=== PATIENT | male | born 1955 | race Two or more races ===

== ENCOUNTER → 2022-06-13 10:05 | Outpatient (BNVA) | payer OTHER, SELFPAY | PROVIDERS: PCP Hospitalist; Visit Provider Urology | DX: N52.9 Male erectile dysfunction, unspecified (principal); T83.9XXA Unspecified complication of genitourinary prosthetic device, implant and graft, initial encounter | CPT/HCPCS: 51798; 99202 ==

== ENCOUNTER → 2022-08-03 13:23 | Outpatient (BNVA) | payer OTHER, SELFPAY | PROVIDERS: PCP Hospitalist; Visit Provider Urology | DX: T83.9XXA Unspecified complication of genitourinary prosthetic device, implant and graft, initial encounter (principal) | CPT/HCPCS: 99212 ==

== ENCOUNTER → 2022-08-30 11:35 | Outpatient (BNVA) | payer OTHER, SELFPAY | PROVIDERS: PCP Hospitalist; Visit Provider Urology | DX: T83.9XXA Unspecified complication of genitourinary prosthetic device, implant and graft, initial encounter (principal); N52.9 Male erectile dysfunction, unspecified | CPT/HCPCS: 99212 ==

== ENCOUNTER 2022-09-25 07:47 | Day surgery (SDC) | payer OTHER, SELFPAY ==
[2022-09-14 11:30] VITALS: BMI 28.6
--- NOTE | 2022-09-19 14:03 | HO.ANESPROP2 ---
Documented by User: Yue Benedict NP 09/19/22 14:06 HPI - Anesthesia Eval Consult details Narrative: 66yo M for Penile Prosthesis revision Cardiology cleared [facility] Active Problems Active Problems: All Active Problems (Updated 08/23/22 @ 13:33 by Magnolia Ladd RN) Disorder of implanted penile prosthesis (Acute) Erectile dysfunction (Acute) Past Medical History Medical History Anxiety and depression BPH (benign prostatic hyperplasia) CAD (coronary artery disease) Diabetes mellitus Elevated cholesterol Erectile dysfunction HTN (hypertension) Low back pain Osteoporosis Surgical History Surgical History H/O colonoscopy History of ankle surgery History of back surgery History of penile implant Hx of appendectomy Hx of arthroscopic knee surgery Hx of CABG Social History Social History (Updated 09/14/22 @ 11:29 by Magnolia Ladd RN) Patient Tobacco Use Status: Former Tobacco user Quit Date: 2019 Tobacco use type: Cigarette Are you DNR?: No Advance Directives: No Advance Directives Information Provided: Yes Nutrition Risks: No Nutritional Risk Meds Allergies Allergy/AdvReac Type Severity Reaction Status Date / Time No Known Allergies Allergy Verified 09/25/22 08:10 [No Known Allergies*] Home Medications Medication Instructions Recorded Confirmed Last Taken Type blood sugar diagnostic (FreeStyle #10 ea 06/13/22 Unknown History Lite Strips) blood-glucose meter (FreeStyle #1 ea 06/13/22 Unknown History Lite Meter kit) cholecalciferol (vitamin D3) 25 25 mcg PO DAILY 06/13/22 09/14/22 Unknown History mcg (1,000 unit) tablet cyanocobalamin (vitamin B-12) 1,000 mcg PO DAILY 06/13/22 09/14/22 Unknown History 1,000 mcg tablet,extended release cyclobenzaprine 10 mg tablet 10 mg PO BEDTIME 06/13/22 Unknown History dulaglutide 3 mg/0.5 mL 3 mg subcut QWEEK 06/13/22 09/14/22 Unknown History subcutaneous pen injector (Trulicity) empagliflozin 25 mg tablet 25 mg PO DAILY 06/13/22 09/14/22 Unknown History (Jardiance) ferrous sulfate 325 mg (65 mg 325 mg PO DAILY 06/13/22 09/18/22 History iron) tablet (FeroSul) glipizide 10 mg tablet, extended 10 mg PO BID 06/13/22 09/14/22 Unknown History release 24 hr lancets 28 gauge (FreeStyle #100 ea 06/13/22 Unknown History Lancets) meloxicam 15 mg tablet 15 mg PO DAILY 06/13/22 Unknown History metformin 1,000 mg tablet 1,000 mg PO BID 06/13/22 09/14/22 Unknown History pantoprazole 20 mg tablet,delayed 20 mg PO DAILY 06/13/22 09/14/22 09/25/22 History release topiramate 25 mg tablet 25 mg PO BID 06/13/22 09/14/22 Unknown History aspirin 81 mg tablet,delayed 1 tab PO DAILY 08/23/22 09/14/22 09/18/22 History release atorvastatin 40 mg tablet 2 tab PO DAILY 08/23/22 09/14/22 Unknown History duloxetine 60 mg capsule,delayed 1 cap PO QAM 08/23/22 09/14/22 09/25/22 History release sulfasalazine 500 mg tablet 2 tab PO BID 08/23/22 09/14/22 Unknown History trazodone 100 mg tablet 1 tab PO BEDTIME 08/23/22 09/14/22 Unknown History Exam Exam Date and Time: September 19, 2022 1403 Height,Weight and Vital Signs: Height 5 ft 6 in Weight 80.5 kg Pertinent Lab Results Pertinent Lab Results: 03/2022 CBC, wnl BMP with elevated K @5.9 Narrative Narrative: ECHO 2019 LV nml in size, wall thickness, and systolic function EF 55-65% No RWMA Grade 1, mild DD with impaired LV relax No signif valve disease Assessment and Plan Assessment Anesthesia Assessment: Chart Reviewed Documented by User: Bang Stark MD 09/25/22 09:27 [facility] Past Medical History Medical History Anxiety and depression BPH (benign prostatic hyperplasia) CAD (coronary artery disease) Diabetes mellitus Elevated cholesterol Erectile dysfunction HTN (hypertension) Low back pain Osteoporosis Family History Family history of problems with anesthesia: No Surgical History Surgical History H/O colonoscopy History of ankle surgery History of back surgery History of penile implant Hx of appendectomy Hx of arthroscopic knee surgery Hx of CABG History of Problems with Anesthesia: No Social History Social History (Updated 09/14/22 @ 11:29 by Magnolia Ladd RN) Patient Tobacco Use Status: Former Tobacco user Quit Date: 2019 Tobacco use type: Cigarette Are you DNR?: No Advance Directives: No Advance Directives Information Provided: Yes Nutrition Risks: No Nutritional Risk Meds Allergies Allergy/AdvReac Type Severity Reaction Status Date / Time No Known Allergies Allergy Verified 09/25/22 08:10 [No Known Allergies*] Home Medications Medication Instructions Recorded Confirmed Last Taken Type blood sugar diagnostic ([employer]ston PharmaceuticalsStyle #10 ea 06/13/22 Unknown History Lite Strips) blood-glucose meter ([employer]Style #1 ea 06/13/22 Unknown History Lite Meter kit) cholecalciferol (vitamin D3) 25 25 mcg PO DAILY 06/13/22 09/14/22 Unknown History mcg (1,000 unit) tablet cyanocobalamin (vitamin B-12) 1,000 mcg PO DAILY 06/13/22 09/14/22 Unknown History 1,000 mcg tablet,extended release cyclobenzaprine 10 mg tablet 10 mg PO BEDTIME 06/13/22 Unknown History dulaglutide 3 mg/0.5 mL 3 mg subcut QWEEK 06/13/22 09/14/22 Unknown History subcutaneous pen injector (Trulicity) empagliflozin 25 mg tablet 25 mg PO DAILY 06/13/22 09/14/22 Unknown History (Jardiance) ferrous sulfate 325 mg (65 mg 325 mg PO DAILY 06/13/22 09/18/22 History iron) tablet (FeroSul) glipizide 10 mg tablet, extended 10 mg PO BID 06/13/22 09/14/22 Unknown History release 24 hr lancets 28 gauge (FreeStyle #100 ea 06/13/22 Unknown History Lancets) meloxicam 15 mg tablet 15 mg PO DAILY 06/13/22 Unknown History metformin 1,000 mg tablet 1,000 mg PO BID 06/13/22 09/14/22 Unknown History pantoprazole 20 mg tablet,delayed 20 mg PO DAILY 06/13/22 09/14/22 09/25/22 History release topiramate 25 mg tablet 25 mg PO BID 06/13/22 09/14/22 Unknown History aspirin 81 mg tablet,delayed 1 tab PO DAILY 08/23/22 09/14/22 09/18/22 History release atorvastatin 40 mg tablet 2 tab PO DAILY 08/23/22 09/14/22 Unknown History duloxetine 60 mg capsule,delayed 1 cap PO QAM 08/23/22 09/14/22 09/25/22 History release sulfasalazine 500 mg tablet 2 tab PO BID 08/23/22 09/14/22 Unknown History trazodone 100 mg tablet 1 tab PO BEDTIME 08/23/22 09/14/22 Unknown History Exam Airway Mallampati Class: II TM Dist: >3cm Neck ROM: Full Loose/Missing/Broken Teeth: No Heart: rrr Lungs: clear Assessment and Plan Final Anesthetic Review Family History of Problems with Anesthesia: No History of Problems with Anesthesia: No NPO: Yes ASA Class: III Final Preanesthetic Review: No Changes in Pt Med Stat, Meds/Allgs Chart Reviewed, Consent Obtained/Reviewed and Anes Risks/Benef Reviewed Patient Risk: Intermediate Procedure Risk: Low Anesthetic Plan Anesthetic Plan: GA Disposition: Standard PACU
[2022-09-25] VITALS (11 sets, daily range): BP systolic 135–174; BP diastolic 66–89; PULSE 59–72; RESP 12–18; TEMP 36.1–36.7; O2SAT 97–100
--- NOTE | 2022-09-25 | ECG_ITS ---
Test Reason : preop Blood Pressure : / mmHG Vent. Rate : 066 BPM Atrial Rate : 066 BPM P-R Int : 188 ms QRS Dur : 098 ms QT Int : 394 ms P-R-T Axes : 081 052 087 degrees QTc Int : 413 ms Normal sinus rhythm with sinus arrhythmia Inferior infarct , age undetermined Nonspecific T wave abnormality Abnormal ECG No previous ECGs available Referred By: Yue Benedict Electronically Signed By:SAJI PEDRAZA MD
[2022-09-25 08:22] LABS: Glucose, Whole Blood 146 mg/dL (60-115)
[2022-09-25] MEDS: Lactated Ringers 1,000 ML 100 ML IVCONT (08:24)
[2022-09-25] MEDS: Acetaminophen 325 MG TABLET 650 MG PO (08:40)
[2022-09-25 09:13] LABS: Blood Urea Nitrogen 24 mg/dL (9-16); Calcium 9.4 mg/dL (8.4-10.2); Creatinine Clr Calc Pharmacy 91.8; Estimated Glomerular Filt Rate > 60; Glucose Fasting 129 mg/dL (60-99)
[2022-09-25 09:32] LABS: Anion Gap 14 (12-20); Carbon Dioxide 23 mmol/L (22-29); Chloride 108 mmol/L (96-108); Potassium 4.4 mmol/L (3.3-5.1); Sodium 141 mmol/L (135-145)
--- NOTE | 2022-09-25 11:47 | MHC.SHP ---
Pre-Procedural Eval Section A Date of Service: 09/25/22 The patient is an INPATIENT: No Changes since office visit: No Cold of Flu in the past 2 weeks, No New Medical Problems, No Changes in Medication and No Patient answered all questions The History & Physical has been completed within 30 days and I have reviewed it.: Yes Section B Chief Complaint: Male erectile dysfunction, unspecified Allergies: Allergies Allergy/AdvReac Type Severity Reaction Status Date / Time No Known Allergies Allergy Verified 09/25/22 08:10 [No Known Allergies*] Plan Diagnosis/Plan: Unchanged (Revision and/or replacement of penile prosthetic) I have reviewed the history and physical and performed a pertinent physical examination on my patient. No changes have occurred unless specified.
--- NOTE | 2022-09-25 11:48 | W.PM.OPN ---
Operative Note Operative Note Date of Service: 09/25/22 Narrative: PreOperative Diagnosis: Erectile dysfunction with malfunctioning penile prosthetic Post Operative Diagnosis: erectile dysfunction with malfunctioning three-piece penile prosthetic Procedure: penile prosthetic removal and replacement with 2 piece ambicor prosthetic Surgeon: Dr Thony Lord Anesthesia: general Indications for procedure: prior placement of three-piece prosthetic using infrapubic approach. Has malfunction of penile pump in penile pump is riding high in scrotum in unable to be accessed. Patient would like to have removal with replacement of semi inflatable prosthetic. He is diabetic Procedure: After informed consent was verified the patient was brought to the operating room and placed in a supine position. Anesthesia was administered per protocol. The patient was prepped and draped in a sterile fashion. Safety pause time-out performed. Antibiotics have been given. Since he is a diabetic he was given triple coverage with IV cefazolin, Pip-Tazo and fluconazole. Per 2019 guideline. Wilcox catheter was placed on the field. Bladder was drained. Hixson retractor placed. Local antibiotics infiltrated along median raphe A Penile scrotal incision was made and taken down to the tunica. Dissection was performed 1st on the left side and then on the right side to fully expose tunica of the corpora. At this point stay hooks were placed. The penile pump was dissected free from reactive tissue and released. The reserve wire tubing was followed up into the groin and since the bulb of the reservoir was unable to be felt the reservoir was divided. This is performed after the indwelling prosthetic had been partially inflated. incision was made through the left corporal wall onto the indwelling penile prosthetic. The appropriate tubing was identified and divided. The prosthetic was then removed from the corporal body and handed off the field. It measured 15 cm with no rear tip extenders. A similar procedure was repeated for the right side. Using Hegar dilators the corporal body was dilated until it could accept a 13 Hegar dilator. Similar procedure was repeated on the right-hand side. The corporal bodies were washed with antibiotic normal saline. 3-0 Vicryl stay sutures were placed through the tunica and labeled and marked bilaterally. At this point the measuring device was introduced. Posterior measured at Nine cm and the front measured approximately 10 cm on the left. on the right 10cm/9cm. A penile prosthetic ambicor 18 cm with 1 cm rear tip extenders was used. The introducer needle was used to thread the distal tip threaded from the prostatic on the right side. This was then introduced through corporal defect and the needle removed out through the glans of the penis. The prosthetic was then placed into the corporal body with the posterior aspect 1st using the enclosed pusher device. Once the posterior aspect had been introduced the anterior aspect was then introduced and brought out to the distal portion of the corpora. This was done 1st on the right side and then repeated on the left side. The penile prosthetic was inflated. Good positioning was seen. Minimal buckling was seen at the corporal incision site. The penile prosthetic was deflated. The stay sutures through the tunica was then secured. The scrotum was irrigated. Blunt dissection was performed to create a scrotal pocket. 3-0 Vicryl was then used to secure tissue so the pump was kept in the dependent position. Tissue was reapproximated with 3-0 Vicryl in both the horizontal and then vertical fashion. At least 2 layers were placed over all tubing. Skin was closed using Running Monocryl suture followed by glue. Wilcox catheter was removed. He tolerated the procedure well was extubated in operating room transferred in stable condition to the recovery area.
[2022-09-25] MEDS: fentaNYL citrate/PF 100 MCG/2 ML VIAL 25 MCG IVPUSH ×4 (11:56→12:36)
[2022-09-25] MEDS: oxyCODONE HCl Immed Release 5 MG TABLET 10 MG PO (12:05)
== END 2022-09-25 13:57 | disposition home or self-care (01) ==
PROVIDERS: Nurse Practitioner; PCP Hospitalist; Visit Provider Urology
PROC: (CPT 54410; principal; 2022-09-25 09:40)
DX: T83.490A Other mechanical complication of implanted penile prosthesis, initial encounter (principal); Y83.8 Other surgical procedures as the cause of abnormal reaction of the patient, or of later complication, without mention of misadventure at the time of the procedure; Y92.9 Unspecified place or not applicable; N52.9 Male erectile dysfunction, unspecified; E11.9 Type 2 diabetes mellitus without complications; I10 Essential (primary) hypertension; I25.10 Atherosclerotic heart disease of native coronary artery without angina pectoris; Z79.82 Long term (current) use of aspirin; Z79.84 Long term (current) use of oral hypoglycemic drugs; Z79.899 Other long term (current) drug therapy
CPT/HCPCS: 54410; 36415; 80048; 82947; 93005; C1813; J0690; J1100; J1450; J1580; J2250; J2405; J2543; J2795; J3010

== ENCOUNTER 2022-10-11 13:26 | Outpatient (AMB) | payer MEDICARE, MEDICAID, SELFPAY ==
--- OUTSIDE RECORDS SUMMARY | 2022-10-11 13:28 | XMS_ITS | Continuity of Care Document ---
:1955 Author Organization [facility] Address [address] [place] [address]- Care Team Providers Name Role Phone Ko Kenyon MD Primary Care Physician [place] [facility] [place] 07/04/22 - 09/01/22 [facility] [address] [place] [id number] Attending Physician: Bj Jerez DO Admitting Physician: Bj Jerez DO Allergies, Adverse Reactions, Alerts No Known Allergies Immunizations Not Given Vaccine Date Status Refusal Reason pneumococcal 23-valent vaccine1 05/24/20 Not Given Patient Refuses 1Result Comment: Already received from PCP Medications Artificial Tears 1.4% Eyes, Both, Every 4 hours, PRN Other, Dryness., 0 Refills, Maintenance, 05/28/20 12:34:00 EDT, OphthSolution Start Date: 05/28/20 Status: OrderedAspirin = 81 mg, By Mouth, Daily, 0 Refills, Maintenance Start Date: 04/06/11 Status: Orderedatorvastatin 80 mg oral tablet 1 tablet = 80 mg, By Mouth, Daily, # 30 tablet, 11 Refills, Maintenance, 08/23/22 13:43:00 EDT, Tablet, [facility], 168, cm, 08/23/22 13:18:00 EDT, Height Start Date: 08/23/22 Status: Orderedclopidogrel 75 mg oral tablet 75 mg, 1, tablet, By Mouth, Daily, # 30 tablet, Refills 0, Tot. Refills 0, Maintenance, 05/28/20 12:51:00 EDT, Route to Pharmacy Electronically, [facility] #[id number], 168, cm, 05/28/20 11:19:00 EDT, Height, 91.1, kg, 05/21/20 8:37:00 EDT, Dry W... Start Date: 05/28/20 Stop Date: 06/27/20 Status: Ordereddocusate sodium 100 mg oral capsule 100 mg, 1, capsule, By Mouth, 2 times a day, over the counter hold if +Diarrhea, # 60 capsule, Refills 0, Tot. Refills 0, Maintenance, 05/28/20 12:50:00 EDT, Route to Pharmacy Electronically, [facility] #[id number], 168, cm, 05/28/20 11:19:00 ED... Start Date: 05/28/20 Stop Date: 06/27/20 Status: OrderedGlipiZIDE XL 10 mg oral tablet, extended release 1 tablet = 10 mg, By Mouth, Daily, # 30 tablet, 0 Refills, Maintenance, 10/07/15 12:50:05, ER Tablet Start Date: 10/07/15 Status: Orderedisosorbide mononitrate 30 mg oral tablet, extended release 30 mg, 1, tablet, By Mouth, Daily in AM, # 30 tablet, Refills 5, Tot. Refills 5, Maintenance, 05/28/20 14:07:00 EDT, Route to Pharmacy Electronically, [facility] #[id number], 168, cm, 05/28/20 11:19:00 EDT, Height, 91.1, kg, 05/21/20 8:37:00 EDT,... Start Date: 05/28/20 Stop Date: 11/24/20 Status: Orderedlisinopril 5 mg oral tablet 5 mg, 1, tablet, By Mouth, Daily, # 30 tablet, Refills 11, Tot. Refills 11, Maintenance, 08/23/22 13:47:00 EDT, Route to Pharmacy Electronically, [facility] #[id number], Partial fill upon patientrequest if the prescription is for a schedule II opio... Start Date: 08/23/22 Status: Orderedmetformin 1000 mg oral tablet 1 tablet, By Mouth, 2 times a day, # 180 tablet, 0 Refills, Maintenance, Tablet Start Date: 04/06/11 Status: Orderedpantoprazole 40 mg oral delayed release tablet 1 tablet = 40 mg, By Mouth, Daily, # 30 tablet, 0 Refills, Maintenance, 05/28/20 12:50:00 EDT, EC Tablet, 168, cm, 05/28/20 11:19:00 EDT, Height, 91.1, kg, 05/21/20 8:37:00 EDT, Dry Weight Start Date: 05/28/20 Stop Date: 06/27/20 Status: OrderedSilvadene 50 Gm Topical 1 applicator = 50 Gm, Topically, 2 times a day, 0 Refills, Maintenance, Cream Start Date: 05/28/20 Status: OrderedToprol XL 25 mg oral tablet, extended release 25 mg, 1, tablet, By Mouth, Daily in AM, # 30 tablet, Refills 0, Tot. Refills 0, Maintenance, 05/28/20 12:50:00 EDT, Route to Pharmacy Electronically, [facility] #[id number], 168, cm, 05/28/20 11:19:00 EDT, Height, 91.1, kg, 05/21/20 8:37:00 EDT,... Start Date: 05/28/20 Stop Date: 06/27/20 Status: OrderedTrulicity Pen 0.75 mg/0.5 mL subcutaneous solution 0.5 mL = 0.75 mg, Subcutaneous Injection, Every week, rotate injection sites, # 2 mL, 0 Refills, Maintenance, 05/17/20 14:03:00 EDT, Solution Start Date: 05/17/20 Status: OrderedVitamin C 500 mg oral tablet 1 tablet = 500 mg, By Mouth, Daily, # 30 tablet, 0 Refills, Maintenance, 05/05/20 10:19:00 EDT, Tablet Start Date: 05/05/20 Status: OrderedVitamin D3 = 1,000 International_Units, By Mouth, Daily, 0 Refills, Maintenance Start Date: 04/06/11 Status: Orderedzinc sulfate 220 mg oral capsule 220 mg, 1, capsule, By Mouth, Daily, # 100 capsule, Refills 0, Maintenance, 05/05/20 10:19:00 EDT Start Date: 05/05/20 Status: Ordered Problem List Condition Confirmation Course Effective Dates Status Health I nformant Status Ankle pain Confirmed Active Anxiety Confirmed Active Depressive Disorder, Confirmed Active Not Elsewhere Classified Diabetes mellitus - Confirmed Active adult onset Ex-cigarette smoker, Confirmed Active 5-6 cigarettes qd X20+years, quit 01/2020 GERD Confirmed Active (gastroesophageal reflux disease) History of surgery1 Confirmed Active Lumbar disc disease Confirmed Active with radiculopathy Other Pain Disorders Confirmed Active Related to Psychological Factors Personality disorder Confirmed Active NOS Posttraumatic Stress Confirmed Active Disorder Swelling of ankle Confirmed Active Well male adult Confirmed Active 1PROCEDURE DATE: 08/26/2012 SURGEON: Faisal Chaudhry M.D. CO-SURGEON: Anterior exposure, Ventura Torres M.D. PREOPERATIVE DIAGNOSIS: Painful disk resorption L5-S1. POSTOPERATIVE DIAGNOSIS: Painful disk resorption L5-S1. PROCEDURES: 1. Anterior disk excision. 2. Partial corpectomy. 3. Interbody fusion with Danek LT titanium cages. 4. InFUSE BMP. Social History Social History Type Response Smoking Status Former smoker; Other: quit 2 months ago; entered on: 08/26/18 Sex Patient Care team information PersonnelName: Ko Kenyon MD Address: Address: [address] [place] [address]
--- OUTSIDE RECORDS SUMMARY | 2022-10-11 13:29 | XMS_ITS | Continuity of Care Document ---
:1955 Author Organization [facility] Address [address] [place] [id number]- Care Team Providers Name Role Phone Ko Kenyon MD Primary Care Physician [place] [facility] [place] [facility] [address] [place] [id number] Allergies, Adverse Reactions, Alerts No Known Allergies [...] 05/28/20 12:51:00 EDT, Route to Pharmacy Electronically, [facility] #[id number], 168, cm, 05/28/20 11:19:00 EDT, Height, 91.1, kg, 05/21/20 8:37:00 EDT, Dry W... Start Date: 05/28/20 Stop Date: 06/27/20 Status: Ordereddocusate sodium 100 mg oral capsule 100 mg, 1, capsule, By Mouth, 2 times a day, over the counter hold if +Diarrhea, # 60 capsule, Refills 0, Tot. Refills 0, Maintenance, 05/28/20 12:50:00 EDT, Route to Pharmacy Electronically, [facility] #[id number], 168, cm, 05/28/20 11:19:00 ED... Start Date: [...] 05/28/20 14:07:00 EDT, Route to Pharmacy Electronically, [facility] #[id number], 168, cm, 05/28/20 11:19:00 EDT, Height, 91.1, [...] 05/28/20 12:50:00 EDT, Route to Pharmacy Electronically, [facility] #[id number], 168, cm, 05/28/20 11:19:00 EDT, Height, 91.1, [...] DATE: 08/26/2012 SURGEON: Faisal Chaudhry M.D. CO-SURGEON: Leyda casey, Ventura Torres M.D. PREOPERATIVE DIAGNOSIS: Painful disk resorption L5-S1. POSTOPERATIVE DIAGNOSIS: Painful disk resorption L5-S1. PROCEDURES: 1. Anterior disk excision. 2. Partial corpectomy. 3. Interbody fusion with Danek LT titanium cages. 4. InFUSE BMP. Social History Social History Type Response Smoking Status Former smoker; Other: quit 2 months ago; entered on: 08/26/18 Sex Patient Care team information Care Team PersonnelName: Lety Banda RN Position: S RN Supv Member Role: Primary Care Nurse Name: Sabrina Carmona RN Position: S RN Member Role: Primary Care Nurse Name: Tram Mott RN Position: S RN Member Role: Primary Care Nurse Name: Ko Kenyon MD Position: [facility] Physician (General Medicine) Member Role: PCP Address: Address: [address] [place] [address] Name: Puja Montalvo RN Position: S RN Member Role: Primary Care Nurse Name: Yue Schwartz RN Position: S RN Member Role: Primary Care Nurse Name: Lula Griffin RN Position: [facility] PCO RN Member Role: Primary Care Nurse Care Team Related PersonsName: EMILY HUMMEL Address: home [address] [place] [id number] Name: KATIE HUMMEL Address: home [address] [place] [address]
--- NOTE | 2022-10-11 13:44 | MHC.OFFVIS ---
Intake Intake Visit Reasons: 2 week (prosthetic revision) Intake Note: Patient is Present Post Op Follow Up Procedure: Prosthetic Revision 09/25/2022 Urology Medication: None Blood Thinner: Aspirin Assistant Construction Superintendent Required: No Allergies No Known Allergies [No Known Allergies*] Allergy (Verified 06/13/23 14:43) HPI HPI Comments History of Present Illness Details Neville is a pleasant French male. He is a patient of Dr. Kenyon. He is seen for the following urologic conditions - erectile dysfunction Erectile dysfunction - malfunctioning penile pump Penile prosthetic placed 2015. Unable to use pump. Pump examined in office today Difficult to initiate compression of both pump bulb and lockout mechanism Pump was reset and inflation cycle completed Despite reset with cycle completion patient would like to pursue conversion to semi rigid prosthetic Would like to convert to semi rigid PFSH Medical History (Updated 12/14/23 @ 04:31 by Thony Lord MD) Elevated cholesterol BPH (benign prostatic hyperplasia) Osteoporosis Anxiety and depression CAD (coronary artery disease) HTN (hypertension) Erectile dysfunction Low back pain Diabetes mellitus Surgical History Hx of appendectomy History of ankle surgery H/O colonoscopy Hx of arthroscopic knee surgery Hx of CABG History of back surgery History of penile implant Social History Patient Tobacco Use Status: Former Tobacco user Quit Date: 2019 Tobacco use type: Cigarette Review of Systems Const Denies chills and Denies fever(s) Card Reports no additional complaints and Denies syncope Resp Denies cough GI Denies abdominal pain and Denies heartburn Reports as per HPI and Denies change in libido Neuro Denies syncope Psych Denies change in libido Endo Denies change in libido Physical Exam Const General: cooperative, healthy appearing, comfortable and no acute distress Orientation/consciousness: patient oriented x3 HEENT Face and sinus: Yes normal facial exam Mouth: moist mucous membranes Neck Neck: Yes normal visual inspection, Yes full ROM and Yes trachea midline Chest Chest palpation & inspection: normal inspection of the chest Resp Effort & Inspection: normal respiratory effort, able to speak in complete sentences and no respiratory distress GI Inspection: Yes normal to inspection Back/Spine/Pelvis Cervical Spine: normal cervical lordosis Thoracic/Lumbar Spine: thoracic and lumbar spine normal to inspection Skin General skin exam: no rashes or lesions noted Neuro General: patient oriented x3, gait normal, tone normal and moves all extremities Extrem General: Yes normal to inspection and Yes capillary refill normal Assessment & Plan Assessment & Plan (1) Disorder of implanted penile prosthesis: Code(s): T83.9XXA - Unspecified complication of genitourinary prosthetic device, implant and graft, initial encounter (2) Erectile dysfunction: Code(s): N52.9 - Male erectile dysfunction, unspecified (3) BPH (benign prostatic hyperplasia): Code(s): N40.0 - Benign prostatic hyperplasia without lower urinary tract symptoms Plan Schedule cystoscopy Medications: New diazepam Take medication after arrival at office 2 mg PO BID PRN 2 tabs 0RF anxiety 1 day N52.9 - Male erectile dysfunction, unspecified, F41.8 - Other specified anxiety disorders Patient Instructions: Imaging studies, laboratory and physical exam results were discussed and reviewed in detail. No major barriers to patient understanding were identified. An opportunity to ask questions regarding the treatment plan was provided. All questions were answered. The patient expressed understanding and agreement with the above treatment plan. The patient is aware they should contact our office by phone for worsening of their current condition or the appearance of new urologic symptoms. Compliance is encouraged with any medications and followup testing that is ordered. It is a privilege to participate in the urologic care of your patient. If you have any questions or concerns regarding treatment for the above conditions, or other urologic issues, please do not hesitate to contact me. The office telephone contact is [phone]. This note is constructed using voice recognition software. While every effort has been made to ensure accuracy associate professor of theatre errors may have been included. Yours sincerely, Dr Thony Lord MD, TIFF[facility] - Urology Providers of Expert, Compassionate Care for the Genitourinary System Coding Level of Care Code Est Pt Level 3 (63436) Diagnoses Disorder of implanted penile prosthesis T83.9XXA Erectile dysfunction N52.9 BPH (benign prostatic hyperplasia) N40.0
== END 2022-10-11 14:08 | disposition home or self-care (01) ==
LOC: HO.HUSH 13:26
PROVIDERS: PCP Hospitalist; Visit Provider Urology
DX: T83.9XXA Unspecified complication of genitourinary prosthetic device, implant and graft, initial encounter (principal); N52.9 Male erectile dysfunction, unspecified; N40.0 Benign prostatic hyperplasia without lower urinary tract symptoms
CPT/HCPCS: 99024

== ENCOUNTER → 2022-10-11 13:26 | Outpatient (BNVA) | payer MEDICARE, MEDICAID, SELFPAY | PROVIDERS: PCP Hospitalist; Visit Provider Urology | DX: T83.9XXD Unspecified complication of genitourinary prosthetic device, implant and graft, subsequent encounter (principal); N52.9 Male erectile dysfunction, unspecified; N40.0 Benign prostatic hyperplasia without lower urinary tract symptoms | CPT/HCPCS: 99212 ==

== ENCOUNTER → 2022-10-20 14:56 | Outpatient (BNVA) | payer MEDICARE, MEDICAID, SELFPAY | PROVIDERS: PCP Hospitalist; Visit Provider Urology | DX: N52.9 Male erectile dysfunction, unspecified (principal); T83.9XXD Unspecified complication of genitourinary prosthetic device, implant and graft, subsequent encounter | CPT/HCPCS: 99212 ==

== ENCOUNTER → 2022-12-13 14:51 | Outpatient (BNVA) | payer MEDICARE, MEDICAID, SELFPAY | PROVIDERS: PCP Hospitalist; Visit Provider Urology | DX: T83.9XXA Unspecified complication of genitourinary prosthetic device, implant and graft, initial encounter (principal); N52.9 Male erectile dysfunction, unspecified | CPT/HCPCS: 99212 ==

== ENCOUNTER 2023-06-13 14:34 | Outpatient (AMB) | payer MEDICARE, MEDICAID, SELFPAY ==
--- NOTE | 2023-06-13 14:43 | MHC.OFFVIS ---
Intake Intake Visit Reasons: 6m follow up Intake Note: Patient is present for Follow Up Urology Med: None Antibiotic Allergy: None Blood Thinner: Aspirin [facility] [place] Allergies No Known Allergies [No Known Allergies*] Allergy (Verified 06/13/23 14:43) HPI HPI Comments History of Present Illness Details Neville is a pleasant Lao male. He is a patient of Dr. Kenyon. He is seen for the following urologic conditions - erectile dysfunction Six month follow-up for penile prosthetic Sufficient for usage Highlighted deflation process 12 month follow-up Erectile dysfunction - malfunctioning penile pump Penile prosthetic placed 2015. Unable to use pump. Pump examined in office today Difficult to initiate compression of both pump bulb and lockout mechanism Pump was reset and inflation cycle completed Despite reset with cycle completion patient would like to pursue conversion to semi rigid prosthetic Revision prosthetic 10/19 2 piece Ambic[facility] Medical History Anxiety and depression BPH (benign prostatic hyperplasia) CAD (coronary artery disease) Diabetes mellitus Elevated cholesterol Erectile dysfunction HTN (hypertension) Low back pain Osteoporosis Surgical History H/O colonoscopy History of ankle surgery History of back surgery History of penile implant Hx of appendectomy Hx of arthroscopic knee surgery Hx of CABG Social History Patient Tobacco Use Status: Former Tobacco user Quit Date: 2019 Tobacco use type: Cigarette Review of Systems Const Denies chills and Denies fever(s) Card Reports no additional complaints and Denies syncope Resp Denies cough GI Denies abdominal pain and Denies heartburn Reports as per HPI and Denies change in libido Neuro Denies syncope Psych Denies change in libido Endo Denies change in libido Physical Exam Const General: cooperative, healthy appearing, comfortable and no acute distress Orientation/consciousness: patient oriented x3 HEENT Face and sinus: Yes normal facial exam Mouth: moist mucous membranes Neck Neck: Yes normal visual inspection, Yes full ROM and Yes trachea midline Chest Chest palpation & inspection: normal inspection of the chest Resp Effort & Inspection: normal respiratory effort, able to speak in complete sentences and no respiratory distress GI Inspection: Yes normal to inspection Back/Spine/Pelvis Cervical Spine: normal cervical lordosis Thoracic/Lumbar Spine: thoracic and lumbar spine normal to inspection Skin General skin exam: no rashes or lesions noted Neuro General: patient oriented x3, gait normal, tone normal and moves all extremities Extrem General: Yes normal to inspection and Yes capillary refill normal Assessment & Plan Assessment & Plan (1) Disorder of implanted penile prosthesis: Code(s): T83.9XXA - Unspecified complication of genitourinary prosthetic device, implant and graft, initial encounter (2) Erectile dysfunction: Code(s): N52.9 - Male erectile dysfunction, unspecified Plan Twelve month follow-up Patient Instructions: Imaging studies, laboratory and physical exam results were discussed and reviewed in detail. No major barriers to patient understanding were identified. An opportunity to ask questions regarding the treatment plan was provided. All questions were answered. The patient expressed understanding and agreement with the above treatment plan. The patient is aware they should contact our office by phone for worsening of their current condition or the appearance of new urologic symptoms. Compliance is encouraged with any medications and followup testing that is ordered. It is a privilege to participate in the urologic care of your patient. If you have any questions or concerns regarding treatment for the above conditions, or other urologic issues, please do not hesitate to contact me. The office telephone contact is [phone]. This note is constructed using voice recognition software. While every effort has been made to ensure accuracy tape control skin or spar mill operator errors may have been included. Yours sincerely, Dr Thony Lord MD, [facility] - Urology Providers of Expert, Compassionate Care for the Genitourinary System Coding Level of Care Code Est Pt Level 3 (42424) Diagnoses Disorder of implanted penile prosthesis T83.9XXA Erectile dysfunction N52.9
== END 2023-06-13 15:01 | disposition home or self-care (01) ==
PROVIDERS: Visit Provider Urology
DX: T83.9XXA Unspecified complication of genitourinary prosthetic device, implant and graft, initial encounter (principal); N52.9 Male erectile dysfunction, unspecified
CPT/HCPCS: 99213

== ENCOUNTER → 2023-06-13 14:34 | Outpatient (BNVA) | payer MEDICARE, MEDICAID, SELFPAY | PROVIDERS: Visit Provider Urology | DX: T83.9XXA Unspecified complication of genitourinary prosthetic device, implant and graft, initial encounter (principal); N52.9 Male erectile dysfunction, unspecified | CPT/HCPCS: 99212 ==

== ENCOUNTER 2024-03-06 09:42 | Outpatient (AMB) | payer MEDICARE, MEDICAID, SELFPAY ==
--- NOTE | 2024-03-06 09:47 | A.OFFVIS_ITS ---
Vital Signs 03/06/24 09:48 Height 5 ft 6 in Weight 165 lb 5.547 oz BMI 26.7 BP 124/82 Blood Pressure Location Lt brachial Position Sitting Pulse 62 Intake Visit Reasons: ANIMAL CARE TAKER/Dr. Kenyon/Hypertension (rs) Intake Note: New patient dx CAD was seeing bonderizer operator at [facility] [place] but insurance has changed had CABG in the past Director Cloud Transformation Required: Yes Director Cloud Transformation Name: Marge richardson Allergies No Known Allergies [No Known Allergies*] Allergy (Verified 06/13/23 14:43) Medication List - Last Reconciled 03/06/24 by Som Jimenez MD aspirin 81 mg PO DAILY atorvastatin 80 mg PO DAILY blood sugar diagnostic (FreeStyle Lite Strips) As directed blood-glucose meter (FreeStyle Lite Meter kit) As directed cholecalciferol (vitamin D3) 25 mcg PO DAILY cyanocobalamin (vitamin B-12) ER 1,000 mcg PO DAILY cyclobenzaprine 10 mg PO BEDTIME diazepam 2 mg PO BID PRN 1 day docusate sodium 100 mg PO DAILY PRN dulaglutide (Trulicity) 3 mg subcut QWEEK duloxetine 60 mg PO QAM empagliflozin (Jardiance) 25 mg PO DAILY ferrous sulfate (FeroSul) 325 mg PO DAILY glipizide ER 10 mg PO BID lancets (FreeStyle Lancets) As directed meloxicam 15 mg PO DAILY metformin 1,000 mg PO BID pantoprazole 20 mg PO DAILY simethicone (Gas Relief Extra Strength) 125 mg PO DAILY PRN sulfasalazine 2 tabs PO BID topiramate 25 mg PO BID trazodone 1 tab PO BEDTIME zolpidem 10 mg PO BEDTIME PRN HPI Comments Details: Thank you for referring Neville in cardiology consultation today for management of coronary artery disease. He has a pleasant 68-year-old Kosovan male, history obtained with help of for translator interpreter over the phone. Patient in 2019 underwent 4 vessel coronary artery bypass grafting for what appears to be severe [place] three-vessel disease for symptoms of progressive angina. Patient underwent GUERRERO to LAD, SVG to diagonal and RCA as well as the free radial to OM. Patient has done well extremely since then. He said he has no restriction to his activity level now. He can walk for long period time and go up and down stairs without any issues. Denies any symptoms of angina. Denies any symptoms of heart failure. No worsening shortness of breath, orthopnea, PND, leg edema. No prolonged palpitations irregular heartbeat. He takes all his medications. Do not have a copy of his most recent lipid panel. He said he is scheduled to see vascular surgery in near future with plan for possible carotid surgery although he has not entirely clear. He takes all his medications. Since his surgery as start smoking. He says diabetes under good control. Blood pressure is generally well controlled. He is on high-intensity statin therapy. [facility] Medical History Elevated cholesterol BPH (benign prostatic hyperplasia) Osteoporosis Anxiety and depression CAD (coronary artery disease) HTN (hypertension) Erectile dysfunction Low back pain Diabetes mellitus Surgical History Hx of appendectomy History of ankle surgery H/O colonoscopy Hx of arthroscopic knee surgery Hx of CABG History of back surgery History of penile implant Social History Patient Tobacco Use Status: Former Tobacco user Quit Date: 2019 Tobacco use type: Cigarette Review of Systems Const Denies chills, Denies daytime sleepiness, Denies fatigue, Denies fever(s), Denies frequent falls, Denies poor appetite, Denies snoring, Denies stops breathing during sleep, Denies weakness, Denies weight gain and Denies weight loss Eyes Denies loss of vision ENT Denies dizziness and Denies hearing loss Card Denies chest pain, Denies claudication, Denies leg edema, Denies lightheadedness, Denies palpitations, Denies dyspnea, Denies dyspnea on exertion and Denies orthopnea Resp Denies cough, Denies excessive phlegm production, Denies dyspnea, Denies dyspnea on exertion, Denies snoring and Denies wheezing GI Denies abdominal pain, Denies hematochezia, Denies change in bowel habits, Denies nausea and Denies vomiting Denies dysuria and Denies urinary frequency Musc Denies arthralgias, Denies muscle weakness, Denies numbness and Denies other (frequent falls) Skin/Breast Denies nail changes and Denies rash Neuro Denies Abnormal speech present, Denies dizziness, Denies frequent falls, Denies loss of vision, Denies memory loss, Denies numbness and Denies weakness Psych Denies depression and Denies memory loss Endo Denies fatigue and Denies palpitations Jaret/Lymph Reports easy bruising and Reports other (anemia) Aller/Immun Denies wheezing Physical Exam Vital Signs: Last Vital Signs Pulse 62 03/06/24 09:48 BP 124/82 03/06/24 09:48 BMI result Body Mass Index 26.7 Const General: cooperative, comfortable, no acute distress, well developed, alert, awake, Physically active and well groomed Nutritional Appearance: average body habitus and well nourished Orientation/consciousness: patient oriented x3 Limitations: no limitations HEENT Head: Yes normocephalic and Yes atraumatic Neck Neck: Yes trachea midline, Yes supple and Yes no JVD Carotids: bruit bilateral Chest Chest palpation & inspection: other (Well-healed sternotomy scar) Resp Effort & Inspection: normal respiratory effort Auscultation: clear to auscultation bilaterally Cardio Jugular venous distension: no JVD Palpation: normal PMI Rate: regular rate Rhythm: regular rhythm Heart sounds: S1 normal heart sound present, S2 normal heart sound present, no click, no gallops, no murmurs and no rubs Bruits: carotid bruit bilaterally GI Auscultation: normal bowel sounds Skin General skin exam: no rashes or lesions noted Neuro General: patient oriented x3 and no focal motor deficits Speech: No Abnormal speech present Extrem General: Yes no clubbing, cyanosis or edema Psych Appearance: grossly normal Office Procedures EKG Details: EKG shows normal sinus rhythm with 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 Currently he is completely asymptomatic and has good functional status. No current workup is indicated however in 5 years which is next year he will require surveillance for venous graft patency as recommendations. Will schedule him for exercise myocardial perfusion imaging next year. Will also suggest an echocardiogram at that point time to evaluate LV systolic and diastolic function especially given his inferior Q-waves which suggest a prior infarcted segments. He has currently not on any therapy for blood pressure. See below. Diabetes requires aggressive control. Goal hemoglobin A1c less than 7%. Goal LDL should be closer to 60 mg/dL. Will obtain his last lipid panel if done within last 6 months otherwise request a repeat lipid panel. Continue high-intensity statin therapy. Continue aspirin for life. Advised to call me with any new symptoms. Management was discussed with help of translator interpreter. He seemed to show understanding. (2) HTN (hypertension): Code(s): I10 - Essential (primary) hypertension Category: Medical Plan: Hypertension, doing well and blood pressure today is well optimized. Currently not on any antihypertensive and is possible that since losing weight his blood pressure is better controlled. Probably does not require any medications. However advised to monitor blood pressure at home maintain a log. Goal blood pressure less than 130/84. Smoking cessation was applauded. Low-salt diet was discussed. He understands agrees. Encouraged to continue maintain activity level as tolerated. Will follow up in the clinic in 1 year's time, sooner p.r.n.. Thank you for allowing me to partake in his care Coding Level of Care Code New Pt Level 4 (96414) Diagnoses CAD (coronary artery disease) I25.10 HTN (hypertension) I10 CPT Codes EKG - CPT: [id number], Complete ([id number])
[2024-03-06 09:48] VITALS: BP 124/82; PULSE 62; BMI 26.7
== END 2024-03-06 10:34 | disposition home or self-care (01) ==
PROVIDERS: PCP Hospitalist; Visit Provider Internal Medicine Cardiovascular Disease
DX: I25.10 Atherosclerotic heart disease of native coronary artery without angina pectoris (principal); I10 Essential (primary) hypertension
CPT/HCPCS: 93010; 99204

== ENCOUNTER → 2024-03-06 09:42 | Outpatient (BNVA) | payer MEDICARE, MEDICAID, SELFPAY | PROVIDERS: PCP Hospitalist; Visit Provider Internal Medicine Cardiovascular Disease | DX: I25.10 Atherosclerotic heart disease of native coronary artery without angina pectoris (principal); I10 Essential (primary) hypertension | CPT/HCPCS: 93005; 99202 ==

== ENCOUNTER 2024-03-11 14:50 | Inpatient (IN) | payer MEDICARE, MEDICAID, SELFPAY ==
[2024-03-11] VITALS (8 sets, daily range): BP systolic 78–124; BP diastolic 37–65; PULSE 91–97; RESP 12–18; TEMP 37.1–39.4; O2SAT 92–98; BMI 23.2
--- NOTE | 2024-03-11 | ECG_ITS ---
Test Reason : PRE SYNCOPE Blood Pressure : / mmHG Vent. Rate : 087 BPM Atrial Rate : 087 BPM P-R Int : 162 ms QRS Dur : 094 ms QT Int : 320 ms P-R-T Axes : 067 -83 078 degrees QTc Int : 385 ms Normal sinus rhythm Left axis deviation Inferior infarct (cited on or before 25-SEP-2022) Abnormal ECG When compared with ECG of 25-SEP-2022 08:21, QRS axis Shifted left Referred By: Generic ED Physician Electronically Signed By:ERIS ALEGRIA MD
--- NOTE | ~2024-03-11 | CT_ITS ---
EXAMINATION: CT HEAD WITHOUT CONTRAST CLINICAL INFORMATION: Headache. COMPARISON: None available. TECHNIQUE: Contiguous axial imaging was performed from the skull base to vertex without intravenous administration of contrast. This CT examination was performed using dose optimization techniques as appropriate, variously including the following: *Automated exposure control *Adjustment of mA and/or kV according to patient size (this includes techniques or standardized protocols for targeted exams where dose is matched to indication/reason for exam; i.e. extremities or head) *Use of iterative reconstruction technique DLP: 759 mGy-cm FINDINGS: There is no acute intracranial hemorrhage. There is no evidence of acute/subacute cerebral or cerebellar infarction. There is no midline shift or mass effect. There is no extra-axial fluid collection. The ventricles are normal in size. The orbits are symmetric and within normal limits. The calvarium is intact. The mastoid air cells and visualized paranasal sinuses are clear. CT/CT head/brain wo IV con IMPRESSION: No acute intracranial pathology.
--- NOTE | ~2024-03-11 | CT_ITS ---
EXAMINATION: CT ABDOMEN AND PELVIS WITH CONTRAST CLINICAL INFORMATION: Fever, abdominal discomfort and diarrhea. COMPARISON: None available. TECHNIQUE: Multidetector volumetric images were obtained from the superior aspect of the liver through the pubic symphysis following administration 85 mL of Omnipaque 350 intravenous contrast. Sagittal and coronal reformatted images were obtained on the technologist's workstation. Oral contrast: No This CT examination was performed using dose optimization techniques as appropriate, variously including the following: *Automated exposure control *Adjustment of mA and/or kV according to patient size (this includes techniques or standardized protocols for targeted exams where dose is matched to indication/reason for exam; i.e. extremities or head) *Use of iterative reconstruction technique DLP: 503 mGy-cm FINDINGS: LUNG BASES: Status post median sternotomy. Heart size upper limits of normal. LIVER, GALLBLADDER, AND BILIARY TREE: The liver is normal in size, shape, and attenuation. No focal hepatic lesion. Minimal prominence of central bile ducts. The gallbladder is distended but unremarkable with no evidence of radiopaque gallstones, gallbladder wall thickening, or obvious pericholecystic inflammatory changes. PANCREAS: Unremarkable. SPLEEN: The spleen is mildly enlarged at 12.3 cm. ADRENAL GLANDS: Unremarkable. KIDNEYS AND URETERS: The kidneys are normal in size, shape, and attenuation. No hydronephrosis, hydroureter, or calculi are seen. No perinephric stranding. BLADDER: Unremarkable. GASTROINTESTINAL TRACT: Liquid stool is present throughout the colon. No pneumatosis or colonic wall thickening is seen. The small bowel is unremarkable and there is no evidence of bowel obstruction. A small collection of somewhat loculated fluid is seen in the right lower quadrant measuring 6.7 x 3.9 x 4.2 cm (3:69). A tiny amount of fluid is seen in the lateroconal fascia on the left (3:38). The appendix is not seen with certainty but there is no evidence of appendicitis. ABDOMINAL WALL: No significant hernia is appreciated. LYMPH NODES: Normal. VASCULAR: Calcific atherosclerotic changes are present in the aorta and iliofemoral vessels. There is no evidence of an abdominal aortic aneurysm. 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 There appears to be a 2.5 cm area of discontinuity in the tubing in the lower pelvic wall between the prosthesis and the reservoir (see reid image). Prostate and seminal vesicles are unremarkable. OSSEOUS STRUCTURES: A disc spacer is present at L5-S1. CT/CT abdomen pelvis w IV con IMPRESSION: 1. Liquid stool throughout the colon consistent with diarrhea. 2. A small amount of loculated fluid in the right lower quadrant and a tiny amount of fluid in the left lateral conal fascia. 3. Possible area of discontinuity in the patient's penile prosthesis. Correlate with function. 4. Other incidental findings as described above. Fleischner guidelines were followed.
--- NOTE | ~2024-03-11 | XR_ITS ---
EXAMINATION: XR CHEST CLINICAL INFORMATION: Fever. COMPARISON: None available. TECHNIQUE: Portable AP view of the chest was obtained. FINDINGS: Status post median sternotomy probably for CABG. No significant abnormality is otherwise noted involving the heart, lungs, mediastinum, bony thorax or soft tissues. XR/XR chest 1V IMPRESSION: No acute finding.
--- NOTE | 2024-03-11 15:26 | MHC.EDTECH ---
Pt was cleaned and changed, pt is dry and clean
--- NOTE | 2024-03-11 15:41 | MHC.EDTECH ---
first set of cultures drawn by kimberly salcedo
[2024-03-11 15:43] LABS: MANUAL DIFF FLAG NO
[2024-03-11 15:44] LABS: Basophils Absolute Auto 0.1 X10*3/uL (0.0-0.2); Basophils Percent Auto 0.5 % (0-2); Eosinophils Percent Auto 0.2 % (0-4); Hematocrit 41.8 % (42.0-52.0); Hemoglobin 13.6 g/dl (14.0-18.0); Imm Gran Abs Auto 0.08 X10*3/uL (0.00-0.03); Imm Gran Pct Auto 0.7 % (0.0-0.4); Lymphocytes Absolute Auto 0.5 X10*3/uL (1.2-4.9); Lymphocytes Percent Auto 4.2 % (20-40); Mean Corpuscular HGB Conc 32.5 g/dl (31.0-36.0); Mean Corpuscular Volume 95.2 fL (80.0-98.0); Mean Platelet Volume 10.9 fL (9.4-12.4); Monocytes Absolute Auto 0.5 X10*3/uL (0.1-1.2); Monocytes Percent Auto 4.8 % (2-11); Neutrophils Absolute Auto 9.9 x10*3/uL (2.0-8.3); Neutrophils Percent Auto 89.6 % (45-73); Platelet Count 193 X10*3/uL (160-400); Red Blood Count 4.39 X10*6/uL (4.60-5.80); Red Cell Distribution Width 13.6 % (11.0-16.0)
--- NOTE | 2024-03-11 15:48 | ED_ITS ---
HPI - General Adult General Chief complaint: Abdominal Pain Stated complaint: N/V,ABD CRAMPING,CP,WEAK W/SYNCOPE,NO FALL PER EMS Time Seen by Provider: 03/11/24 15:35 Source: patient and EMS Mode of arrival: EMS Limitations: no limitations History of Present Illness HPI narrative: 68-year-old male with past medical history significant for CAD, s/p quadruple bypass coronary artery graft, carotid artery blockage in process of seeing vascular surgery for carotid endarterectomy. Patient just finished his appointment with his vascular surgeon when he started to have sudden onset of shivering, abdominal upset followed by nonbloody watery diarrhea and nausea with 1 time vomiting, abdominal upset felt better after the diarrhea and vomiting, no sick contacts, no history of eating bad food, no recent travel, patient now is complaining of generalized joint pain with headache, found to have a fever in the emergency department. Related Data Home Medications ?Medication ?Instructions ?Recorded ?Confirmed blood sugar diagnostic (FreeStyle #10 ea 06/13/22 Lite Strips) blood-glucose meter (FreeStyle #1 ea 06/13/22 Lite Meter kit) cholecalciferol (vitamin D3) 25 25 mcg PO DAILY 06/13/22 03/11/24 mcg (1,000 unit) tablet cyanocobalamin (vitamin B-12) 1,000 mcg PO DAILY 06/13/22 03/11/24 1,000 mcg tablet,extended release empagliflozin 25 mg tablet 25 mg PO DAILY 06/13/22 03/11/24 (Jardiance) lancets 28 gauge (FreeStyle #100 ea 06/13/22 Lancets) metformin 1,000 mg tablet 1,000 mg PO BIDWM 06/13/22 03/11/24 sulfasalazine 500 mg tablet 1 tab PO BID 08/23/22 03/11/24 aspirin 81 mg tablet,delayed 81 mg PO DAILY 03/06/24 03/11/24 release atorvastatin 40 mg tablet 80 mg PO DAILY 03/06/24 03/11/24 duloxetine 60 mg capsule,delayed 60 mg PO DAILY 03/06/24 03/11/24 release zolpidem 10 mg tablet 10 mg PO BEDTIME PRN Sleep 03/06/24 03/11/24 adalimumab 40 mg/0.4 mL 40 mg subcut Q2W 03/11/24 03/11/24 subcutaneous pen kit (Humira(CF) Pen) betamethasone, augmented 0.05 % 1 appl topical BID PRN Rash 03/11/24 03/11/24 topical ointment dulaglutide 4.5 mg/0.5 mL 4.5 mg subcut TU@0900 03/11/24 03/11/24 subcutaneous pen injector (Trulicity) folic acid 1 mg tablet 1 mg PO DAILY 03/11/24 03/11/24 insulin glargine 100 unit/mL (3 10 unit subcut DAILY 03/11/24 03/11/24 mL) subcutaneous pen (Lantus Solostar U-100 Insulin) methotrexate sodium 2.5 mg tablet 10 mg PO TH@0900 03/11/24 03/11/24 Allergies Allergy/AdvReac Type Severity Reaction Status Date / Time No Known Allergies Allergy Verified 03/11/24 15:21 [No Known Allergies*] Review of Systems 2 Review of Systems: All other systems are reviewed and are negative Constitutional: Reports as per HPI and Reports no additional constitutional complaints Eyes: Reports as per HPI and Reports no additional eye complaints Reports system reviewed and no additional complaints, except as documented Cardiovascular: Reports as per HPI and Reports no additional cardiovascular complaints Respiratory: Reports as per HPI and Reports no additional respiratory complaints Gastrointestinal: Reports as per HPI and Reports no additional gastrointestinal complaints Genitourinary: Reports no additional female genitourinary complaints Musculoskeletal: Reports no additional musculoskeletal complaints Skin/Breast: Reports system reviewed and no additional complaints, except as docu Psychiatric: Reports no additional psychiatric complaints Endocrine: Reports no additional endocrine complaints Hematologic/Lymphatic: Reports no additional hematologic/lymphatic complaints Allergic/Immunologic: Reports no additional allergic/immunologic complaints Reports system reviewed and no additional complaints, except as documented and Reports Abnormal speech present [facility] Past Medical History Medical History Elevated cholesterol BPH (benign prostatic hyperplasia) Osteoporosis Anxiety and depression CAD (coronary artery disease) HTN (hypertension) Erectile dysfunction Low back pain Diabetes mellitus Surgical History Hx of appendectomy History of ankle surgery H/O colonoscopy Hx of arthroscopic knee surgery Hx of CABG History of back surgery History of penile implant Social History Social History Household Members: Family Patient Tobacco Use Status: Former Tobacco user Quit Date: 2019 Tobacco use type: Cigarette service: No Physical Exam ED Vital Signs: Vital Signs - 24 hr 03/11/24 15:18 03/11/24 16:29 03/11/24 18:52 Temperature 103 F H 102 F H 101.6 F H Pulse Rate 92 91 92 Respiratory Rate 18 12 16 Blood Pressure 117/59 L 121/53 L 96/42 L Pulse Oximetry 97 97 95 Oxygen Delivery Method Room Air Room Air Room Air 03/11/24 20:04 03/11/24 20:10 03/11/24 20:57 Temperature 99.3 F Pulse Rate 94 97 91 Respiratory Rate 16 16 13 Blood Pressure 78/37 L 91/45 L 91/47 L Pulse Oximetry 92 94 98 Oxygen Delivery Method Room Air Room Air Room Air BMI result Body Mass Index 23.2 Vital signs have been reviewed and appear to be correct. Blood pressure elevated. Heart rate normal. Respiratory rate normal. Temperature Febrile, Oxygen saturation normal. Appearance: Alert. Oriented X3. No acute distress. Head: Normal external exam. Normocephalic. Atraumatic. No [place] signs noted. No raccoon eyes noted Eyes: PERRLA. EOMI. Conjunctiva and sclera normal. Eyelids normal. ENT: TM's Normal. Pharynx normal. Uvula midline. Moist mucous membranes. No trismus noted. No drooling noted. No muffled voice noted. Neck: Normal inspection. Neck supple. FROM. No adenopathy. Thyroid Normal. No meningeal signs. No neck mass noted. CVS: Normal heart rate and rhythm. Heart sound normal. No murmurs noted. Pulses normal throughout. Respiratory: No respiratory distress. Painless inspiration. Breath sounds normal. No wheezes/rales/rhonchi noted. Chest nontender. No accessory muscle usage noted or decreased air movement noted. Abdomen: Soft and nontender. Bowel sounds normal in all 4 quadrants. No distention noted. No organomegaly noted. No visible injury noted. Back: No CVA tenderness. Full range of motion noted. Skin: Skin warm and dry. Normal skin color. Normal skin turgor. No rashes/lesions/lacerations noted. Extremities: No lower extremity edema. Extremities exhibit normal range of motion. Extremities nontender. Neuro: Oriented X 3. Cranial nerve exam: II-XII are grossly intact No motor deficit. No sensory deficit. Reflexes normal. Course Reevaluation(s) Reevaluation #1: patient with his family at the bedside reported that the patient did not eat or drink all day today, initially patient came in with fever 103 now the fever has improved, blood pressure is running at the low with improvement with IV fluids. sepsis workup and PE is nonrevealing for source of infection, patient will need overnight observation admission to monitor blood pressure and vital signs. Patient has no severe sepsis or septic shock. Lactic acidosis improved with IV fluids. Time: 21:07 Medications Administered Generic Name Dose Route Start Last Admin Trade Name Freq PRN Reason Stop Dose Admin Acetaminophen 650 mg 03/12/24 11:31 03/12/24 23:40 Acetaminophen 325 Mg Tablet PO 650 mg Q4H PRN Administration Fever, headache, mild pain Aspirin 81 mg 03/12/24 09:00 03/13/24 10:17 Aspirin Enteric Coated 81 Mg Tablet. PO 81 mg DAILY LG Administration Atorvastatin Calcium 80 mg 03/12/24 09:00 03/13/24 10:17 Atorvastatin Calcium 80 Mg Tablet PO 80 mg DAILY LG Administration Cyanocobalamin 1,000 mcg 03/12/24 09:00 03/13/24 10:18 Cyanocobalamin (Vitamin B-12) 1,000 Mcg Tablet PO 1,000 mcg DAILY LG Administration Duloxetine HCl 60 mg 03/12/24 09:00 03/13/24 10:17 Duloxetine Hcl 60 Mg Capsule. PO 60 mg DAILY LG Administration Empagliflozin 25 mg 03/12/24 09:00 03/13/24 10:17 Empagliflozin 25 Mg Tablet PO 25 mg DAILY LG Administration Enoxaparin Sodium 40 mg 03/12/24 14:00 03/12/24 16:57 Enoxaparin Sodium 40 Mg/0.4 Ml Syringe SUBCUT 40 mg Q24H LG Administration Folic Acid 1 mg 03/12/24 09:00 03/13/24 10:18 Folic Acid 1 Mg Tablet PO 1 mg DAILY LG Administration Lactated Ringer's 1,000 mls @ 125 mls/hr 03/11/24 22:30 03/13/24 06:49 Lr IVCONT 125 mls/hr .Q8H LG Administration Levofloxacin 500 mg in 100 mls @ 100 mls/hr 03/12/24 17:15 03/12/24 19:11 Levaquin IV Infused Q24H [facility] Infusion Insulin Glargine 10 unit 03/12/24 09:00 03/13/24 10:19 Insulin Glargine,Hum.Rec.Anlog 100 Unit/Ml 10 Ml Vial SUBCUT 10 unit DAILY LG Administration Insulin Human Lispro 0 unit 03/12/24 07:30 03/13/24 09:40 Insulin Lispro 100 Unit/Ml 3 Ml Vial SUBCUT Not Given QIDACHS [facility] Protocol Methotrexate 10 mg 03/13/24 09:00 03/13/24 11:32 Methotrexate Sodium 2.5 Mg Tablet PO Not Given TH@0900 [facility] Pantoprazole Sodium 40 mg 03/12/24 09:00 03/13/24 10:26 Pantoprazole Sodium 40 Mg/10 Ml Vial IVPUSH 40 mg DAILY LG Administration Sodium Chloride 3 ml 03/12/24 00:00 03/13/24 10:19 0.9 % Sodium Chloride Flush 3 Ml Syringe IVFLUSH 3 ml QSHIFT [facility] Administration Sulfasalazine 500 mg 03/12/24 09:00 03/13/24 10:18 Sulfasalazine 500 Mg Tablet PO 500 mg BID [facility] Administration Vitamin D 25 mcg 03/12/24 09:00 03/13/24 10:18 Cholecalciferol (Vitamin D3) 25 Mcg Tablet PO 25 mcg DAILY [facility] Administration Discontinued Medications Generic Name Dose Route Start Last Admin Trade Name Freq PRN Reason Stop Dose Admin Acetaminophen 975 mg 03/11/24 15:42 03/11/24 15:53 Acetaminophen 325 Mg Tablet PO 03/11/24 15:43 975 mg ONCE ONE Administration Acetaminophen 650 mg 03/11/24 22:30 03/12/24 09:25 Acetaminophen 325 Mg Tablet PO 650 mg Q6H PRN Administration Fever, headache, mild pain Barium Sulfate 900 ml 03/12/24 12:16 03/12/24 12:16 Barium Sulfate Oral (Lord) 450 Ml Oral.Susp PO 03/12/24 12:17 900 ml ONCE ONE Administration Sodium Chloride 1,000 mls @ 999 mls/hr 03/11/24 17:26 03/11/24 18:45 Ns IV 03/11/24 18:26 Infused .Q1H1M ONE Infusion Sodium Chloride 1,000 mls @ 999 mls/hr 03/11/24 21:30 03/11/24 22:34 Ns IV 03/11/24 22:30 Infused .Q1H1M LG Infusion Lactated Ringer's 1,000 mls @ 999 mls/hr 03/11/24 22:15 03/11/24 23:47 Lr IV 03/11/24 23:15 Infused .Q1H1M LG Infusion Iohexol 100 ml 03/12/24 12:38 03/12/24 12:38 Iohexol 350 Mg/Ml 100 Ml Infus..Btl IV 03/12/24 12:39 85 ml ONCE ONE Administration Loperamide HCl 4 mg 03/11/24 23:56 03/12/24 00:50 Loperamide Hcl 2 Mg Capsule PO 03/11/24 23:57 4 mg ONCE ONE Administration Potassium Chloride 40 meq 03/13/24 07:49 03/13/24 10:26 Potassium Chloride Packet 20 Meq Packet PO 03/13/24 07:50 40 meq ONCE ONE Administration Medical Decision Making Differential Diagnosis Differential Diagnoses: The differential diagnosis associated with the presentation includes ( Hypotension, dehydration, sepsis, UTI, pneumonia, pneumothorax, pleural effusion, sinusitis, intracranial bleed, viral infection, cellulitis, electrolyte derangement, severe anemia.) Admission/Observation Consideration of admission/observation: Escalation of care including admission/observation considered Consult Healthcare Provider Management of the patient was discussed with: Hospitalist ( Dr. Gregg) Lab Data MDM Lab Attestation statement: I reviewed the patient's lab results. 03/13/24 03:44 03/13/24 03:44 Labs: Lab Results 03/11/24 03/11/24 03/11/24 Range/Units 15:38 16:10 16:18 WBC 11.0 H (4.8-10.8) X10*3/uL RBC 4.39 L (4.60-5.80) X10*6/uL Hgb 13.6 L (14.0-18.0) g/dl Hct 41.8 L (42.0-52.0) % MCV 95.2 (80.0-98.0) fL MCH 31.0 (27.0-33.0) pg MCHC 32.5 (31.0-36.0) g/dl RDW 13.6 (11.0-16.0) % Plt Count 193 (160-400) X10*3/uL MPV 10.9 (9.4-12.4) fL Immature Gran % (Auto) 0.7 H (0.0-0.4) % Neut % (Auto) 89.6 H (45-73) % Lymph % (Auto) 4.2 L (20-40) % [place] % (Auto) 4.8 (2-11) % Eos % (Auto) 0.2 (0-4) % Baso % (Auto) 0.5 (0-2) % Lymph # (Auto) 0.5 L (1.2-4.9) X10*3/uL [place] # (Auto) 0.5 (0.1-1.2) X10*3/uL Eos # (Auto) 0.0 (0.0-0.4) X10*3/uL Baso # (Auto) 0.1 (0.0-0.2) X10*3/uL Abs Immat Gran (auto) 0.08 H (0.00-0.03) X10*3/uL Absolute Neuts (auto) 9.9 H (2.0-8.3) x10*3/uL Absolute Nucleated RBC 0.000 (0.0-0.012) X10*3/uL Nucleated RBC % (auto) 0.0 (0.0-0.2) /100WBC Sodium 135 (135-145) mmol/L Potassium 4.3 (3.3-5.1) mmol/L Chloride 106 (96-108) mmol/L Carbon Dioxide 19 L (22-29) mmol/L Anion Gap 14 (12-20) BUN 22 H (9-16) mg/dL Creatinine 0.96 (0.5-1.4) mg/dL Estim Creat Clear Calc 75.6 Estimated GFR > 60 Random Glucose 103 (60-115) mg/dL Lactic Acid 2.2 H* (0.5-2.0) mmol/L Lactic Acid F/U @ 2Hr (0.5-2.0) mmol/L Calcium 9.3 (8.4-10.2) mg/dL Total Bilirubin 0.5 (0.0-1.0) mg/dL AST 33 (5-37) U/L ALT 21 (0-40) U/L Alkaline Phosphatase 69 (39-117) U/L Total Protein 6.9 (6.5-8.0) g/dL Albumin 3.9 (3.5-5.0) g/dL Urine Color Urine Appearance Urine pH (5.0-9.0) Ur Specific [place] (1.005-1.025) Urine Protein (Neg-Trace) mg/dL Urine Glucose (UA) (Negative) mg/dL Urine Ketones (Negative) mg/dL Urine Blood (Negative) Urine Nitrite (Negative) Ur Leukocyte Esterase (Negative) Urine RBC (0-2) /HPF Urine WBC (0-5) /HPF Ur Squamous Epith Cells (0-2) /HPF Urine Bacteria (None Seen) Hyaline Casts (0-2) /LPF Influenza Type A (PCR) NEGATIVE (Negative) Influenza Type B (PCR) NEGATIVE (Negative) RSV RNA Qual (PCR) NEGATIVE (Negative) SARS-CoV-2 RNA (RT-PCR) NEGATIVE (Negative) 03/11/24 03/11/24 Range/Units 18:45 20:49 WBC (4.8-10.8) X10*3/uL RBC (4.60-5.80) X10*6/uL Hgb (14.0-18.0) g/dl Hct (42.0-52.0) % MCV (80.0-98.0) fL MCH (27.0-33.0) pg MCHC (31.0-36.0) g/dl RDW (11.0-16.0) % Plt Count (160-400) X10*3/uL MPV (9.4-12.4) fL Immature Gran % (Auto) (0.0-0.4) % Neut % (Auto) (45-73) % Lymph % (Auto) (20-40) % [place] % (Auto) (2-11) % Eos % (Auto) (0-4) % Baso % (Auto) (0-2) % Lymph # (Auto) (1.2-4.9) X10*3/uL [place] # (Auto) (0.1-1.2) X10*3/uL Eos # (Auto) (0.0-0.4) X10*3/uL Baso # (Auto) (0.0-0.2) X10*3/uL Abs Immat Gran (auto) (0.00-0.03) X10*3/uL Absolute Neuts (auto) (2.0-8.3) x10*3/uL Absolute Nucleated RBC (0.0-0.012) X10*3/uL Nucleated RBC % (auto) (0.0-0.2) /100WBC Sodium (135-145) mmol/L Potassium (3.3-5.1) mmol/L Chloride (96-108) mmol/L Carbon Dioxide (22-29) mmol/L Anion Gap (12-20) BUN (9-16) mg/dL Creatinine (0.5-1.4) mg/dL Estim Creat Clear Calc Estimated GFR Random Glucose (60-115) mg/dL Lactic Acid (0.5-2.0) mmol/L Lactic Acid F/U @ 2Hr 0.9 (0.5-2.0) mmol/L Calcium (8.4-10.2) mg/dL Total Bilirubin (0.0-1.0) mg/dL AST (5-37) U/L ALT (0-40) U/L Alkaline Phosphatase (39-117) U/L Total Protein (6.5-8.0) g/dL Albumin (3.5-5.0) g/dL Urine Color Dark Yellow Urine Appearance Clear Urine pH 5.5 (5.0-9.0) Ur Specific [place] >= 1.030 H (1.005-1.025) Urine Protein 30 (1+) H (Neg-Trace) mg/dL Urine Glucose (UA) >=1000 H (Negative) mg/dL Urine Ketones 15 (Negative) mg/dL Urine Blood Negative (Negative) Urine Nitrite Negative (Negative) Ur Leukocyte Esterase Negative (Negative) Urine RBC 0-2 (0-2) /HPF Urine WBC 0-5 (0-5) /HPF Ur Squamous Epith Cells 0-2 (0-2) /HPF Urine Bacteria None Seen (None Seen) Hyaline Casts 3-5 (0-2) /LPF Influenza Type A (PCR) (Negative) Influenza Type B (PCR) (Negative) RSV RNA Qual (PCR) (Negative) SARS-CoV-2 RNA (RT-PCR) (Negative) Independent Interpretation I performed an independent interpretation of an: Plain X-Ray ( chest: No acute intrathoracic pathology.) and CT Scan ( Head: No acute intracranial pathology.) Radiology Impression Discussion of test interpretation with radiology: I have reviewed the radiologist's reading. Discharge Plan Discharge Clinical Impression: Acute febrile illness Hypotension Qualifiers: Hypotension type: hypotension due to hypovolemia Qualified Code(s): E86.1 - Hypovolemia Patient Disposition: Admitted As Inpatient Interventions: Admission Worksheet (ED) Last Done: 03/13/24 08:33 Discharge Date/Time: 03/13/24 09:21
[2024-03-11] MEDS: Acetaminophen 325 MG TABLET 975 MG PO (15:53)
--- OUTSIDE RECORDS SUMMARY | 2024-03-11 15:56 | XMS_ITS | Continuity of Care Document ---
Author Organization [facility] Address [address] [place] [id number]- Care Team Providers Care Hand Cloth Examiner Name Role Phone Ko Kenyon MD [facility] Care Phys[id number] Date[facility] - 12/20/23 [facility] [address] [place] [id number]- Attending Physician: Bj Jerez DO Allergies, Adverse Reactions, Alerts No Known Allergies Medications Artificial Tears 1.4% Eyes, Both, Every 4 hours, PRN Other, Dryness., 0 Refills, Maintenance, 05/28/20 12:34:00 EDT, Ophth Solution Start Date: 05/28/20 Status: Ordered Aspirin = 81 mg, By Mouth, Daily, 0 Refills, Maintenance Start Date: 04/06/11 Status: Ordered atorvastatin 80 mg oral tablet 1 tablet = 80 mg, By Mouth, Daily, # 30 tablet, 11 Refills, Maintenance, 08/23/22 13:43:00 EDT, Tablet, [facility], 168, cm, 08/23/22 13:18:00 EDT, Height Start Date: 08/23/22 Status: Ordered clopidogrel 75 mg oral tablet 75 mg, 1, tablet, By Mouth, Daily, # 30 tablet, Refills 0, Tot. Refills 0, Maintenance, 05/28/20 12:51:00 EDT, Route to Pharmacy Electronically, [facility] #[id number], 168, cm, 05/28/20 11:19:00 EDT, Height, 91.1, kg, 05/21/20 8:37:00 EDT, Dry W... Start Date: 05/28/20 Stop Date: 06/27/20 Status: Ordered docusate sodium 100 mg oral capsule 100 mg, 1, capsule, By Mouth, 2 times a day, over the counter hold if +Diarrhea, # 60 capsule, Refills 0, Tot. Refills 0, Maintenance, 05/28/20 12:50:00 EDT, Route to Pharmacy Electronically, [facility] #[id number], 168, cm, 05/28/20 11:19:00 ED... Start Date: 05/28/20 Stop Date: 06/27/20 Status: Ordered GlipiZIDE XL 10 mg oral tablet, extended release 1 tablet = 10 mg, By Mouth, Daily, # 30 tablet, 0 Refills, Maintenance, 10/07/15 12:50:05, ER Tablet Start Date: 10/07/15 Status: Ordered isosorbide mononitrate 30 mg oral tablet, extended release 30 mg, 1, tablet, By Mouth, Daily in AM, # 30 tablet, Refills 5, Tot. Refills 5, Maintenance, 05/28/20 14:07:00 EDT, Route to Pharmacy Electronically, [facility] #[id number], 168, cm, 05/28/20 11:19:00 EDT, Height, 91.1, kg, 05/21/20 8:37:00 EDT,... Start Date: 05/28/20 Stop Date: 11/24/20 Status: Ordered lisinopril 5 mg oral tablet 5 mg, 1, tablet, By Mouth, Daily, # 30 tablet, Refills 11, Tot. Refills 11, Maintenance, 08/23/22 13:47:00 EDT, Route to Pharmacy Electronically, [id number], Partial fill upon patient request if the prescription is for a schedule II opio... Start Date: 08/23/22 Status: Ordered metformin 1000 mg oral tablet 1 tablet, By Mouth, 2 times a day, # 180 tablet, 0 Refills, Maintenance, Tablet Start Date: 04/06/11 Status: Ordered pantoprazole 40 mg oral delayed release tablet 1 tablet = 40 mg, By Mouth, Daily, # 30 tablet, 0 Refills, Maintenance, 05/28/20 12:50:00 EDT, EC Tablet, 168, cm, 05/28/20 11:19:00 EDT, Height, 91.1, kg, 05/21/20 8:37:00 EDT, Dry Weight Start Date: 05/28/20 Stop Date: 06/27/20 Status: Ordered Silvadene 50 Gm Topical 1 applicator = 50 Gm, Topically, 2 times a day, 0 Refills, Maintenance, Cream Start Date: 05/28/20 Status: Ordered Toprol XL 25 mg oral tablet, extended release 25 mg, 1, tablet, By Mouth, Daily in AM, # 30 tablet, Refills 0, Tot. Refills 0, Maintenance, 05/28/20 12:50:00 EDT, Route to Pharmacy Electronically, [facility] #[id number], 168, cm, 05/28/20 11:19:00 EDT, Height, 91.1, kg, 05/21/20 8:37:00 EDT,... Start Date: 05/28/20 Stop Date: 06/27/20 Status: Ordered Trulicity Pen 0.75 mg/0.5 mL subcutaneous solution 0.5 mL = 0.75 mg, Subcutaneous Injection, Every week, rotate injection sites, # 2 mL, 0 Refills, Maintenance, 05/17/20 14:03:00 EDT, Solution Start Date: 05/17/20 Status: Ordered Vitamin C 500 mg oral tablet 1 tablet = 500 mg, By Mouth, Daily, # 30 tablet, 0 Refills, Maintenance, 05/05/20 10:19:00 EDT, Tablet Start Date: 05/05/20 Status: Ordered Vitamin D3 = 1,000 International_Units, By Mouth, Daily, 0 Refills, Maintenance Start Date: 04/06/11 Status: Ordered zinc sulfate 220 mg oral capsule 220 mg, 1, capsule, By Mouth, Daily, # 100 capsule, Refills 0, Maintenance, 05/05/20 10:19:00 EDT Start Date: 05/05/20 Status: Ordered Problem List Condition Confirmation Course Effective Dates Status H ealth Status Informant Ankle pain Confirmed Active Anxiety Confirmed Active Depressive Disorder, Not Elsewhere Classified Confirmed Active Diabetes mellitus - adult onset Confirmed Active Ex-cigarette smoker, 5-6 cigarettes qd X20+years, quit 01/2020 Confirmed Active GERD (gastroesophageal reflux disease) Confirmed Active History of surgery 1 Confirmed Active Lumbar disc disease with radiculopathy Confirmed Active Other Pain Disorders Related to Psychological Factors Confirmed Active Personality disorder NOS Confirmed Active Posttraumatic Stress Disorder Confirmed Active Swelling of ankle Confirmed Active Well male [...] History Type Response Smoking Status Former smoker; Other : quit 2 months ago; entered on: 08/26/18 Sex Patient Care team information Care Team Personnel Name: Lety Banda RN Position: S RN Supv Member Role: Primary Care Nurse Name: Sabrina Carmona RN Position: S RN Member Role: Primary Care Nurse Name: Tram Mott RN Position: S RN Member Role: Primary Care Nurse Name: Ko Kenyon MD Position: S Physician - Primary Care Member Role: PCP Address: Address: [address] [place] [address] Name: Puja Montalvo RN Position: S RN Member Role: Primary Care Nurse Name: Yue Schwartz RN Position: S RN Member Role: Primary Care Nurse Name: Lula Griffin RN Position: S RN Member Role: Primary Care Nurse Care Team Related Persons Name: LEONARDEMERITACHAPISEMILY Address: home [address] [place] [address] Name: KATIE HUMMEL Address: home [address] [place] [id number]
--- OUTSIDE RECORDS SUMMARY | 2024-03-11 15:56 | XMS_ITS | Continuity of Care Document ---
Author Organization [facility] Address [address] [place] [address]- Care Team Providers Care Nuclear Weapons Specialist Name Role Phone Ko Kenyon MD Primary Care Physician [phone] Encounter [facility] Date(s): 10/10/23 - 12/22/23 [facility] [address] [place], [place] [address] Attending Physician: Bj Jerez DO Admitting Physician: [...] 05/28/20 12:51:00 EDT, Route to Pharmacy Electronically, [facility] #[id number], 168, cm, 05/28/20 11:19:00 EDT, Height, 91.1, kg, 05/21/20 8:37:00 EDT, Dry W... Start Date: 05/28/20 Stop Date: 06/27/20 Status: Ordered docusate sodium 100 mg oral capsule 100 mg, 1, capsule, By Mouth, 2 times a day, over the counter hold if +Diarrhea, # 60 capsule, Refills 0, Tot. Refills 0, Maintenance, 05/28/20 12:50:00 EDT, Route to Pharmacy Electronically, [facility] #[id number], 168, cm, 05/28/20 11:19:00 ED... Start Date: [...] 05/28/20 14:07:00 EDT, Route to Pharmacy Electronically, [facility] #[id number], 168, cm, 05/28/20 11:19:00 EDT, Height, 91.1, [...] 05/28/20 12:50:00 EDT, Route to Pharmacy Electronically, [facility] #[id number], 168, cm, 05/28/20 11:19:00 EDT, Height, 91.1, [...] Primary Care Member Role: PCP Address: Address: [address] [place] [address] Name: Puja Montalvo RN Position: S RN Member Role: Primary Care Nurse Name: Yue Schwartz RN Position: S RN Member Role: Primary Care Nurse Name: Lula Griffin RN Position: S RN Member Role: Primary Care Nurse Care Team Related Persons Name: EMILY HUMMEL Address: home [address] [place] [id number] Name: KATIE HUMMEL Address: home [address] [place] [id number]
--- OUTSIDE RECORDS SUMMARY | 2024-03-11 15:56 | XMS_ITS | Continuity of Care Document ---
Author Organization [facility] Address [address] [place] [address]- Care Team Providers Care Exercise Manager Name Role Phone Chantale BEAL, Ko Keyes Primary Care Physician [phone] [place] [facility] [place]03[place]23 - 11/02/23 [facility] [address] [place] [id number] Allergies, Adverse Reactions, Alerts No [...] 05/28/20 12:51:00 EDT, Route to Pharmacy Electronically, [facility] #[id number], 168, cm, 05/28/20 11:19:00 EDT, Height, 91.1, kg, 05/21/20 8:37:00 EDT, Dry W... Start Date: 05/28/20 Stop Date: 06/27/20 Status: Ordered docusate sodium 100 mg oral capsule 100 mg, 1, capsule, By Mouth, 2 times a day, over the counter hold if +Diarrhea, # 60 capsule, Refills 0, Tot. Refills 0, Maintenance, 05/28/20 12:50:00 EDT, Route to Pharmacy Electronically, [facility] #[id number], 168, cm, 05/28/20 11:19:00 ED... Start Date: [...] 05/28/20 14:07:00 EDT, Route to Pharmacy Electronically, [facility] #[id number], 168, cm, 05/28/20 11:19:00 EDT, Height, 91.1, [...] 05/28/20 12:50:00 EDT, Route to Pharmacy Electronically, [facility] #[id number], 168, cm, 05/28/20 11:19:00 EDT, Height, 91.1, [...] Team Personnel Name: Lety Banda RN Position: [facility] RN Supv Member Role: Primary Care Nurse Name: Sabrina Carmona RN Position: [facility] RN Member Role: Primary Care Nurse Name: Tram Mott RN Position: S RN Member Role: Primary Care Nurse Name: Ko Kenyon MD Position: [facility] Physician - Primary Care Member Role: PCP Address: Address: [address] [place] [address] Name: Puja Montalvo RN Position: S RN Member Role: Primary Care Nurse Name: Yue Schwartz RN Position: [facility] RN Member Role: Primary Care Nurse Name: Lula Griffin RN Position: [facility] SELINA Nurse Member Role: Primary Care Nurse Care Team Related Persons Name: EMILY HUMMEL Address: [address] [address] Name: KATIE HUMMEL Address: home [address] [place] [address]
--- OUTSIDE RECORDS SUMMARY | 2024-03-11 15:56 | XMS_ITS | Continuity of Care Document ---
Author Organization [facility] ter Address [address] [place] [address]- Care Team Providers Care Auto Former Machine Operator Name Role Phone Ko Kenyon MD Primary Care Physician [phone] [id number] Date(s[facility] 10/10/23 - 10/11/[address] [address]- Encounter Diagnosis Leg wound, left(Final) - 10/11/23 Type 2 diabetes mellitus(Final) - 10/11/23 Discharge Disposition: A-D/C Home Attending Physician: Bailee Reyna MD Admitting Physician: Bailee Reyna MD Referring Physician: Not on Staff, Referring MD Allergies, Adverse Reactions, Alerts No Known Allergies [...] EDT, Height Start Date: 08/23/22 Status: Ordered cephalexin monohydrate 500 mg oral capsule 1 capsule = 500 mg, By Mouth, 4 times a day, for 7 days, # 28 capsule, 0 Refills, Acute 10/18/23 12:10:00 EST, 10/11/23 12:10:00 EST, Capsule, [id number], Partial fill upon patient request ifthe prescription is for a schedule II opioid drug.,... Start Date: 10/11/23 Stop Date: 10/18/23 Status: Ordered clopidogrel 75 mg oral tablet 75 mg, 1, tablet, By Mouth, Daily, # 30 tablet, Refills 0, Tot. Refills 0, Maintenance, 05/28/20 12:51:00 EDT, Route to Pharmacy Electronically, [facility] #[id number], 168, cm, 05/28/20 11:19:00 EDT, Height, 91.1, kg, 05/21/20 8:37:00 EDT, Dry W... Start Date: 05/28/20 Stop Date: 06/27/20 Status: Ordered docusate sodium 100 mg oral capsule 100 mg, 1, capsule, By Mouth, 2 times a day, over the counter hold if +Diarrhea, # 60 capsule, Refills 0, Tot. Refills 0, Maintenance, 05/28/20 12:50:00 EDT, Route to Pharmacy Electronically, [facility] #[id number], 168, cm, 05/28/20 11:19:00 ED... Start Date: [...] 05/28/20 14:07:00 EDT, Route to Pharmacy Electronically, [facility] #[id number], 168, cm, 05/28/20 11:19:00 EDT, Height, 91.1, [...] 05/28/20 12:50:00 EDT, Route to Pharmacy Electronically, [facility] #[id number], 168, cm, 05/28/20 11:19:00 EDT, Height, 91.1, [...] Danek LT titanium cages. 4. InFUSE BMP. Vital Signs Most recent to oldest [Reference Range]: 1 2 3 Height 175 cm (10/11/23 12:15 PM) 175 cm (10/10/23 11:23 PM) 175 cm (10/10/23 9:39 PM) Weight 79.5 kg (10/11/23 12:15 PM) 79.5 kg (10/10/23 11:23 PM) 79.5 kg (10/10/23 9:39 PM) Oxygen Saturation [94-100 %] 99 % (10/11/23 12:15 PM) 100 % (10/11/23 9:33 AM) 99 % (10/11/23 5:08 AM) Pulse Rate [55-90 bpm] 72 bpm (10/11/23 12:15 PM) 66 bpm (10/11/23 9:33 AM) 61 bpm (10/11/23 5:08 AM) Body Mass Index [18.5-24.99 kg/m2] 25.96 kg/m2 *H* (10/11/23 12:15 PM) 25.96 kg/m2 *H* (10/10/23 9:39 PM) Blood Pressure [90-138/55-84 mm Hg] 152/85mm Hg *H* (10/11/23 12:15 PM) 160/74mm Hg *H* (10/11/23 9:33 AM) 162/87mm Hg *H* (10/11/23 5:08 AM) Respiratory Rate [16-30 br/min] 16 br/min (10/11/23 12:15 PM) 18 br/min (10/11/23 9:33 AM) 18 br/min (10/10/23 9:39 PM) Temperature [96.8-100.4 DegF] 98 DegF (10/11/23 12:15 PM) 97.9 DegF (10/11/23 9:33 AM) 98.7 DegF (10/11/23 5:08 AM) Mode of Delivery (Oxygen) Room air (10/11/23 12:15 PM) Room air (10/11/23 9:33 AM) Room air (10/10/23 9:39 PM) Blood pressure sites Arm, right (10/11/23 9:33 AM) Arm, left (10/11/23 5:08 AM) Arm, left (10/10/23 9:39 PM) Temperature Route Oral (10/11/23 12:15 PM) Oral (10/11/23 9:33 AM) Oral (10/11/23 5:08 AM) Dry Weight 79.5 kg (10/11/23 12:15 PM) 79.5 kg (10/10/23 11:23 PM) 79.5 kg (10/10/23 9:39 PM) Weight Obtained Via Standing scale (10/10/23 9:39 PM) Dry Weight Obtained Via Standing scale (10/10/23 9:39 PM) Social History Social History Type Response Smoking Status Former smoker; Other : quit 2 months ago; entered on: 08/26/18 Sex Patient Care team information Care Team Personnel Name: Lety Banda RN Position: [facility] RN Supv Member Role: Primary Care Nurse Name: Sabrina Carmona RN Position: S RN Member Role: Primary Care Nurse Name: Tram Mott RN Position: [facility] RN Member Role: Primary Care Nurse Name: Chantale BEAL, Ko Keyes Position: [facility] Physician - Primary Care Member Role: PCP Address: Address: [address] [place] [address]- [place] Name: Puja Montalvo RN Position: [facility] RN Member Role: Primary Care Nurse Name: Yue Schwartz RN Position: [facility] RN Member Role: Primary Care Nurse Name: Lula Griffin RN Position: [facility] AMB Nurse Member Role: Primary Care Nurse Name: Bailee Duong RN Position: [facility] ED RN W/OE and Tasks Member Role: Patient Care Provider Name: Bailee Reyna MD Position: [facility] ED Medicine MD Member Role: Admitting Physician Address: Address: [address] [place] [address] [place] [address]- Care Team Related Persons Name: EMILY HUMMEL Address: home [address] [place] [address] Name: KATIE HUMMEL Address: home [address] [place] [address]
--- OUTSIDE RECORDS SUMMARY | 2024-03-11 15:56 | XMS_ITS | Continuity of Care Document ---
Author Organization [facility] Address [address] [place] [address]- Care Team Providers Care Cad Librarian Name Role Phone Ko Kenyon MD Primary [id number] - 12/20/23 [facility] [address] [place] [address]- Attending Physician: Andrea Jain Admitting Physician: AdmtrAndrea Referring Physician: Admtr, Ar8 Allergies, Adverse Reactions, Alerts No Known Allergies [...] 05/28/20 12:51:00 EDT, Route to Pharmacy Electronically, [facility] #[id number], 168, cm, 05/28/20 11:19:00 EDT, Height, 91.1, kg, 05/21/20 8:37:00 EDT, Dry W... Start Date: 05/28/20 Stop Date: 06/27/20 Status: Ordered docusate sodium 100 mg oral capsule 100 mg, 1, capsule, By Mouth, 2 times a day, over the counter hold if +Diarrhea, # 60 capsule, Refills 0, Tot. Refills 0, Maintenance, 05/28/20 12:50:00 EDT, Route to Pharmacy Electronically, [facility] #[id number], 168, cm, 05/28/20 11:19:00 ED... Start Date: [...] 05/28/20 14:07:00 EDT, Route to Pharmacy Electronically, [facility] #[id number], 168, cm, 05/28/20 11:19:00 EDT, Height, 91.1, [...] 05/28/20 12:50:00 EDT, Route to Pharmacy Electronically, [facility] #[id number], 168, cm, 05/28/20 11:19:00 EDT, Height, 91.1, [...] Primary Care Member Role: PCP Address: Address: [address] [place] [address] Name: Puja Montalvo RN Position: S RN Member Role: Primary Care Nurse Name: Yue Schwartz RN Position: S RN Member Role: Primary Care Nurse Name: Lula Griffin RN Position: S RN Member Role: Primary Care Nurse Care Team Related Persons Name: ESTEPHANIE EMILY Address: home [address] [place] [address] Name: KATIE HUMMEL Address: home [address] [place] [address]
--- OUTSIDE RECORDS SUMMARY | 2024-03-11 15:57 | XMS_ITS | Continuity of Care Document ---
Author Organization [facility] Address [address] [place] [address]- Care Team Providers Care Life Skills Coordinator Volunteer Name Role Phone Ko Kenyon MD Primary Care Physician [phone] [place] [facility] [place] 10/31/23 - 12/01/23 [facility] [address], [place] [address] Attending Physician: Bj Jerez DO Admitting [...] 05/28/20 12:51:00 EDT, Route to Pharmacy Electronically, [facility] #[id number], 168, cm, 05/28/20 11:19:00 EDT, Height, 91.1, kg, 05/21/20 8:37:00 EDT, Dry W... Start Date: 05/28/20 Stop Date: 06/27/20 Status: Ordered docusate sodium 100 mg oral capsule 100 mg, 1, capsule, By Mouth, 2 times a day, over the counter hold if +Diarrhea, # 60 capsule, Refills 0, Tot. Refills 0, Maintenance, 05/28/20 12:50:00 EDT, Route to Pharmacy Electronically, [facility] #[id number], 168, cm, 05/28/20 11:19:00 ED... Start Date: [...] 05/28/20 14:07:00 EDT, Route to Pharmacy Electronically, [facility] #[id number], 168, cm, 05/28/20 11:19:00 EDT, Height, 91.1, [...] 05/28/20 12:50:00 EDT, Route to Pharmacy Electronically, [facility] #[id number], 168, cm, 05/28/20 11:19:00 EDT, Height, 91.1, [...] Care Nurse Name: Ko Kenyon MD Position: [facility] Physician - Primary Care Member Role: PCP Address: Address: [address] [place] [address] Name: Puja Montalvo RN Position: S RN Member Role: Primary Care Nurse Name: Yue Schwartz RN Position: S RN Member Role: Primary Care Nurse Name: Lula Griffin RN Position: [facility] AMB Nurse Member Role: Primary Care Nurse Care Team Related Persons Name: EMILY HUMMEL Address: home [address] [place] [address] Name: KATIE HUMMEL Address: home [address] [place] [address]
--- OUTSIDE RECORDS SUMMARY | 2024-03-11 15:57 | XMS_ITS | Continuity of Care Document ---
Author Organization [facility] Address [address] [place] [address]- Care Team Providers Care Roller Embosser Name Role Phone Chantale BEAL, Ko Keyes Primary Care Physician [phone] Encounter [facility] [place] Date(s): 10/23/23 - 11/22/23 [facility] Medicine [address] [place] [id number] Allergies, Adverse Reactions, Alerts No Known Allergies [...] 05/28/20 12:51:00 EDT, Route to Pharmacy Electronically, [facility] #[id number], 168, cm, 05/28/20 11:19:00 EDT, Height, 91.1, kg, 05/21/20 8:37:00 EDT, Dry W... Start Date: 05/28/20 Stop Date: 06/27/20 Status: Ordered docusate sodium 100 mg oral capsule 100 mg, 1, capsule, By Mouth, 2 times a day, over the counter hold if +Diarrhea, # 60 capsule, Refills 0, Tot. Refills 0, Maintenance, 05/28/20 12:50:00 EDT, Route to Pharmacy Electronically, [facility] #[id number], 168, cm, 05/28/20 11:19:00 ED... Start Date: [...] 05/28/20 14:07:00 EDT, Route to Pharmacy Electronically, [facility] #[id number], 168, cm, 05/28/20 11:19:00 EDT, Height, 91.1, [...] 05/28/20 12:50:00 EDT, Route to Pharmacy Electronically, [facility] #[id number], 168, cm, 05/28/20 11:19:00 EDT, Height, 91.1, [...] Team Personnel Name: Lety Banda RN Position: [facility] RN Supv Member Role: Primary Care Nurse Name: Sabrina Carmona RN Position: [facility] RN Member Role: Primary Care Nurse Name: Tram Mott RN Position: S RN Member Role: Primary Care Nurse Name: Ko Kenyon MD Position: [facility] Physician - Primary Care Member Role: PCP Address: Address: [address] [place] [address] Name: Puja Montalvo RN Position: S RN Member Role: Primary Care Nurse Name: Yue Schwartz RN Position: [facility] RN Member Role: Primary Care Nurse Name: Lula Griffin RN Position: [facility] SELINA Nurse Member Role: Primary Care Nurse Care Team Related Persons Name: EMILY HUMMEL Address: [address] [address] Name: KATIE HUMMEL Address: home [address] [place] [address]
[2024-03-11 16:01] LABS: Alanine Aminotransferase 21 U/L (0-40); Albumin Level 3.9 g/dL (3.5-5.0); Alkaline Phosphatase 69 U/L (39-117); Anion Gap 14 (12-20); Aspartate Amino Transferase 33 U/L (5-37); Bilirubin Total 0.5 mg/dL (0.0-1.0); Blood Urea Nitrogen 22 mg/dL (9-16); Calcium 9.3 mg/dL (8.4-10.2); Carbon Dioxide 19 mmol/L (22-29); Chloride 106 mmol/L (96-108); Creatinine Clr Calc Pharmacy 75.6; Estimated Glomerular Filt Rate > 60; Glucose Random 103 mg/dL (60-115); Potassium 4.3 mmol/L (3.3-5.1); Sodium 135 mmol/L (135-145); Total Protein 6.9 g/dL (6.5-8.0)
[2024-03-11 16:47] LABS: Lactic Acid 2.2 mmol/L (0.5-2.0)
[2024-03-11 17:23] LABS: Influenza A PCR NEGATIVE (Negative); Influenza B PCR NEGATIVE (Negative); Resp Syncy Virus RNA Qual PCR NEGATIVE (Negative); SARS COV2 PCR INHOUSE NEGATIVE (Negative)
[2024-03-11] MEDS: 0.9 % Sodium Chloride 1,000 ML 999 ML IV ×2 (17:50→21:41)
[2024-03-11 18:14] LABS: Reflex Lactate? Lactic Acid Added
[2024-03-11 19:01] LABS: ~Lactic Acid-LAB USE ONLY 0.9 mmol/L (0.5-2.0)
--- NOTE | 2024-03-11 20:00 | PC.NURSE ---
Pt unable to provide urine sample at this time. Urinal provided.
--- NOTE | 2024-03-11 20:13 | PC.NURSE ---
This nurse made aware of pts bp reading 78/37. Pt aox4 at the bedside. No apparent distress noted. Speech is clear and appropriate. Denies pain at this time. Reports feeling dizzy. BP rechecked 91/45. made aware.
[2024-03-11 20:56] LABS: Appearance Urine Clear; Color Urine Dark Yellow; Glucose Urine UA >=1000 mg/dL (Negative); Leukocyte Esterase Urine Negative (Negative); Nitrite Urine Negative (Negative); PH 5.5 (5.0-9.0); Specific Gravity - Urine >= 1.030 (1.005-1.025); UMIC TRIGGER UACC YES; Urine Blood Negative (Negative); Urine Ketones 15 mg/dL (Negative); Urine Protein 30 (1+) mg/dL (Neg-Trace)
[2024-03-11 21:07] LABS: Bacteria Urine None Seen (None Seen); RBC Urine 0-2 /HPF (0-2); Squamous Epithelial Cell Urine 0-2 /HPF (0-2); WBC Urine 0-5 /HPF (0-5)
--- NOTE | 2024-03-11 22:14 | PHA.MEDREC ---
Pharmacy Consult ? Medication Reconciliation Pharmacy has completed the medication reconciliation Spoke with patient, patients son and in ED. Patient had a list on his phone..
[2024-03-11] MEDS: Lactated Ringers 1,000 ML 999 ML IV (22:46)
--- NOTE | 2024-03-11 23:56 | P.HPHOSP_ITS ---
History of Present Illness Date of Service: 03/11/24 Attending physician on admission: Avinash Kirkpatrick Chief Complaint: Diarrhea Neville Pablo is a 68 years old man with past medical history significant for CAD s/p CABG, BPH and type 2 diabetes mellitus on insulin presents to the emergency department complaining of chills, dizziness and generalized weakness. He also complained of abdominal discomfort and multiple events of nonbloody watery diarrhea. He also has been nauseous and vomited once. He denied any headache, chest pain or shortness on breath. He did not report any acute urinary symptoms. Denied recent travel history or contact with ill people. Abdominal surgery history is remarkable for appendectomy. No recent use of antibiotics. Did not report alcohol abuse, tobacco smoking or illicit drug use. In the ED, he was initially found with fever (max 103). He was found to have hypotension of 78/37. Last blood pressure is 124/65. Blood workup is remarkable for mild leukocytosis, 11.0. There is minimal anemia and platelets are normal. Initial lactic acid was slightly elevated, 2.2, bicarb 19. No significant electrolyte imbalances. Creatinine is 0.96. LFTs are normal. Blood cultures were obtained. ECG showed NSR without acute ischemic changes. ED tx: Acetaminophen 975 mg p.o., NS 2 L bolus. Review of Systems 2 Review of Systems: All 12 systems were reviewed and normal except as noted in HPI. [facility] Medical History Elevated cholesterol BPH (benign prostatic hyperplasia) Osteoporosis Anxiety and depression CAD (coronary artery disease) HTN (hypertension) Erectile dysfunction Low back pain Diabetes mellitus Surgical History Hx of appendectomy History of ankle surgery H/O colonoscopy Hx of arthroscopic knee surgery Hx of CABG History of back surgery History of penile implant Social History Patient Tobacco Use Status: Former Tobacco user Quit Date: 2019 Tobacco use type: Cigarette Smoked in Last 30 Days: No Advance Directives: No Advance Directives Information Provided: No Do you have a plan to hurt others: No Plan Nutrition Risks: No Nutritional Risk Meds Allergies Allergy/AdvReac Type Severity Reaction Status Date / Time No Known Allergies Allergy Verified 03/11/24 15:21 [No Known Allergies*] Active Medications: Current Medications Acetaminophen (Acetaminophen 325 Mg Tablet) 650 mg PO Q6H PRN PRN Reason: Fever, headache, mild pain Calcium Carbonate (Calcium Carbonate 750 Mg Tab.Chew) 750 mg PO Q6H PRN PRN Reason: Heartburn Lactated Ringer's (Lr) 1,000 mls @ 125 mls/hr IVCONT .Q8H LG Magnesium Hydroxide (Milk Of Magnesia 30 Ml Oral.Susp) 30 ml PO DAILY PRN PRN Reason: Constipation Melatonin (Melatonin 3 Mg Tablet) 6 mg PO BEDTIME PRN PRN Reason: Insomnia Ondansetron HCl (Ondansetron Hcl 4 Mg/2 Ml Vial) 4 mg IVPUSH Q8H PRN PRN Reason: Nausea and Vomiting Pantoprazole Sodium (Pantoprazole Sodium 40 Mg/10 Ml Vial) 40 mg IVPUSH DAILY LG Polyethylene Glycol (Polyethylene Glycol 3350 17 Gm Powd.Pack) 17 gm PO DAILY PRN PRN Reason: Constipation Sodium Chloride (0.9 % Sodium Chloride Flush 3 Ml Syringe) 3 ml IVFLUSH QSHIFT LG Home Medications ?Medication ?Instructions ?Recorded ?Confirmed ?Last Taken ?Type blood sugar diagnostic (FreeStyle #10 ea 06/13/22 Unknown History Lite Strips) blood-glucose meter (FreeStyle #1 ea 06/13/22 Unknown History Lite Meter kit) cholecalciferol (vitamin D3) 25 25 mcg PO DAILY 06/13/22 03/11/24 Unknown History mcg (1,000 unit) tablet cyanocobalamin (vitamin B-12) 1,000 mcg PO DAILY 06/13/22 03/11/24 Unknown History 1,000 mcg tablet,extended release empagliflozin 25 mg tablet 25 mg PO DAILY 06/13/22 03/11/24 Unknown History (Jardiance) lancets 28 gauge (FreeStyle #100 ea 06/13/22 Unknown History Lancets) metformin 1,000 mg tablet 1,000 mg PO BIDWM 06/13/22 03/11/24 Unknown History sulfasalazine 500 mg tablet 1 tab PO BID 08/23/22 03/11/24 Unknown History aspirin 81 mg tablet,delayed 81 mg PO DAILY 03/06/24 03/11/24 Unknown History release atorvastatin 40 mg tablet 80 mg PO DAILY 03/06/24 03/11/24 Unknown History duloxetine 60 mg capsule,delayed 60 mg PO DAILY 03/06/24 03/11/24 Unknown History release zolpidem 10 mg tablet 10 mg PO BEDTIME PRN Sleep 03/06/24 03/11/24 Unknown History adalimumab 40 mg/0.4 mL 40 mg subcut Q2W 03/11/24 03/11/24 Unknown History subcutaneous pen kit (Humira(CF) Pen) betamethasone, augmented 0.05 % 1 appl topical BID PRN Rash 03/11/24 03/11/24 Unknown History topical ointment dulaglutide 4.5 mg/0.5 mL 4.5 mg subcut TU@0900 03/11/24 03/11/24 Unknown History subcutaneous pen injector (Trulicity) folic acid 1 mg tablet 1 mg PO DAILY 03/11/24 03/11/24 Unknown History insulin glargine 100 unit/mL (3 10 unit subcut DAILY 03/11/24 03/11/24 Unknown History mL) subcutaneous pen (Lantus Solostar U-100 Insulin) methotrexate sodium 2.5 mg tablet 10 mg PO TH@0900 03/11/24 03/11/24 Unknown History Physical Exam 2 Vital Signs and Narrative: Vital Signs: Last Vital Signs Temp 98.8 F 03/11/24 23:17 Pulse 91 03/11/24 23:17 Resp 14 03/11/24 23:17 BP 124/65 03/11/24 23:17 Pulse Ox 98 03/11/24 23:17 O2 Del Method Room Air 03/11/24 23:17 BMI result Body Mass Index 23.2 Constitutional - Awake and Alert, No apparent distress. Acute ill-appearing. HEENT - Pupils equally round. Normal sclerae. Very dry oral mucosa Heart - S1S2, RRR. Lungs - Normal lung expansion, Normal respiratory effort, No respiratory distress, CTA bilaterally Abdomen - NT / ND; increased BS; No rebound or guarding Extremities - No calf tenderness bilaterally, no swelling Musculoskeletal - Normal inspection, normal ROM Skin - Warm/Dry. No jaundice. Neurological - Alert & oriented x3. No focal weakness. Normal speech. Psychological - Appropriate affect Results Labs 03/11/24 15:38 03/11/24 15:38 Labs: Laboratory Results - last 24 hr 03/11/24 03/11/24 03/11/24 15:38 16:10 16:18 MCV 95.2 MCH 31.0 MCHC 32.5 RDW 13.6 Plt Count 193 MPV 10.9 Immature Gran % (Auto) 0.7 H Neut % (Auto) 89.6 H Lymph % (Auto) 4.2 L [place] % (Auto) 4.8 Eos % (Auto) 0.2 Baso % (Auto) 0.5 Lymph # (Auto) 0.5 L [place] # (Auto) 0.5 Eos # (Auto) 0.0 Baso # (Auto) 0.1 Abs Immat Gran (auto) 0.08 H Absolute Neuts (auto) 9.9 H Absolute Nucleated RBC 0.000 Nucleated RBC % (auto) 0.0 Anion Gap 14 Estim Creat Clear Calc 75.6 Estimated GFR > 60 Random Glucose 103 Lactic Acid 2.2 H* Lactic Acid F/U @ 2Hr Calcium 9.3 Total Bilirubin 0.5 AST 33 ALT 21 Alkaline Phosphatase 69 Total Protein 6.9 Albumin 3.9 Urine Color Urine Appearance Urine pH Ur Specific Combs Urine Protein Urine Glucose (UA) Urine Ketones Urine Blood Urine Nitrite Ur Leukocyte Esterase Urine RBC Urine WBC Ur Squamous Epith Cells Urine Bacteria Hyaline Casts Influenza Type A (PCR) NEGATIVE Influenza Type B (PCR) NEGATIVE RSV RNA Qual (PCR) NEGATIVE SARS-CoV-2 RNA (RT-PCR) NEGATIVE 03/11/24 03/11/24 18:45 20:49 MCV MCH MCHC RDW Plt Count MPV Immature Gran % (Auto) Neut % (Auto) Lymph % (Auto) [place] % (Auto) Eos % (Auto) Baso % (Auto) Lymph # (Auto) [place] # (Auto) Eos # (Auto) Baso # (Auto) Abs Immat Gran (auto) Absolute Neuts (auto) Absolute Nucleated RBC Nucleated RBC % (auto) Anion Gap Estim Creat Clear Calc Estimated GFR Random Glucose Lactic Acid Lactic Acid F/U @ 2Hr 0.9 Calcium Total Bilirubin AST ALT Alkaline Phosphatase Total Protein Albumin Urine Color Dark Yellow Urine Appearance Clear Urine pH 5.5 Ur Specific Combs >= 1.030 H Urine Protein 30 (1+) H Urine Glucose (UA) >=1000 H Urine Ketones 15 Urine Blood Negative Urine Nitrite Negative Ur Leukocyte Esterase Negative Urine RBC 0-2 Urine WBC 0-5 Ur Squamous Epith Cells 0-2 Urine Bacteria None Seen Hyaline Casts 3-5 Influenza Type A (PCR) Influenza Type B (PCR) RSV RNA Qual (PCR) SARS-CoV-2 RNA (RT-PCR) Imaging Radiologist's Impressions: Impressions Chest X-Ray 03/11/24 15:50 IMPRESSION: No acute finding. Head CT 03/11/24 16:49 IMPRESSION: No acute intracranial pathology. Assessment and Plan (1) Acute gastroenteritis: Status: Acute (2) Hypotension: Qualifiers: Hypotension type: hypotension due to hypovolemia Qualified Code(s): E 86.1 - Hypovolemia Status: Acute (3) CAD (coronary artery disease): Qualifiers: Coronary Disease-Associated Artery/Lesion type: [place] artery [place] vs. transplanted heart: unspecified whether [place] or transplanted heart A ssociated angina: without angina Qualified Code(s): I25.10 - Atherosclerotic heart disease of [place] coronary artery without angina pectoris Status: Acute (4) BPH (benign prostatic hyperplasia): Qualifiers: Lower urinary tract symptom presence: unspecified whether lower urinary tract symptoms present Qualified Code(s): N40.0 - Benign prostatic hyperplasia without lower urinary tract symptoms Status: Acute Plan Neville Pablo is a 68 years old man admitted with: * Acute gastroenteritis. Abdominal discomfort, nausea, vomiting and nondiarrhea, likely viral. Admit to hospitalist service. Supportive therapy with IV fluids and antiemetic. Stool panel. Diet as tolerated. * Hypotension + severe sepsis criteria; resolved. Likely secondary to dehydration/volume depletion/hypokalemia due to vomiting and diarrhea (likely viral). Additional bolus (LR) given. Will avoid IV antibiotics for now. Blood cultures obtained -will follow results. * CAD s/p CABG. Continue aspirin and statin. * Type 2 diabetes mellitus. Hold Trilucity and metformin for now. Continue Jardiance. Continue Lantus and insulin sliding scale. * Mood disorder. Continue duloxetine. * Hx of arhritis (psoriasis?). On MTX and sulfasalazine. Will hold these due to acute infection. Code status: Full DVT prophylaxis: SCDs. Early ambulation. Patient will need hospitalization for at least 2 midnights for acute gastroenteritis treatment with IV fluids and symptomatic therapy as needed. He also need close monitoring of vital signs and blood workup. Quality Stroke Does the patient have a stroke diagnosis?: No VTE Prior VTE?: No VTE Risk Level:: Medical - moderate - high VTE Device Contraindication: N/A - Device Ordered VTE Drug Contraindication: Treatment Not Indicated
[2024-03-12] VITALS (7 sets, daily range): BP systolic 92–140; BP diastolic 43–72; PULSE 75–97; RESP 13–20; TEMP 36.5–39.2; O2SAT 93–97
[2024-03-12] MEDS: Loperamide HCl 2 MG CAPSULE 4 MG PO (00:50)
[2024-03-12] MEDS: Lactated Ringers 1,000 ML 125 ML IVCONT ×4 (00:50→22:54)
[2024-03-12] MEDS: Acetaminophen 325 MG TABLET 650 MG PO ×3 (02:50→23:40)
--- NOTE | 2024-03-12 02:57 | PC.NURSE ---
Pt oral temp 102.3F. Tylenol 650mg administered PO. Pt tolerated well. [place] text sent to Dr. Gregg. No new orders at this time. Pt denies any pain and is resting at the bedside. Monitoring is ongoing.
[2024-03-12 07:25] LABS: Glucose, Whole Blood 110 mg/dL (60-115)
--- NOTE | 2024-03-12 08:35 | PC.NURSE ---
Temp 102.6 - MD Miranda made aware.
--- NOTE | 2024-03-12 09:16 | MHC.EDTECH ---
Patient states he needs to urinate and states he will try to have a bowel movement. Patient ambulated to commode. Patient urinated into commode, but unable to have a bowel movement. Patient ambulated back into bed. Patient resting in bed, patient states he is comfortable. Call briscoe placed within reach.
[2024-03-12] MEDS: Pantoprazole Sodium 40 MG/10 ML VIAL IVPUSH (09:24)
[2024-03-12] MEDS: Folic Acid 1 MG TABLET PO (09:25)
[2024-03-12] MEDS: Aspirin Enteric Coated 81 MG TABLET.DR PO (09:25)
[2024-03-12] MEDS: Atorvastatin Calcium 80 MG TABLET PO (09:25)
[2024-03-12] MEDS: Cyanocobalamin (Vitamin B-12) 1,000 MCG TABLET 1000 MCG PO (09:25)
[2024-03-12] MEDS: Cholecalciferol (Vitamin D3) 25 MCG TABLET PO (09:25)
[2024-03-12] MEDS: DULoxetine HCl 60 MG CAPSULE.DR PO (09:25)
[2024-03-12] MEDS: Insulin Glargine,Hum.rec.anlog 100 UNIT/ML 10 ML VIAL 10 UNIT SUBCUT (09:26)
[2024-03-12] MEDS: Empagliflozin 25 MG TABLET PO (10:17)
[2024-03-12] MEDS: sulfaSALAzine 500 MG TABLET PO ×2 (10:17→21:23)
[2024-03-12 10:35] LABS: Hematocrit 37.1 % (42.0-52.0); Hemoglobin 12.3 g/dl (14.0-18.0); Mean Corpuscular HGB Conc 33.2 g/dl (31.0-36.0); Mean Corpuscular Hemoglobin 31.1 pg (27.0-33.0); Mean Corpuscular Volume 93.7 fL (80.0-98.0); Mean Platelet Volume 10.5 fL (9.4-12.4); Platelet Count 160 X10*3/uL (160-400); Red Blood Count 3.96 X10*6/uL (4.60-5.80); Red Cell Distribution Width 13.8 % (11.0-16.0); White Blood Count 9.6 X10*3/uL (4.8-10.8)
--- NOTE | 2024-03-12 10:37 | PC.NURSE ---
Family at bedside at this time, awaitin CT Scan.
[2024-03-12 10:42] LABS: Anion Gap 10 (12-20); Blood Urea Nitrogen 23 mg/dL (9-16); C Reactive Protein 21.94 mg/dL (< or = 0.50); Calcium 8.4 mg/dL (8.4-10.2); Carbon Dioxide 23 mmol/L (22-29); Chloride 105 mmol/L (96-108); Estimated Glomerular Filt Rate 60; Glucose Random 126 mg/dL (60-115); Potassium 3.8 mmol/L (3.3-5.1); Sodium 134 mmol/L (135-145)
--- NOTE | 2024-03-12 10:58 | MHC.CM.PN ---
Patient is unavailable; CM spoke with Son/Amir @ [phone] and addressed IMM with him (original will be mailed certified letter to Amir and a copy will be placed on the chart). 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 Per Amir, services were coming into the home (Nurse) but he is unaware of the name of the agency. Home/resume said services is the goal and CM has initiated and will follow for dc planning. PCP is from [facility] in [place].
--- NOTE | 2024-03-12 11:28 | PC.NURSE ---
Temperature noted to be elevated during vital sign check; hospitalist notified, awaiting orders at this time.
--- NOTE | 2024-03-12 11:42 | PC.NURSE ---
Spoke with Hospitalist regarding elevated temp, tylenol order changed to every 4 hours, no other medications ordered for patient at this time. Patient had liquid bowel movement in commode, GI panel and C-Diff being collected and sent down to lab.
[2024-03-12 12:03] LABS: Glucose, Whole Blood 121 mg/dL (60-115)
[2024-03-12] MEDS: Barium Sulfate Oral (Berry) 450 ML ORAL.SUSP 900 ML PO (12:16)
[2024-03-12] MEDS: iohexoL 350 MG/ML 100 ML INFUS..BTL IV (12:38)
[2024-03-12 12:54] LABS: CDiff Gene PCR NEGATIVE (Negative)
--- NOTE | 2024-03-12 13:19 | HO.PM.IMPN ---
Subjective Subjective Date of Service: 03/12/24 Interval History: c/o ongoing diarrhea, fever no high-risk food exposures no abd pain Review of Systems Review of Systems: Yes all other systems are reviewed and are negative Physical Exam Vital Signs: Vital Signs: Last Vital Signs Temp 102.4 F H 03/12/24 11:16 Pulse 90 03/12/24 11:16 Resp 20 03/12/24 11:16 BP 114/50 L 03/12/24 11:16 Pulse Ox 93 03/12/24 11:16 O2 Del Method Room Air 03/12/24 11:16 BMI result Body Mass Index 23.2 Gen: in no acute distress HEENT: sclera anicteric, moist mucus membranes Neck: supple Lungs: clear to auscultation bilaterally Heart: regular rate and rhythm, no murmurs Abd: soft, non-tender, non-distended Ext: no edema Skin: warm/well-perfused Neuro: alert and oriented x3, no focal findings Psych: appropriate affect Objective Data Active Medications Acetaminophen (Acetaminophen 325 Mg Tablet) 650 mg PO Q4H PRN PRN Reason: Fever, headache, mild pain Aspirin (Aspirin Enteric Coated 81 Mg Tablet.) 81 mg PO DAILY [facility] Last Admin: 03/12/24 09:25 Dose: 81 mg Documented By: DEREK Atorvastatin Calcium (Atorvastatin Calcium 80 Mg Tablet) 80 mg PO DAILY [facility] Last Admin: 03/12/24 09:25 Dose: 80 mg Documented By: DEREK Calcium Carbonate (Calcium Carbonate 750 Mg Tab.Chew) 750 mg PO Q6H PRN PRN Reason: Heartburn Cyanocobalamin (Cyanocobalamin (Vitamin B-12) 1,000 Mcg Tablet) 1,000 mcg PO DAILY [facility] Last Admin: 03/12/24 09:25 Dose: 1,000 mcg Documented By: DEREK Duloxetine HCl (Duloxetine Hcl 60 Mg Capsule.) 60 mg PO DAILY [facility] Last Admin: 03/12/24 09:25 Dose: 60 mg Documented By: DEREK Empagliflozin (Empagliflozin 25 Mg Tablet) 25 mg PO DAILY [facility] Last Admin: 03/12/24 10:17 Dose: 25 mg Documented By: DEREK Folic Acid (Folic Acid 1 Mg Tablet) 1 mg PO DAILY [facility] Last Admin: 03/12/24 09:25 Dose: 1 mg Documented By: DEREK Glucose (Glucose Gel 15 Gm Gel..Gram.) 15 gm PO Q15M PRN; Protocol PRN Reason: per Hypoglycemia Standing Ord. Lactated Ringer's (Lr) 1,000 mls @ 125 mls/hr IVCONT .Q8H [facility] Last Admin: 03/12/24 09:24 Dose: 125 mls/hr Documented By: DEREK Dextrose (D10) 250 mls @ 750 mls/hr IV Q15M PRN; Protocol PRN Reason: per Hypoglycemia Standing Ord. Insulin Glargine (Insulin Glargine,Hum.Rec.Anlog 100 Unit/Ml 10 Ml Vial) 10 unit SUBCUT DAILY [facility] Last Admin: 03/12/24 09:26 Dose: 10 unit Documented By: DEREK Comments: Barcode eroded, wont scan Insulin Human Lispro (Insulin Lispro 100 Unit/Ml 3 Ml Vial) 0 unit SUBCUT QIDACHS [facility]; Protocol Last Admin: 03/12/24 12:05 Dose: Not Given Documented By: YONI Non-Admin Reason: No Insulin Coverage Comments: POC 121 Magnesium Hydroxide (Milk Of Magnesia 30 Ml Oral.Susp) 30 ml PO DAILY PRN PRN Reason: Constipation Methotrexate (Methotrexate Sodium 2.5 Mg Tablet) 10 mg PO TH@0900 [facility] Ondansetron HCl (Ondansetron Hcl 4 Mg/2 Ml Vial) 4 mg IVPUSH Q8H PRN PRN Reason: Nausea and Vomiting Pantoprazole Sodium (Pantoprazole Sodium 40 Mg/10 Ml Vial) 40 mg IVPUSH DAILY [facility] Last Admin: 03/12/24 09:24 Dose: 40 mg Documented By: DEREK Polyethylene Glycol (Polyethylene Glycol 3350 17 Gm Powd.Pack) 17 gm PO DAILY PRN PRN Reason: Constipation Sodium Chloride (0.9 % Sodium Chloride Flush 3 Ml Syringe) 3 ml IVFLUSH QSHIFT [facility] Last Admin: 03/12/24 09:25 Dose: Not Given Documented By: DEREK Non-Admin Reason: IV Running Sulfasalazine (Sulfasalazine 500 Mg Tablet) 500 mg PO BID [facility] Last Admin: 03/12/24 10:17 Dose: 500 mg Documented By: DEREK Vitamin D (Cholecalciferol (Vitamin D3) 25 Mcg Tablet) 25 mcg PO DAILY [facility] Last Admin: 03/12/24 09:25 Dose: 25 mcg Documented By: DEREK Zolpidem Tartrate (Zolpidem Tartrate 5 Mg Tablet) 10 mg PO BEDTIME PRN PRN Reason: Sleep Labs 03/12/24 10:22 03/12/24 10:22 Labs: Laboratory Results - last 24 hr 03/11/24 03/11/24 03/11/24 15:38 16:10 16:18 MCV 95.2 MCH 31.0 MCHC 32.5 RDW 13.6 Plt Count 193 MPV 10.9 Immature Gran % (Auto) 0.7 H Neut % (Auto) 89.6 H Lymph % (Auto) 4.2 L [place] % (Auto) 4.8 Eos % (Auto) 0.2 Baso % (Auto) 0.5 Lymph # (Auto) 0.5 L [place] # (Auto) 0.5 Eos # (Auto) 0.0 Baso # (Auto) 0.1 Abs Immat Gran (auto) 0.08 H Absolute Neuts (auto) 9.9 H Absolute Nucleated RBC 0.000 Nucleated RBC % (auto) 0.0 Anion Gap 14 Estim Creat Clear Calc 75.6 Estimated GFR > 60 POC Glucose Random Glucose 103 Lactic Acid 2.2 H* Lactic Acid F/U @ 2Hr Calcium 9.3 Total Bilirubin 0.5 AST 33 ALT 21 Alkaline Phosphatase 69 C-Reactive Protein Total Protein 6.9 Albumin 3.9 Urine Color Urine Appearance Urine pH Ur Specific [place] Urine Protein Urine Glucose (UA) Urine Ketones Urine Blood Urine Nitrite Ur Leukocyte Esterase Urine RBC Urine WBC Ur Squamous Epith Cells Urine Bacteria Hyaline Casts C. difficile Tox B Gene Influenza Type A (PCR) NEGATIVE Influenza Type B (PCR) NEGATIVE RSV RNA Qual (PCR) NEGATIVE SARS-CoV-2 RNA (RT-PCR) NEGATIVE 03/11/24 03/11/24 03/12/24 18:45 20:49 07:22 MCV MCH MCHC RDW Plt Count MPV Immature Gran % (Auto) Neut % (Auto) Lymph % (Auto) [place] % (Auto) Eos % (Auto) Baso % (Auto) Lymph # (Auto) [place] # (Auto) Eos # (Auto) Baso # (Auto) Abs Immat Gran (auto) Absolute Neuts (auto) Absolute Nucleated RBC Nucleated RBC % (auto) Anion Gap Estim Creat Clear Calc Estimated GFR POC Glucose 110 Random Glucose Lactic Acid Lactic Acid F/U @ 2Hr 0.9 Calcium Total Bilirubin AST ALT Alkaline Phosphatase C-Reactive Protein Total Protein Albumin Urine Color Dark Yellow Urine Appearance Clear Urine pH 5.5 Ur Specific [place] >= 1.030 H Urine Protein 30 (1+) H Urine Glucose (UA) >=1000 H Urine Ketones 15 Urine Blood Negative Urine Nitrite Negative Ur Leukocyte Esterase Negative Urine RBC 0-2 Urine WBC 0-5 Ur Squamous Epith Cells 0-2 Urine Bacteria None Seen Hyaline Casts 3-5 C. difficile Tox B Gene Influenza Type A (PCR) Influenza Type B (PCR) RSV RNA Qual (PCR) SARS-CoV-2 RNA (RT-PCR) 03/12/24 03/12/24 03/12/24 10:22 11:53 12:00 MCV 93.7 MCH 31.1 MCHC 33.2 RDW 13.8 Plt Count 160 MPV 10.5 Immature Gran % (Auto) Neut % (Auto) Lymph % (Auto) [place] % (Auto) Eos % (Auto) Baso % (Auto) Lymph # (Auto) [place] # (Auto) Eos # (Auto) Baso # (Auto) Abs Immat Gran (auto) Absolute Neuts (auto) Absolute Nucleated RBC 0.000 Nucleated RBC % (auto) 0.0 Anion Gap 10 L Estim Creat Clear Calc 60.0 Estimated GFR 60 POC Glucose 121 H Random Glucose 126 H Lactic Acid Lactic Acid F/U @ 2Hr Calcium 8.4 D Total Bilirubin AST ALT Alkaline Phosphatase C-Reactive Protein 21.94 H Total Protein Albumin Urine Color Urine Appearance Urine pH Ur Specific [place] Urine Protein Urine Glucose (UA) Urine Ketones Urine Blood Urine Nitrite Ur Leukocyte Esterase Urine RBC Urine WBC Ur Squamous Epith Cells Urine Bacteria Hyaline Casts C. difficile Tox B Gene NEGATIVE Influenza Type A (PCR) Influenza Type B (PCR) RSV RNA Qual (PCR) SARS-CoV-2 RNA (RT-PCR) Assessment and Plan (1) Acute febrile illness: Status: Acute Assessment and Plan: d2 68yo M with CAD s/p CABG, DM2 on insulin, BPH presenting with vomiting + diarrhea, found to be febrile and hypotensive through fluid-responsive viral sepsis due to acute gastroenteritis - suspicion for viral but will obtain CT A/P. follow stool panel; Cdiff negative. IV fluids, loperamide CAD s/p CABG - ASA, statin DM2 - hold Trulicity/MTF, continue Jardiance/Lantus/colleen-dose lispro mood disorder - duloxetine arthritis- ?psoriatic ?rheumatoid - continue MTX + sulfasalazine VTE ppx - LMWH dispo - eventual home In my clinical judgment, the patient requires continued inpatient hospitalization for the following reasons: hydration, hypotension, fever workup Total time managing care of this patient today: 35 minutes. Quality Stroke Does the patient have a stroke diagnosis?: No VTE Prior VTE?: No VTE Risk Level:: Medical - moderate - high VTE Device Contraindication: N/A - Device Ordered VTE Drug Contraindication: Treatment Not Indicated
[2024-03-12 16:31] LABS: Adenovirus F 40/41 Not Detected (Not Detect.); Astrovirus Not Detected (Not Detect.); Campylobacter Not Detected (Not Detect.); Cryptosporidium Not Detected (Not Detect.); Cyclospora cayetanensis Not Detected (Not Detect.); E. coli EAEC Detected (Not Detect.); E. coli EPEC Detected (Not Detect.); E. coli ETEC Detected (Not Detect.); E. coli STEC Not Detected (Not Detect.); Entamoeba histolytica Not Detected (Not Detect.); Giardia lamblia Not Detected (Not Detect.); Norovirus GI/GII Not Detected (Not Detect.); Plesiomonas shigelloides Not Detected (Not Detect.); Rotavirus A Not Detected (Not Detect.); Salmonella Not Detected (Not Detect.); Sapovirus Not Detected (Not Detect.); Vibrio Not Detected (Not Detect.); Vibrio Cholerae Not Detected (Not Detect.); Yersinia enterocolitica Not Detected (Not Detect.)
[2024-03-12] MEDS: Enoxaparin Sodium 40 MG/0.4 ML SYRINGE SUBCUT (16:57)
[2024-03-12 17:26] LABS: Shigella sp./EIEC Detected (Not Detect.)
[2024-03-12] MEDS: levoFLOXacin/D5W 500 MG/100 ML PIGGYBACK 100 MG IV (18:12)
[2024-03-12 18:17] LABS: Glucose, Whole Blood 75 mg/dL (60-115)
--- NOTE | 2024-03-12 19:00 | MHC.EDTECH ---
Dinner tray given to patient.
[2024-03-12 21:09] LABS: Glucose, Whole Blood 144 mg/dL (60-115)
--- NOTE | 2024-03-12 21:47 | MHC.EDTECH ---
@21:30 Patient used his call briscoe for assistance to the commode. This tech helped him safely onto the commode and gave him the call briscoe for when he was all set.
--- NOTE | 2024-03-12 21:48 | MHC.EDTECH ---
@21:40 patient used his call briscoe to have assistance back into bed. At this time patient is resting comfortably in bed. with his call briscoe at his side.
--- NOTE | 2024-03-12 22:36 | MHC.EDTECH ---
At this time, this tech brought a recliner to the family member staying with patient.
--- NOTE | 2024-03-12 23:16 | PC.NURSE ---
Handoff report to Nina RITCHIE.
--- NOTE | 2024-03-12 23:38 | MHC.EDTECH ---
THIS PCT ASSUMED CARE OF PATIENT AT 2300 ,VITALS TAKEN ,BEDSIDE COMMODE EMPTY ,PATIENT AT BEDSIDE .
--- NOTE | 2024-03-13 01:24 | PC.NURSE ---
pt's phone was alarming while RN was in the room. it was an alert warning of hypoglycemic at 68. our POC recorded 90, juice given to pt. no symptoms at this time.
[2024-03-13 01:31] LABS: Glucose, Whole Blood 90 mg/dL (60-115)
[2024-03-13 04:43] VITALS: BP 104/49; PULSE 73; RESP 16; TEMP 36.6; O2SAT 96
--- NOTE | 2024-03-13 04:44 | MHC.EDTECH ---
0400 rounding done ,vitals taken ,patient was incontinent of watery stool care given ,call briscoe within patient reach .
[2024-03-13 05:11] LABS: Hemoglobin 11.8 g/dl (14.0-18.0); Mean Corpuscular HGB Conc 33.7 g/dl (31.0-36.0); Mean Corpuscular Hemoglobin 31.2 pg (27.0-33.0); Mean Corpuscular Volume 92.6 fL (80.0-98.0); Mean Platelet Volume 11.1 fL (9.4-12.4); Platelet Count 169 X10*3/uL (160-400); Red Blood Count 3.78 X10*6/uL (4.60-5.80); Red Cell Distribution Width 13.9 % (11.0-16.0); White Blood Count 7.8 X10*3/uL (4.8-10.8)
[2024-03-13 05:34] LABS: Anion Gap 12 (12-20); Blood Urea Nitrogen 18 mg/dL (9-16); Calcium 8.7 mg/dL (8.4-10.2); Carbon Dioxide 20 mmol/L (22-29); Chloride 108 mmol/L (96-108); Creatinine Clr Calc Pharmacy 74.9; Estimated Glomerular Filt Rate > 60; Glucose Random 89 mg/dL (60-115); Sodium 137 mmol/L (135-145)
[2024-03-13 05:56] VITALS: PULSE 64; RESP 18; TEMP 37.2; O2SAT 95
[2024-03-13] MEDS: Lactated Ringers 1,000 ML 125 ML IVCONT ×2 (06:49→15:06)
[2024-03-13 07:18] LABS: Glucose, Whole Blood 117 mg/dL (60-115)
[2024-03-13 08:13] LABS: Magnesium 1.7 mg/dL (1.6-2.6)
[2024-03-13] MEDS: Empagliflozin 25 MG TABLET PO (10:17)
[2024-03-13] MEDS: Atorvastatin Calcium 80 MG TABLET PO (10:17)
[2024-03-13] MEDS: Aspirin Enteric Coated 81 MG TABLET.DR PO (10:17)
[2024-03-13] MEDS: DULoxetine HCl 60 MG CAPSULE.DR PO (10:17)
--- NOTE | 2024-03-13 10:17 | HO.PM.IMPN ---
Subjective Subjective Date of Service: 03/13/24 Interval History: Tmax 100.6 @ 21:58 fever overall improved ongoing diarrhea but no abd pain Review of Systems Review of Systems: Yes all other systems are reviewed and are negative Physical Exam Vital Signs: Vital Signs: Last Vital Signs Temp 98.9 F 03/13/24 05:56 Pulse 64 03/13/24 05:56 Resp 18 03/13/24 05:56 BP 104/49 L 03/13/24 04:43 Pulse Ox 95 03/13/24 05:56 O2 Del Method Room Air 03/13/24 05:56 BMI result Body Mass Index 23.2 Gen: in no acute distress HEENT: sclera anicteric, moist mucus membranes Neck: supple Lungs: clear to auscultation bilaterally Heart: regular rate and rhythm, no murmurs Abd: soft, non-tender, non-distended Ext: no edema Skin: warm/well-perfused Neuro: alert and oriented x3, no focal findings Psych: appropriate affect Objective Data Active Medications Acetaminophen (Acetaminophen 325 Mg Tablet) 650 mg PO Q4H PRN PRN Reason: Fever, headache, mild pain Last Admin: 03/12/24 23:40 Dose: 650 mg Documented By: COREY Aspirin (Aspirin Enteric Coated 81 Mg Tablet.) 81 mg PO DAILY [facility] Last Admin: 03/12/24 09:25 Dose: 81 mg Documented By: DEREK Atorvastatin Calcium (Atorvastatin Calcium 80 Mg Tablet) 80 mg PO DAILY [facility] Last Admin: 03/12/24 09:25 Dose: 80 mg Documented By: DEREK Calcium Carbonate (Calcium Carbonate 750 Mg Tab.Chew) 750 mg PO Q6H PRN PRN Reason: Heartburn Cyanocobalamin (Cyanocobalamin (Vitamin B-12) 1,000 Mcg Tablet) 1,000 mcg PO DAILY [facility] Last Admin: 03/12/24 09:25 Dose: 1,000 mcg Documented By: DEREK Duloxetine HCl (Duloxetine Hcl 60 Mg Capsule.) 60 mg PO DAILY [facility] Last Admin: 03/12/24 09:25 Dose: 60 mg Documented By: DEREK Empagliflozin (Empagliflozin 25 Mg Tablet) 25 mg PO DAILY [facility] Last Admin: 03/12/24 10:17 Dose: 25 mg Documented By: DEREK Enoxaparin Sodium (Enoxaparin Sodium 40 Mg/0.4 Ml Syringe) 40 mg SUBCUT Q24H [facility] Last Admin: 03/12/24 16:57 Dose: 40 mg Documented By: BRICE Folic Acid (Folic Acid 1 Mg Tablet) 1 mg PO DAILY [facility] Last Admin: 03/12/24 09:25 Dose: 1 mg Documented By: DEREK Glucose (Glucose Gel 15 Gm Gel..Gram.) 15 gm PO Q15M PRN; Protocol PRN Reason: per Hypoglycemia Standing Ord. Lactated Ringer's (Lr) 1,000 mls @ 125 mls/hr IVCONT .Q8H [facility] Last Admin: 03/13/24 06:49 Dose: 125 mls/hr Documented By: FEDERICO Dextrose (D10) 250 mls @ 750 mls/hr IV Q15M PRN; Protocol PRN Reason: per Hypoglycemia Standing Ord. Levofloxacin (Levaquin) 500 mg in 100 mls @ 100 mls/hr IV Q24H [facility] Last Infusion: 03/12/24 19:11 Dose: Infused Documented By: YONI Insulin Glargine (Insulin Glargine,Hum.Rec.Anlog 100 Unit/Ml 10 Ml Vial) 10 unit SUBCUT DAILY [facility] Last Admin: 03/12/24 09:26 Dose: 10 unit Documented By: DEREK Comments: Barcode eroded, wont scan Insulin Human Lispro (Insulin Lispro 100 Unit/Ml 3 Ml Vial) 0 unit SUBCUT QIDACHS [facility]; Protocol Last Admin: 03/13/24 09:40 Dose: Not Given Documented By: DILSHAD Non-Admin Reason: No Insulin Coverage Loperamide HCl (Loperamide Hcl 2 Mg Capsule) 2 mg PO Q4H PRN PRN Reason: Diarrhea Magnesium Hydroxide (Milk Of Magnesia 30 Ml Oral.Susp) 30 ml PO DAILY PRN PRN Reason: Constipation Methotrexate (Methotrexate Sodium 2.5 Mg Tablet) 10 mg PO TH@0900 [facility] Ondansetron HCl (Ondansetron Hcl 4 Mg/2 Ml Vial) 4 mg IVPUSH Q8H PRN PRN Reason: Nausea and Vomiting Pantoprazole Sodium (Pantoprazole Sodium 40 Mg/10 Ml Vial) 40 mg IVPUSH DAILY [facility] Last Admin: 03/12/24 09:24 Dose: 40 mg Documented By: DEREK Polyethylene Glycol (Polyethylene Glycol 3350 17 Gm Powd.Pack) 17 gm PO DAILY PRN PRN Reason: Constipation Sodium Chloride (0.9 % Sodium Chloride Flush 3 Ml Syringe) 3 ml IVFLUSH QSHIFT [facility] Last Admin: 03/12/24 23:41 Dose: Not Given Documented By: COREY Non-Admin Reason: IV Running Sulfasalazine (Sulfasalazine 500 Mg Tablet) 500 mg PO BID [facility] Last Admin: 03/12/24 21:23 Dose: 500 mg Documented By: COREY Vitamin D (Cholecalciferol (Vitamin D3) 25 Mcg Tablet) 25 mcg PO DAILY [facility] Last Admin: 03/12/24 09:25 Dose: 25 mcg Documented By: DEREK Zolpidem Tartrate (Zolpidem Tartrate 5 Mg Tablet) 10 mg PO BEDTIME PRN PRN Reason: Sleep Labs 03/13/24 03:44 03/13/24 03:44 Labs: Laboratory Results - last 24 hr 03/12/24 03/12/24 03/12/24 10:22 11:53 12:00 MCV 93.7 MCH 31.1 MCHC 33.2 RDW 13.8 Plt Count 160 MPV 10.5 Absolute Nucleated RBC 0.000 Nucleated RBC % (auto) 0.0 Anion Gap 10 L Estim Creat Clear Calc 60.0 Estimated GFR 60 POC Glucose 121 H Random Glucose 126 H Calcium 8.4 D Magnesium C-Reactive Protein 21.94 H Stl C. cayetanensis PCR Not Detected Stool Rotavirus A PCR Not Detected Stl Adenov F 4041 PCR Not Detected Stool Astrovirus (PCR) Not Detected Stool Campylobacter PCR Not Detected Stool Cryptosporidium PCR Not Detected Stl Sh Tox Pr E STEC PCR Not Detected Stool E coli O157 PCR Not applicable Stl Enterotoxigenic E PCR Detected A Stool EPEC (PCR) Detected A Stool EAEC (PCR) Detected A Stl E. histolytica PCR Not Detected Stool Giardia Lamblia PCR Not Detected Stl P. shigelloides PCR Not Detected Stool Salmonella PCR Not Detected Stool Sapovirus (PCR) Not Detected Stl Shigella/EIEC PCR Detected A St Y.enterocolitica PCR Not Detected Stool Vibrio (PCR) Not Detected Stl Vibrio cholerae PCR Not Detected Stl Norovirus GI/GII PCR Not Detected C. difficile Tox B Gene NEGATIVE 03/12/24 03/12/24 03/13/24 18:09 21:06 01:27 MCV MCH MCHC RDW Plt Count MPV Absolute Nucleated RBC Nucleated RBC % (auto) Anion Gap Estim Creat Clear Calc Estimated GFR POC Glucose 75 144 H 90 Random Glucose Calcium Magnesium C-Reactive Protein Stl C. cayetanensis PCR Stool Rotavirus A PCR Stl Adenov F 40/41 PCR Stool Astrovirus (PCR) Stool Campylobacter PCR Stool Cryptosporidium PCR Stl Sh Tox Pr E STEC PCR Stool E coli O157 PCR Stl Enterotoxigenic E PCR Stool EPEC (PCR) Stool EAEC (PCR) Stl E. histolytica PCR Stool Giardia Lamblia PCR Stl P. shigelloides PCR Stool Salmonella PCR Stool Sapovirus (PCR) Stl Shigella/EIEC PCR St Y.enterocolitica PCR Stool Vibrio (PCR) Stl Vibrio cholerae PCR Stl Norovirus GI/GII PCR C. difficile Tox B Gene 03/13/24 03/13/24 03:44 07:14 MCV 92.6 MCH 31.2 MCHC 33.7 RDW 13.9 Plt Count 169 MPV 11.1 Absolute Nucleated RBC 0.000 Nucleated RBC % (auto) 0.0 Anion Gap 12 Estim Creat Clear Calc 74.9 Estimated GFR > 60 POC Glucose 117 H Random Glucose 89 Calcium 8.7 Magnesium 1.7 C-Reactive Protein Stl C. cayetanensis PCR Stool Rotavirus A PCR Stl Adenov F 40/41 PCR Stool Astrovirus (PCR) Stool Campylobacter PCR Stool Cryptosporidium PCR Stl Sh Tox Pr E STEC PCR Stool E coli O157 PCR Stl Enterotoxigenic E PCR Stool EPEC (PCR) Stool EAEC (PCR) Stl E. histolytica PCR Stool Giardia Lamblia PCR Stl P. shigelloides PCR Stool Salmonella PCR Stool Sapovirus (PCR) Stl Shigella/EIEC PCR St Y.enterocolitica PCR Stool Vibrio (PCR) Stl Vibrio cholerae PCR Stl Norovirus GI/GII PCR C. difficile Tox B Gene Microbiology Microbiology Results: Microbiology 03/11/24 16:10 Blood Culture - Preliminary Blood - Venous No growth after 24 hours. 03/11/24 15:38 Blood Culture - Preliminary Blood - Venous No growth after 24 hours. Assessment and Plan (1) Acute febrile illness: Status: Acute Assessment and Plan: d3 68yo M with CAD s/p CABG, DM2 on insulin, BPH presenting with vomiting + diarrhea, found to be febrile and hypotensive through fluid-responsive initially thought to have viral gastroenteritis but ultimately found to have shigellosis shigellosis - levofloxacin 03/12- - stool also positive for ETEC, EAEC, and EPEC - ID consultation - continue IV fluids - d/c loperamide hypoK - replete PO, recheck level in AM lactic acidosis - resolved p IV fluid hydration + holding MTF CAD s/p CABG - ASA, statin DM2 - hold Trulicity/MTF, continue Jardiance/Lantus/colleen-dose lispro mood disorder - duloxetine RA - continue MTX + sulfasalazine VTE ppx - LMWH dispo - eventual home In my clinical judgment, the patient requires continued inpatient hospitalization for the following reasons: IV antibiotics + fluids, uncontrolled diarrhea Total time managing care of this patient today: 35 minutes. Quality Stroke Does the patient have a stroke diagnosis?: No VTE Prior VTE?: No VTE Risk Level:: Medical - moderate - high VTE Device Contraindication: N/A - Device Ordered VTE Drug Contraindication: Treatment Not Indicated
[2024-03-13] MEDS: Cyanocobalamin (Vitamin B-12) 1,000 MCG TABLET 1000 MCG PO (10:18)
[2024-03-13] MEDS: Folic Acid 1 MG TABLET PO (10:18)
[2024-03-13] MEDS: sulfaSALAzine 500 MG TABLET PO ×2 (10:18→21:09)
[2024-03-13] MEDS: Cholecalciferol (Vitamin D3) 25 MCG TABLET PO (10:18)
[2024-03-13] MEDS: 0.9 % Sodium Chloride Flush 3 ML SYRINGE IVFLUSH (10:19)
[2024-03-13] MEDS: Insulin Glargine,Hum.rec.anlog 100 UNIT/ML 10 ML VIAL 10 UNIT SUBCUT (10:19)
[2024-03-13] MEDS: Potassium Chloride Packet 20 MEQ PACKET 40 MEQ PO (10:26)
[2024-03-13] MEDS: Pantoprazole Sodium 40 MG/10 ML VIAL IVPUSH (10:26)
--- NOTE | 2024-03-13 10:29 | MHC.IC ---
Pt has SHIGELLA and pathogenic Ecoli in stool. Please maintain CONTACT precautions.
[2024-03-13 12:00] VITALS: BP 146/74; PULSE 66; RESP 20; TEMP 36.1; O2SAT 99
[2024-03-13 12:16] LABS: Glucose, Whole Blood 149 mg/dL (60-115)
[2024-03-13] MEDS: Enoxaparin Sodium 40 MG/0.4 ML SYRINGE SUBCUT (13:59)
[2024-03-13 16:00] VITALS: BP 184/81; PULSE 65; RESP 20; TEMP 36.1; O2SAT 98
[2024-03-13 16:05] LABS: Glucose, Whole Blood 82 mg/dL (60-115)
[2024-03-13] MEDS: levoFLOXacin/D5W 500 MG/100 ML PIGGYBACK 100 MG IV (18:12)
[2024-03-13 19:32] VITALS: BP 160/79; PULSE 59; RESP 16; TEMP 36.1; O2SAT 98
[2024-03-13 20:10] LABS: Glucose, Whole Blood 118 mg/dL (60-115)
--- NOTE | 2024-03-13 23:12 | P.CNID_ITS ---
History of Present Illness Data of Consult Service Date: 03/13/24 Requesting physician: Gricelda Miranda Primary Care Provider: Unknown Physician HPI Reason for consult: shigella,ETEC stool He presents with multiple loose stools over last several days. He denies blood. He has some fevers. He denies travel or pet exposure. Review of Systems 2 Review of Systems: Yes all other systems are reviewed and are negative PMFSH Past Medical History Medical History (Updated 03/13/24 @ 23:16 by Jahaira De Luna MD) Shigella enteritis Elevated cholesterol BPH (benign prostatic hyperplasia) Osteoporosis Anxiety and depression CAD (coronary artery disease) HTN (hypertension) Erectile dysfunction Low back pain Diabetes mellitus Family History Family history: reviewed and not pertinent Surgical History Surgical History Hx of appendectomy History of ankle surgery H/O colonoscopy Hx of arthroscopic knee surgery Hx of CABG History of back surgery History of penile implant Social History Social History Household Members: Family Patient Tobacco Use Status: Former Tobacco user Quit Date: 2019 Tobacco use type: Cigarette service: No Meds Allergies Allergy/AdvReac Type Severity Reaction Status Date / Time No Known Allergies Allergy Verified 03/11/24 15:21 [No Known Allergies*] Active Medications: Current Medications Acetaminophen (Acetaminophen 325 Mg Tablet) 650 mg PO Q4H PRN PRN Reason: Fever, headache, mild pain Last Admin: 03/12/24 23:40 Dose: 650 mg Aspirin (Aspirin Enteric Coated 81 Mg Tablet.) 81 mg PO DAILY [facility] Last Admin: 03/13/24 10:17 Dose: 81 mg Atorvastatin Calcium (Atorvastatin Calcium 80 Mg Tablet) 80 mg PO DAILY [facility] Last Admin: 03/13/24 10:17 Dose: 80 mg Calcium Carbonate (Calcium Carbonate 750 Mg Tab.Chew) 750 mg PO Q6H PRN PRN Reason: Heartburn Cyanocobalamin (Cyanocobalamin (Vitamin B-12) 1,000 Mcg Tablet) 1,000 mcg PO DAILY [facility] Last Admin: 03/13/24 10:18 Dose: 1,000 mcg Duloxetine HCl (Duloxetine Hcl 60 Mg Capsule.) 60 mg PO DAILY [facility] Last Admin: 03/13/24 10:17 Dose: 60 mg Empagliflozin (Empagliflozin 25 Mg Tablet) 25 mg PO DAILY [facility] Last Admin: 03/13/24 10:17 Dose: 25 mg Enoxaparin Sodium (Enoxaparin Sodium 40 Mg/0.4 Ml Syringe) 40 mg SUBCUT Q24H [facility] Last Admin: 03/13/24 13:59 Dose: 40 mg Folic Acid (Folic Acid 1 Mg Tablet) 1 mg PO DAILY [facility] Last Admin: 03/13/24 10:18 Dose: 1 mg Glucose (Glucose Gel 15 Gm Gel..Gram.) 15 gm PO Q15M PRN; Protocol PRN Reason: per Hypoglycemia Standing Ord. Dextrose (D10) 250 mls @ 750 mls/hr IV Q15M PRN; Protocol PRN Reason: per Hypoglycemia Standing Ord. Levofloxacin (Levaquin) 500 mg in 100 mls @ 100 mls/hr IV Q24H [facility] Last Infusion: 03/13/24 19:24 Dose: Infused Insulin Glargine (Insulin Glargine,Hum.Rec.Anlog 100 Unit/Ml 10 Ml Vial) 10 unit SUBCUT DAILY [facility] Last Admin: 03/13/24 10:19 Dose: 10 unit Insulin Human Lispro (Insulin Lispro 100 Unit/Ml 3 Ml Vial) 0 unit SUBCUT QIDACHS [facility]; Protocol Last Admin: 03/13/24 20:19 Dose: Not Given Magnesium Hydroxide (Milk Of Magnesia 30 Ml Oral.Susp) 30 ml PO DAILY PRN PRN Reason: Constipation Methotrexate (Methotrexate Sodium 2.5 Mg Tablet) 10 mg PO TH@0900 [facility] Last Admin: 03/13/24 11:32 Dose: Not Given Ondansetron HCl (Ondansetron Hcl 4 Mg/2 Ml Vial) 4 mg IVPUSH Q8H PRN PRN Reason: Nausea and Vomiting Pantoprazole Sodium (Pantoprazole Sodium 40 Mg/10 Ml Vial) 40 mg IVPUSH DAILY [facility] Last Admin: 03/13/24 10:26 Dose: 40 mg Polyethylene Glycol (Polyethylene Glycol 3350 17 Gm Powd.Pack) 17 gm PO DAILY PRN PRN Reason: Constipation Sodium Chloride (0.9 % Sodium Chloride Flush 3 Ml Syringe) 3 ml IVFLUSH QSHIFT [facility] Last Admin: 03/13/24 16:16 Dose: Not Given Sulfasalazine (Sulfasalazine 500 Mg Tablet) 500 mg PO BID [facility] Last Admin: 03/13/24 21:09 Dose: 500 mg Vitamin D (Cholecalciferol (Vitamin D3) 25 Mcg Tablet) 25 mcg PO DAILY [facility] Last Admin: 03/13/24 10:18 Dose: 25 mcg Zolpidem Tartrate (Zolpidem Tartrate 5 Mg Tablet) 10 mg PO BEDTIME PRN PRN Reason: Sleep Home Medications ?Medication ?Instructions ?Recorded ?Confirmed ?Last Taken ?Type blood sugar diagnostic (FreeStyle #10 ea 06/13/22 Unknown History Lite Strips) blood-glucose meter (FreeStyle #1 ea 06/13/22 Unknown History Lite Meter kit) cholecalciferol (vitamin D3) 25 25 mcg PO DAILY 06/13/22 03/11/24 Unknown History mcg (1,000 unit) tablet cyanocobalamin (vitamin B-12) 1,000 mcg PO DAILY 06/13/22 03/11/24 Unknown History 1,000 mcg tablet,extended release empagliflozin 25 mg tablet 25 mg PO DAILY 06/13/22 03/11/24 Unknown History (Jardiance) lancets 28 gauge (FreeStyle #100 ea 06/13/22 Unknown History Lancets) metformin 1,000 mg tablet 1,000 mg PO BIDWM 06/13/22 03/11/24 Unknown History sulfasalazine 500 mg tablet 1 tab PO BID 08/23/22 03/11/24 Unknown History aspirin 81 mg tablet,delayed 81 mg PO DAILY 03/06/24 03/11/24 Unknown History release atorvastatin 40 mg tablet 80 mg PO DAILY 03/06/24 03/11/24 Unknown History duloxetine 60 mg capsule,delayed 60 mg PO DAILY 03/06/24 03/11/24 Unknown History release zolpidem 10 mg tablet 10 mg PO BEDTIME PRN Sleep 03/06/24 03/11/24 Unknown History adalimumab 40 mg/0.4 mL 40 mg subcut Q2W 03/11/24 03/11/24 Unknown History subcutaneous pen kit (Humira(CF) Pen) betamethasone, augmented 0.05 % 1 appl topical BID PRN Rash 03/11/24 03/11/24 Unknown History topical ointment dulaglutide 4.5 mg/0.5 mL 4.5 mg subcut TU@0900 03/11/24 03/11/24 Unknown History subcutaneous pen injector (Trulicity) folic acid 1 mg tablet 1 mg PO DAILY 03/11/24 03/11/24 Unknown History insulin glargine 100 unit/mL (3 10 unit subcut DAILY 03/11/24 03/11/24 Unknown History mL) subcutaneous pen (Lantus Solostar U-100 Insulin) methotrexate sodium 2.5 mg tablet 10 mg PO TH@0900 03/11/24 03/11/24 Unknown History Physical Exam 2 Vital Signs: Vital Signs: Last Vital Signs Temp 96.9 F 03/13/24 19:32 Pulse 59 03/13/24 19:32 Resp 16 03/13/24 19:32 BP 160/79 H 03/13/24 19:32 Pulse Ox 98 03/13/24 19:32 O2 Del Method Room Air 03/13/24 19:32 BMI result Body Mass Index 23.2 Const: General: cooperative HEENT: Head: Yes normal to inspection Face and sinus: Yes normal facial exam Mouth: Normal oral and palatal mucosa present Teeth and gingiva: d entition normal Eyes: General: appearance normal, both eyes and all related structures P upils: Equal, round and reactive pupils present Resp: Effort & Inspection: normal respiratory effort Cardio: Rate: regular rate Rhythm: regular rhythm GI: Palpation (GI): Soft to palpation and nontender : General: Yes no CVA tenderness Back/Spine/Pelvis: Back: no CVA tenderness Skin: General skin exam: no rashes or lesions noted Neuro: General: moves all extremities Cranial nerves: Yes Equal, round and reactive pupils present Extrem: General: Yes normal to inspection Psych: Appearance: grossly normal Results Labs 03/13/24 03:44 03/13/24 03:44 Labs: Short CBC 03/13/24 Range/Units 03:44 WBC 7.8 (4.8-10.8) X10*3/uL Hgb 11.8 L (14.0-18.0) g/dl Hct 35.0 L (42.0-52.0) % Plt Count 169 (160-400) X10*3/uL BMP 03/13/24 03:44 Sodium 137 Potassium 3.0 L D Chloride 108 Carbon Dioxide 20 L BUN 18 H Creatinine 0.97 Calcium 8.7 Microbiology Microbiology Results: Microbiology 03/11/24 16:10 Blood - Venous Blood Culture - Preliminary No growth after 48 hours. 03/11/24 15:38 Blood - Venous Blood Culture - Preliminary No growth after 48 hours. Assessment and Plan (1) Acute gastroenteritis: Status: Acute (2) Acute febrile illness: Status: Acute (3) Shigella enteritis: Status: Acute Plan He has shigella He has no known exposure Po Levaquin probably 10 d No rx for ETEColi
[2024-03-13 23:42] VITALS: BP 147/92; PULSE 73; RESP 20; TEMP 37.5; O2SAT 97
[2024-03-14] MEDS: 0.9 % Sodium Chloride Flush 3 ML SYRINGE IVFLUSH ×2 (00:28→08:57)
[2024-03-14 04:00] VITALS: BP 135/66; PULSE 62; RESP 20; TEMP 37.1; O2SAT 97
[2024-03-14 06:57] LABS: Hematocrit 38.4 % (42.0-52.0); Hemoglobin 12.8 g/dl (14.0-18.0); Mean Corpuscular HGB Conc 33.3 g/dl (31.0-36.0); Mean Corpuscular Hemoglobin 30.7 pg (27.0-33.0); Mean Corpuscular Volume 92.1 fL (80.0-98.0); Mean Platelet Volume 10.7 fL (9.4-12.4); Platelet Count 166 X10*3/uL (160-400); Red Blood Count 4.17 X10*6/uL (4.60-5.80); Red Cell Distribution Width 13.8 % (11.0-16.0)
[2024-03-14 07:27] LABS: Anion Gap 11 (12-20); Blood Urea Nitrogen 16 mg/dL (9-16); C Reactive Protein 14.19 mg/dL (< or = 0.50); Calcium 9.2 mg/dL (8.4-10.2); Carbon Dioxide 26 mmol/L (22-29); Chloride 108 mmol/L (96-108); Creatinine Clr Calc Pharmacy 83.5; Estimated Glomerular Filt Rate > 60; Glucose Random 95 mg/dL (60-115); Potassium 3.8 mmol/L (3.3-5.1); Sodium 141 mmol/L (135-145)
[2024-03-14 07:52] VITALS: BP 168/91; PULSE 64; RESP 20; TEMP 37; O2SAT 96
[2024-03-14 08:15] LABS: Glucose, Whole Blood 103 mg/dL (60-115)
[2024-03-14 08:55] VITALS: BP 168/91; PULSE 64; O2SAT 96
[2024-03-14] MEDS: Pantoprazole Sodium 40 MG/10 ML VIAL IVPUSH (08:56)
[2024-03-14] MEDS: Cholecalciferol (Vitamin D3) 25 MCG TABLET PO (08:57)
[2024-03-14] MEDS: Cyanocobalamin (Vitamin B-12) 1,000 MCG TABLET 1000 MCG PO (08:57)
[2024-03-14] MEDS: Aspirin Enteric Coated 81 MG TABLET.DR PO (08:57)
[2024-03-14] MEDS: sulfaSALAzine 500 MG TABLET PO (08:57)
[2024-03-14] MEDS: Atorvastatin Calcium 80 MG TABLET PO (08:57)
[2024-03-14] MEDS: Empagliflozin 25 MG TABLET PO (08:57)
[2024-03-14] MEDS: DULoxetine HCl 60 MG CAPSULE.DR PO (08:57)
[2024-03-14] MEDS: Folic Acid 1 MG TABLET PO (08:58)
[2024-03-14 09:08] LABS: HIV AB/AG Nonreactive (Nonreactive); HIV Num 1 0.11 S/CO (0.00-0.99)
--- NOTE | 2024-03-14 11:13 | P.F2F_ITS ---
Service Date Service Date: 03/14/24 Encounter Date of encounter: 03/14/24 Reasons for Services Signs and symptoms assessed: -Problem List: Gross Deconditioning, Impaired Gait Pattern, Impaired Safety ,Impaired Standing Balance, Impaired Transfer Ability Reason for physical therapy: home safety and mobility, therapeutic exercises, gait/transfer training, assess need for DME, ADL training and energy conservation MD Overseeing Care: Fany Kenyon Homebound: Leaving the home is medically contraindicated at this time without the asist of a device and/or another person due th the listed conditions above and below. Reason homebound: unsteady gait / fall risk, immunosuppression / infection risk and weakness related to hospital stay Homebound supporting statement: -Frequency/ Duration: 3-5x/week -Goals: Pt will perform sit<>stand transfers from varying surfaces independently Pt will ambulate > 150' mod I on multidirectional path safely -Treatment Plan: Bed Mobility, Transfer Training,Gait Training,Stair Training, Therapeutic Activities, Therapeutic Exercise,Neuro Re-education, Patient Education, Safety,Balance Certification: Based on the above findings, I certify that this patient is confined to the home and needs intermittent correction care, physical therapy and/or speech therapy, or continues to need occupational therapy. The patient is under my care, and I have initiated the establishment of the plan of care. The patient will be followed by a physician who will periodically review the plan of care. Time Spent With Patient Time: Total time managing care of this patient today ____ minutes.
--- NOTE | 2024-03-14 11:17 | P.DS_ITS ---
DS: Providers Provider Date of Service: 03/14/24 Date of admission: 03/11/24 22:30 Date of discharge: 03/14/24 Primary care physician: Unknown Physician Consults: 03/13/24 07:47 Consult to Infectious Diseases Routine Consulting Provider: [facility] [place] Infectious Disease Reason for consultation: shigellosis] DS: Diagnosis Discharge Diagnosis (1) Acute gastroenteritis: Status: Acute (2) Acute febrile illness: Status: Acute (3) Shigella enteritis: Status: Acute (4) Hypotension: Status: Acute (5) E coli infection: Status: Acute DS: Summary Hospital Course Hospital Course: From the history and physical by the admitting hospitalist, Avinash Live 03/11/24: Neville Pablo is a 68 years old man with past medical history significant for CAD s/p CABG, BPH and type 2 diabetes mellitus on insulin presents to the emergency department complaining of chills, dizziness and generalized weakness. He also complained of abdominal discomfort and multiple events of nonbloody watery diarrhea. He also has been nauseous and vomited once. He denied any headache, chest pain or shortness on breath. He did not report any acute urinary symptoms. Denied recent travel history or contact with ill people. Abdominal surgery history is remarkable for appendectomy. No recent use of antibiotics. Did not report alcohol abuse, tobacco smoking or illicit drug use. In the ED, he was initially found with fever (max 103). He was found to have hypotension of 78/37. Last blood pressure is 124/65. Blood workup is remarkable for mild leukocytosis, 11.0. There is minimal anemia and platelets are normal. Initial lactic acid was slightly elevated, 2.2, bicarb 19. No significant electrolyte imbalances. Creatinine is 0.96. LFTs are normal. Blood cultures were obtained. ECG showed NSR without acute ischemic changes. ED tx: Acetaminophen 975 mg p.o., NS 2 L bolus... ... Pt has SIRS criteria suspecting acute viral gastroenteritis. Will not administer IV antibiotics unless BC and stool test positive for bacterial infection. 68yo M with CAD s/p CABG, DM2 on insulin, BPH presenting with vomiting + diarrhea and found to be febrile and hypotensive through fluid-responsive. Lactic acidosis resolved with IV fluid hydration and holding metformin. Initially he was thought to have viral gastroenteritis but ultimately, he was found to have shigellosis [and various forms of E coli]. We consulted Infectio us Disease. He was started on levofloxacin for 3 days with resolution of fever and diarrhea. He was discharged on 7 more days of oral levofloxacin. Time Attestation Discharge Coordination Time (in mins): 35 Quality: Safe Use of Opioids Does Pt have an Active Cancer Diagnosis on the Problem List?: No Quality: Stroke Does the patient have a stroke diagnosis?: No Physical Exam Vital Signs: Vital Signs: Last Vital Signs Temp 98.6 F 03/14/24 07:52 Pulse 64 03/14/24 08:55 Resp 20 03/14/24 07:52 BP 168/91 H 03/14/24 08:55 Pulse Ox 96 03/14/24 08:55 O2 Del Method Room Air 03/14/24 07:52 BMI result Body Mass Index 23.2 Gen: in no acute distress HEENT: sclera anicteric, moist mucus membranes Neck: supple Lungs: clear to auscultation bilaterally Heart: regular rate and rhythm, no murmurs Abd: soft, non-tender, non-distended Ext: no edema Skin: warm/well-perfused Neuro: alert and oriented x3, no focal findings Psych: appropriate affect DS: Data Data Completed and Pending Completed studies during hospitalization [Text1]: Laboratory Results WBC 6.0 X10*3/uL (4.8-10.8) 03/14/24 06:46 RBC 4.17 X10*6/uL (4.60-5.80) L 03/14/24 06:46 Hgb 12.8 g/dl (14.0-18.0) L 03/14/24 06:46 Hct 38.4 % (42.0-52.0) L 03/14/24 06:46 MCV 92.1 fL (80.0-98.0) 03/14/24 06:46 MCH 30.7 pg (27.0-33.0) 03/14/24 06:46 MCHC 33.3 g/dl (31.0-36.0) 03/14/24 06:46 RDW 13.8 % (11.0-16.0) 03/14/24 06:46 Plt Count 166 X10*3/uL (160-400) 03/14/24 06:46 MPV 10.7 fL (9.4-12.4) 03/14/24 06:46 Immature Gran % (Auto) 0.7 % (0.0-0.4) H 03/11/24 15:38 Neut % (Auto) 89.6 % (45-73) H 03/11/24 15:38 Lymph % (Auto) 4.2 % (20-40) L 03/11/24 15:38 [place] % (Auto) 4.8 % (2-11) 03/11/24 15:38 Eos % (Auto) 0.2 % (0-4) 03/11/24 15:38 Baso % (Auto) 0.5 % (0-2) 03/11/24 15:38 Lymph # (Auto) 0.5 X10*3/uL (1.2-4.9) L 03/11/24 15:38 [place] # (Auto) 0.5 X10*3/uL (0.1-1.2) 03/11/24 15:38 Eos # (Auto) 0.0 X10*3/uL (0.0-0.4) 03/11/24 15:38 Baso # (Auto) 0.1 X10*3/uL (0.0-0.2) 03/11/24 15:38 Abs Immat Gran (auto) 0.08 X10*3/uL (0.00-0.03) H 03/11/24 15:38 Absolute Neuts (auto) 9.9 x10*3/uL (2.0-8.3) H 03/11/24 15:38 Absolute Nucleated RBC 0.000 X10*3/uL (0.0-0.012) 03/14/24 06:46 Nucleated RBC % (auto) 0.0 /100WBC (0.0-0.2) 03/14/24 06:46 Sodium 141 mmol/L (135-145) 03/14/24 06:46 Potassium 3.8 mmol/L (3.3-5.1) D 03/14/24 06:46 Chloride 108 mmol/L (96-108) 03/14/24 06:46 Carbon Dioxide 26 mmol/L (22-29) 03/14/24 06:46 Anion Gap 11 (12-20) L 03/14/24 06:46 BUN 16 mg/dL (9-16) 03/14/24 06:46 Creatinine 0.87 mg/dL (0.5-1.4) 03/14/24 06:46 Estim Creat Clear Calc 83.5 03/14/24 06:46 Estimated GFR > 60 03/14/24 06:46 POC Glucose 103 mg/dL (60-115) 03/14/24 08:03 Random Glucose 95 mg/dL (60-115) 03/14/24 06:46 Lactic Acid 2.2 mmol/L (0.5-2.0) H* 03/11/24 16:10 Lactic Acid F/U @ 2Hr 0.9 mmol/L (0.5-2.0) 03/11/24 18:45 Calcium 9.2 mg/dL (8.4-10.2) 03/14/24 06:46 Magnesium 1.7 mg/dL (1.6-2.6) 03/13/24 03:44 Total Bilirubin 0.5 mg/dL (0.0-1.0) 03/11/24 15:38 AST 33 U/L (5-37) 03/11/24 15:38 ALT 21 U/L (0-40) 03/11/24 15:38 Alkaline Phosphatase 69 U/L (39-117) 03/11/24 15:38 C-Reactive Protein 14.19 mg/dL (< or = 0.50) H 03/14/24 06:46 Total Protein 6.9 g/dL (6.5-8.0) 03/11/24 15:38 Albumin 3.9 g/dL (3.5-5.0) 03/11/24 15:38 Urine Color Dark Yellow 03/11/24 20:49 Urine Appearance Clear 03/11/24 20:49 Urine pH 5.5 (5.0-9.0) 03/11/24 20:49 Ur Specific [place] >= 1.030 (1.005-1.025) H 03/11/24 20:49 Urine Protein 30 (1+) mg/dL (Neg-Trace) H 03/11/24 20:49 Urine Glucose (UA) >=1000 mg/dL (Negative) H 03/11/24 20:49 Urine Ketones 15 mg/dL (Negative) 03/11/24 20:49 Urine Blood Negative (Negative) 03/11/24 20:49 Urine Nitrite Negative (Negative) 03/11/24 20:49 Ur Leukocyte Esterase Negative (Negative) 03/11/24 20:49 Urine RBC 0-2 /HPF (0-2) 03/11/24 20:49 Urine WBC 0-5 /HPF (0-5) 03/11/24 20:49 Ur Squamous Epith Cells 0-2 /HPF (0-2) 03/11/24 20:49 Urine Bacteria None Seen (None Seen) 03/11/24 20:49 Hyaline Casts 3-5 /LPF (0-2) 03/11/24 20:49 Stl C. cayetanensis PCR Not Detected (Not Detect.) 03/12/24 11:53 Stool Rotavirus A PCR Not Detected (Not Detect.) 03/12/24 11:53 Stl Adenov F 40/41 PCR Not Detected (Not Detect.) 03/12/24 11:53 Stool Astrovirus (PCR) Not Detected (Not Detect.) 03/12/24 11:53 Stool Campylobacter PCR Not Detected (Not Detect.) 03/12/24 11:53 Stool Cryptosporidium PCR Not Detected (Not Detect.) 03/12/24 11:53 Stl Sh Tox Pr E STEC PCR Not Detected (Not Detect.) 03/12/24 11:53 Stool E coli O157 PCR Not applicable (Not Detect.) 03/12/24 11:53 Stl Enterotoxigenic E PCR Detected (Not Detect.) A 03/12/24 11:53 Stool EPEC (PCR) Detected (Not Detect.) A 03/12/24 11:53 Stool EAEC (PCR) Detected (Not Detect.) A 03/12/24 11:53 Stl E. histolytica PCR Not Detected (Not Detect.) 03/12/24 11:53 Stool Giardia Lamblia PCR Not Detected (Not Detect.) 03/12/24 11:53 Stl P. shigelloides PCR Not Detected (Not Detect.) 03/12/24 11:53 Stool Salmonella PCR Not Detected (Not Detect.) 03/12/24 11:53 Stool Sapovirus (PCR) Not Detected (Not Detect.) 03/12/24 11:53 Stl Shigella/EIEC PCR Detected (Not Detect.) A 03/12/24 11:53 St Y.enterocolitica PCR Not Detected (Not Detect.) 03/12/24 11:53 Stool Vibrio (PCR) Not Detected (Not Detect.) 03/12/24 11:53 Stl Vibrio cholerae PCR Not Detected (Not Detect.) 03/12/24 11:53 Stl Norovirus GI/GII PCR Not Detected (Not Detect.) 03/12/24 11:53 C. difficile Tox B Gene NEGATIVE (Negative) 03/12/24 11:53 HIV 1&2 Ab/P24 Ag 4thGn Nonreactive (Nonreactive) 03/14/24 06:46 Influenza Type A (PCR) NEGATIVE (Negative) 03/11/24 16:18 Influenza Type B (PCR) NEGATIVE (Negative) 03/11/24 16:18 RSV RNA Qual (PCR) NEGATIVE (Negative) 03/11/24 16:18 SARS-CoV-2 RNA (RT-PCR) NEGATIVE (Negative) 03/11/24 16:18 Impressions Chest X-Ray 03/11/24 15:50 IMPRESSION: No acute finding. Head CT 03/11/24 16:49 IMPRESSION: No acute intracranial pathology. Abdomen/Pelvis CT 03/12/24 12:34 IMPRESSION: 1. Liquid stool throughout the colon consistent with diarrhea. 2. A small amount of loculated fluid in the right lower quadrant and a tiny amount of fluid in the left lateral conal fascia. 3. Possible area of discontinuity in the patient's penile prosthesis. Correlate with function. 4. Other incidental findings as described above. Fleischner guidelines were followed. Discharge Plan Discharge Anticipated Discharge Date/Time: 03/14/24 11:09 Patient Disposition: Home Health Service Discharge Diagnosis: Shigella gastroenteritis Referrals: Fany Kenyon MD [Physician] - 1 Week Physician,Unknown J [Primary Care Provider] - 1 Week Discharge Medications: New levofloxacin 500 mg Tablet 500 mg PO Q24H Qty: 7 0RF Continued sulfasalazine 500 mg tablet 1 tab PO BID aspirin 81 mg tablet,delayed release (DR/EC) 81 mg PO DAILY atorvastatin 40 mg tablet 80 mg PO DAILY duloxetine 60 mg capsule,delayed release(DR/EC) 60 mg PO DAILY methotrexate sodium 2.5 mg tablet 10 mg PO TH@0900 betamethasone, augmented 0.05 % ointment 1 appl topical BID PRN (Reason: Rash) Rx Instructions: apply to scalp folic acid 1 mg tablet 1 mg PO DAILY insulin glargine [Lantus Solostar U-100 Insulin] 100 unit/mL (3 mL) insulin pen 10 unit subcut DAILY Humira(CF) Pen 40 mg/0.4 mL pen injector kit 40 mg subcut Q2W Trulicity 4.5 mg/0.5 mL pen injector 4.5 mg subcut TU@0900 (DME) blood-glucose meter [FreeStyle Lite Meter] Kit See Rx Instructions .ROUTE .MEDSUPPLY Qty: 1 Rx Instructions: As directed Jardiance 25 mg tablet 25 mg PO DAILY cholecalciferol (vitamin D3) 25 mcg (1,000 unit) tablet 25 mcg PO DAILY cyanocobalamin (vitamin B-12) 1,000 mcg tablet extended release 1,000 mcg PO DAILY (DME) lancets [FreeStyle Lancets] 28 gauge misc See Rx Instructions topical .MEDSUPPLY Qty: 100 Rx Instructions: As directed (DME) FreeStyle Lite Strips Strip See Rx Instructions .ROUTE .MEDSUPPLY Qty: 10 Rx Instructions: As directed metformin 1,000 mg tablet 1,000 mg PO BIDWM zolpidem 10 mg tablet 10 mg PO BEDTIME PRN (Reason: Sleep) Discharge Orders: Discharge Order (Routine); Ordered 03/14/24 Ordered By: Gricelda Miranda Diet: Diabetic diet Activity on Discharge: As tolerated Stand Alone Forms: Patient Portal Discharge page Print Language: Kazakh Care Plan Goals: recovery from infection Health Concerns: Shigella gastroenteritis Plan of Treatment: levofloxacin 500 mg daily x 7 days Please follow up with your primary care doctor within 1 week. Return to the hospital if you experience recurrent or worsening symptoms. Assessment: See Discharge Summary. Discharge Date/Time: 03/14/24 11:29
--- NOTE | 2024-03-14 11:29 | MHC.CM.PN ---
Addendum entered by Kinjal Blanton 03/14/24 11:32: [facility] REFERRAL BROADCASTED TO DETERMINE IF PT WAS ACTIVE Original Note: PT CLEARED TO DC HOME TODAY WITH [facility] CM CALLED [facility] TO DETERMINE WHO THE PTS PCP AND [facility] WERE THEY INDICATED PT IS NO LONGER ACTIVE WITH THEM CM CALLED PTS SON, EMILY, WHO REPORTED HE IS AWARE OF THE PCP ISSUE HE CALLED THEM YESTERDAY EMILY WHO WAS CLEARLY AT WORK, WAS UNABLE TO PROVIDE FURTHER INFORMATION CM ATTEMPTED TO MEET WITH PT, HOWEVER PT ALREADY LEFT UNIT
== END 2024-03-14 11:29 | disposition home health service (06) | DRG 872 ==
LOC: HO.ED 21:14 → HO.EDOVER 22:39 → HO.IMC 03-13 07:58
PROVIDERS: Admitting Provider Internal Medicine; Emergency Provider Emergency Medicine; Visit Provider Family Medicine
DX: A41.9 Sepsis, unspecified organism (principal); E87.20 Acidosis, unspecified; A04.1 Enterotoxigenic Escherichia coli infection; A03.9 Shigellosis, unspecified; E86.0 Dehydration; E87.6 Hypokalemia; I25.10 Atherosclerotic heart disease of native coronary artery without angina pectoris; F39 Unspecified mood [affective] disorder; E86.1 Hypovolemia; N40.0 Benign prostatic hyperplasia without lower urinary tract symptoms; I95.9 Hypotension, unspecified; E11.9 Type 2 diabetes mellitus without complications; Z20.822 Contact with and (suspected) exposure to COVID-19; Z79.4 Long term (current) use of insulin; Z79.82 Long term (current) use of aspirin; Z79.84 Long term (current) use of oral hypoglycemic drugs; Z79.85 Long-term (current) use of injectable non-insulin antidiabetic drugs; Z79.620 Long term (current) use of immunosuppressive biologic; Z79.631 Long term (current) use of antimetabolite agent; Z79.899 Other long term (current) drug therapy
CPT/HCPCS: 0241U; 36415; 70450; 71045; 74177; 80048; 80053; 81001; 81003; 82947; 83605; 83735; 85025; 85027; 86140; 87040; 87389; 87493; 87507; 93005; 97162; 99285; C9113; J1650; J1956; J7120; Q9967

== ENCOUNTER → 2024-03-11 15:43 | Outpatient (BNV) | payer MEDICARE, MEDICAID, SELFPAY | PROVIDERS: Admitting Provider Internal Medicine; Emergency Provider Emergency Medicine; Visit Provider Internal Medicine Cardiovascular Disease | DX: R55 Syncope and collapse (principal); R94.31 Abnormal electrocardiogram [ECG] [EKG] | CPT/HCPCS: 93010 ==

== ENCOUNTER → 2024-03-11 22:30 | Outpatient (BNV) | payer MEDICARE, MEDICAID, SELFPAY | PROVIDERS: Admitting Provider Internal Medicine; Emergency Provider Emergency Medicine; Visit Provider Internal Medicine | DX: K52.9 Noninfective gastroenteritis and colitis, unspecified (principal); R50.9 Fever, unspecified; A03.9 Shigellosis, unspecified | CPT/HCPCS: 99222 ==

== ENCOUNTER → 2024-03-11 22:30 | Outpatient (BNV) | payer MEDICARE, MEDICAID, SELFPAY | PROVIDERS: Admitting Provider Internal Medicine; Emergency Provider Emergency Medicine; Visit Provider Internal Medicine | DX: R50.9 Fever, unspecified (principal) | CPT/HCPCS: 99223; 99232; 99239; G0180 ==

== ENCOUNTER 2024-03-31 14:00 | Outpatient (AMB) | payer MEDICARE, MEDICAID, SELFPAY ==
--- NOTE | 2024-03-31 14:15 | MHC.OFFVIS ---
Vital Signs 03/31/24 14:16 Height 5 ft 9 in Weight 165 lb BMI 24.4 BP 110/70 Blood Pressure Location Lt brachial Position Sitting Pulse 67 Pulse Source Pulse Oximeter Pulse Oximetry (%) 95 Oxygen Delivery Method Room Air Intake Visit Reasons: lorena Intake Note: pt is here as a new patient, he states he snores and feels tired in the morning. 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 Allergies No Known Allergies [No Known Allergies*] Allergy (Verified 03/31/24 15:10) Medication List - Last Reconciled 03/31/24 by Carol Addison MD adalimumab (Humira(CF) Pen) 40 mg subcut Q2W aspirin 81 mg PO DAILY atorvastatin 80 mg PO DAILY betamethasone, augmented 0.05 % 1 appl topical BID PRN blood sugar diagnostic (FreeStyle Lite Strips) As directed blood-glucose meter (FreeStyle Lite Meter kit) As directed cholecalciferol (vitamin D3) 25 mcg PO DAILY cyanocobalamin (vitamin B-12) ER 1,000 mcg PO DAILY dulaglutide (Trulicity) 4.5 mg subcut TU@0900 duloxetine 60 mg PO DAILY empagliflozin (Jardiance) 25 mg PO DAILY folic acid 1 mg PO DAILY insulin glargine (Lantus Solostar U-100 Insulin) 10 units subcut DAILY lancets (FreeStyle Lancets) As directed metformin 1,000 mg PO BIDWM methotrexate sodium 10 mg PO TH@0900 sulfasalazine 1 tab PO BID zolpidem 10 mg PO BEDTIME PRN Do you need a note to return to daycare/school/sports/work: No HPI HPI lorena: Details: THIS 68 YEARS OLD GENTLEMAN, IS BEING SEEN FOR THE 1ST TIME IN RELATION TO HIS SEVERE OBSTRUCTIVE SLEEP APNEA. HE STATES THAT ABOUT 2 YEARS AGO HE HAD A SLEEP STUDY, IN [place], ORDERED BY DR. CERDA, AND THEN HE WAS PROVIDED WITH THIS CPAP DEVICE, AND A NASAL MASK. HE USED IT ONLY FOR A FEW MONTHS, AND COULD NOT TOLERATE THE MASK, SO HE RETURNED THE MACHINE, HE CONTINUES TO HAVE THE SYMPTOMS WHICH INCLUDE, WAKING UP SEVERAL TIMES DURING THE NIGHT WITH GASPING LIKE FEELING, AND REMAINING SLEEPY DURING THE DAYTIME. ALSO REMAINS SOMEWHAT TIRED, HE IS USING ZOLPIDEM 10 MG AT BEDTIME HOPING THAT HE WILL SLEEP BETTER, BUT IN SPITE OF THIS HE REMAINS SLEEPY DURING THE DAYTIME. HE HAS NEVER BEEN OVERWEIGHT IN FACT HIS BMI IS 24. HE IS A CASE OF CHRONIC RHEUMATOID ARTHRITIS AND ALSO DIABETES MELLITUS COMPLICATED BY PERIPHERAL NEUROPATHY. HE HAS HISTORY OF CORONARY ARTERY DISEASE AND UNDERWENT CABG SURGERY ABOUT 2 YEARS AGO. DENIES ANY ACTIVE CARDIAC SYMPTOMS AT THIS TIME. [facility]LY [facility] Medical History (Updated 03/31/24 @ 15:25 by Carol Addison MD) LORENA (obstructive sleep apnea) Somnolence, daytime Retrognathia Shigella enteritis Elevated cholesterol BPH (benign prostatic hyperplasia) Osteoporosis Anxiety and depression CAD (coronary artery disease) HTN (hypertension) Erectile dysfunction Low back pain Diabetes mellitus Surgical History Hx of appendectomy History of ankle surgery H/O colonoscopy Hx of arthroscopic knee surgery Hx of CABG History of back surgery History of penile implant Social History Household Members: Family Patient Tobacco Use Status: Former Tobacco user Tobacco use type: Cigarette service: No Review of Systems Const All systems reviewed & are unremarkable except as noted in HPI and below Reports snoring (LOUD SNORING DURING THE NIGHT) and Reports weakness ENT Reports no additional complaints Card Denies chest pain, Denies irregular heart rhythm, Denies leg edema and Denies dyspnea Resp Denies cough, Denies dyspnea and Reports snoring (LOUD SNORING DURING THE NIGHT) GI Reports diarrhea (OFF AND ON) Reports no additional complaints Musc Reports arthralgias (HAS RHEUMATOID ARTHRITIS) Skin/Breast Reports system reviewed and no additional complaints, except as documented Neuro Reports paresthesias, Reports weakness and Reports other ( SYMPTOMS OF PERIPHERAL NEUROPATHY) Psych Reports no additional complaints Endo Reports other (DIABETES MELLITUS) Jaret/Lymph Reports no additional complaints Aller/Immun Reports no additional complaints Physical Exam Vital Signs: Last Vital Signs Pulse 67 03/31/24 14:16 BP 110/70 03/31/24 14:16 Pulse Ox 95 03/31/24 14:16 Oxygen Delivery Method Room Air 03/31/24 14:16 BMI result Body Mass Index 24.4 Const General: healthy appearing, comfortable, no acute distress, alert and awake Orientation/consciousness: patient oriented x3 HEENT Head: Yes normal to inspection General nose exam: No nasal polyps present and No nasal discharge present Face and sinus: Yes sinuses nontender Mouth: oropharynx normal (OROPHARYNX IS NARROW, MALLAMPATI CLASS 3) Teeth and gingiva: other (HE HAS A VERY PROMINENT OVERBITE/ RETROGANTHIA OF LOWER JAW.) Throat: Yes posterior oropharynx normal Eyes General: appearance normal, both eyes and all related structures Neck Neck: Yes normal visual inspection, Yes no lymphadenopathy, Yes trachea midline and Yes no JVD Thyroid: Thyroid normal Chest Chest palpation & inspection: abnormal inspection of the chest (MID STERNAL SURGICAL SCAR FROM CABG . SURGERY .) Resp Effort & Inspection: normal respiratory effort and no cough Auscultation: clear to auscultation bilaterally, no crackles and no wheezes Cardio Palpation: normal PMI Rate: regular rate Rhythm: regular rhythm Heart sounds: no gallops and no murmurs GI Palpation (GI): Soft to palpation, nontender, No hepatosplenomegaly present and no masses Auscultation: normal bowel sounds Back/Spine/Pelvis Thoracic/Lumbar Spine: thoracic and lumbar spine normal to inspection Skin General skin exam: no rashes or lesions noted Neuro General: patient oriented x3 and no focal motor deficits Cranial nerves: Yes CN's II-XII intact bilaterally Extrem General: Yes normal to inspection, Yes no clubbing, cyanosis or edema and Yes no calf tenderness Psych Appearance: grossly normal and well kempt Speech and movement: Normal speech and movement present Assessment & Plan Assessment & Plan (1) Retrognathia: Comment: THIS GENTLEMAN HAS A 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 THIS SEEMS TO BE THE MAIN CAUSE OF HIS SLEEP APNEA. Code(s): M26.19 - Other specified anomalies of jaw-cranial base relationship Category: Medical Plan: EXPLAINED TO HIM THIS CAUSE OF HIS SLEEP APNEA, ALSO STRESS THAT HE WOULD NEED DEFINITE TREATMENT FOR THIS PROBLEM. (2) Somnolence, daytime: Comment: HE HAS INSUFFICIENT SLEEP QUANTITY AND QUALITY AT NIGHT. SO HE HAS SIGNIFICANT DAYTIME SLEEPINESS. ESS= 15 /24 Code(s): R40.0 - Somnolence Category: Medical Plan: HE DEFINITELY NEEDS TREATMENT WITH NONINVASIVE , PRESSURE SUPPORT AT NIGHT ( CPAP ) MAY NEED A NEW SLEEP STUDY . WE ARE CHECKING WITH DME PROVIDER . (3) LORENA (obstructive sleep apnea): Comment: HE HAS HISTORY OF DIAGNOSIS OF OBSTRUCTIVE SLEEP APNEA, COULD NOT TOLERATE THE NASAL MASK, THEN WITHOUT TRYING THE OTHER KINDS OF INTERFACES HE JUST RETURNED HIS CPAP DEVICE. Code(s): G47.33 - Obstructive sleep apnea (adult) (pediatric) Category: Medical Plan: HE IS SYMPTOMATIC WITH POOR SLEEP AT NIGHT AND DAYTIME SLEEPINESS, HE NEEDS TO BE GOING BACK TO CPAP THERAPY. WE ARE GOING TO CHECK WITH DME, WHETHER HE CAN GET HIS CPAP DEVICE BASED ON THE ORIGINAL STUDY, OR WILL HE REQUIRE A NEW SLEEP STUDY. I THINK THIS GENTLEMAN NEEDED FULL EXPLANATION AND EDUCATION ABOUT HIS SLEEP APNEA CONDITION. AND NOW THAT HE UNDERSTANDS, HE IS GOING TO BE MORE SERIOUS ABOUT GIVING A GOOD TRIAL TO THE USE OF CPAP. Coding Level of Care Code New Pt Level 4 (77904) Diagnoses Retrognathia M26.19 Somnolence, daytime R40.0 LORENA (obstructive sleep apnea) G47.33
[2024-03-31 14:16] VITALS: BP 110/70; PULSE 67; O2SAT 95; BMI 24.4
== END 2024-03-31 15:09 | disposition home or self-care (01) ==
PROVIDERS: PCP Hospitalist; Visit Provider Internal Medicine
DX: M26.19 Other specified anomalies of jaw-cranial base relationship (principal); R40.0 Somnolence; G47.33 Obstructive sleep apnea (adult) (pediatric)
CPT/HCPCS: 99204

== ENCOUNTER → 2024-03-31 14:00 | Outpatient (BNVA) | payer MEDICARE, MEDICAID, SELFPAY | PROVIDERS: PCP Hospitalist; Visit Provider Internal Medicine | DX: G47.33 Obstructive sleep apnea (adult) (pediatric) (principal); R40.0 Somnolence; M26.19 Other specified anomalies of jaw-cranial base relationship | CPT/HCPCS: 99202 ==

== ENCOUNTER → 2024-04-30 13:42 | Outpatient (REF) | payer MEDICARE, SELFPAY | LOC: HO.SL 13:42 | PROVIDERS: PCP Hospitalist; Visit Provider Internal Medicine | DX: G47.33 Obstructive sleep apnea (adult) (pediatric) (principal); R40.0 Somnolence; M26.19 Other specified anomalies of jaw-cranial base relationship | CPT/HCPCS: 95806 ==

== ENCOUNTER → 2024-04-30 13:51 | Outpatient (BNV) | payer MEDICARE, SELFPAY | PROVIDERS: PCP Hospitalist; Visit Provider Internal Medicine | DX: R06.83 Snoring (principal) | CPT/HCPCS: 95806 ==

== ENCOUNTER 2024-05-12 14:23 | Outpatient (AMB) | payer MEDICARE, MEDICAID, SELFPAY ==
[2024-05-12 14:31] VITALS: BP 110/62; PULSE 63; O2SAT 96; BMI 25.2
--- NOTE | 2024-05-12 14:31 | MHC.OFFVIS ---
Vital Signs 05/12/24 14:31 Height 5 ft 9 in Weight 170 lb 13.732 oz BMI 25.2 BP 110/62 Blood Pressure Location Lt brachial Position Sitting Pulse 63 Pulse Source Pulse Oximeter Pulse Oximetry (%) 96 Oxygen Delivery Method Room Air Intake Visit Reasons: Obstructive sleep apnea Intake Note: pt is here to talk about sleep study results Allergies No Known Allergies [No Known Allergies*] Allergy (Verified 05/12/24 14:37) Medication List - Last Reconciled 05/12/24 by Carol Addison MD adalimumab (Humira(CF) Pen) 40 mg subcut Q2W aspirin 81 mg PO DAILY atorvastatin 80 mg PO DAILY betamethasone, augmented 0.05 % 1 appl topical BID PRN blood sugar diagnostic (FreeStyle Lite Strips) As directed blood-glucose meter (FreeStyle Lite Meter kit) As directed cholecalciferol (vitamin D3) 25 mcg PO DAILY cyanocobalamin (vitamin B-12) ER 1,000 mcg PO DAILY dulaglutide (Trulicity) 4.5 mg subcut TU@0900 duloxetine 60 mg PO DAILY empagliflozin (Jardiance) 25 mg PO DAILY folic acid 1 mg PO DAILY insulin glargine (Lantus Solostar U-100 Insulin) 10 units subcut DAILY lancets (FreeStyle Lancets) As directed metformin 1,000 mg PO BIDWM methotrexate sodium 10 mg PO TH@0900 sulfasalazine 1 tab PO BID zolpidem 10 mg PO BEDTIME PRN Do you need a note to return to daycare/school/sports/work: No HPI HPI Obstructive sleep apnea: Details: 68 years old gentleman, comes back to talk about his sleep study. He say is he is sleeping okay except for tossing and turning around, and gets awakened due to discomfort in the back and knees, a few times during the night. He is active during the daytime and denies any overly sleepiness. His weight is normal, and he stays on the slim side. Because he is diabetic his watches his diet very closely and also he is on Trulicity injections which help him to keep his weight down. He does have past history of obstructive sleep apnea but was not able to tolerate the CPAP and had returned the device. He has undergone home-based sleep study, which is basically normal. [facility] Medical History (Updated 05/12/24 @ 14:55 by Carol Addison MD) Snoring STEPHEN (obstructive sleep apnea) Somnolence, daytime Retrognathia Shigella enteritis Elevated cholesterol BPH (benign prostatic hyperplasia) Osteoporosis Anxiety and depression CAD (coronary artery disease) HTN (hypertension) Erectile dysfunction Low back pain Diabetes mellitus Surgical History Hx of appendectomy History of ankle surgery H/O colonoscopy Hx of arthroscopic knee surgery Hx of CABG History of back surgery History of penile implant Social History Household Members: Family Patient Tobacco Use Status: Former Tobacco user Tobacco use type: Cigarette service: No Review of Systems Const All systems reviewed & are unremarkable except as noted in HPI and below Reports snoring (LOUD SNORING DURING THE NIGHT) and Reports weakness ENT Reports no additional complaints Card Denies chest pain, Denies irregular heart rhythm, Denies leg edema and Denies dyspnea Resp Denies cough, Denies dyspnea and Reports snoring (LOUD SNORING DURING THE NIGHT) GI Reports diarrhea (OFF AND ON) Reports no additional complaints Musc Reports arthralgias (HAS RHEUMATOID ARTHRITIS) Skin/Breast Reports system reviewed and no additional complaints, except as documented Neuro Reports paresthesias, Reports weakness and Reports other ( SYMPTOMS OF PERIPHERAL NEUROPATHY) Psych Reports no additional complaints Endo Reports other (DIABETES MELLITUS) Jaret/Lymph Reports no additional complaints Aller/Immun Reports no additional complaints Physical Exam Vital Signs: Last Vital Signs Pulse 63 05/12/24 14:31 BP 110/62 05/12/24 14:31 Pulse Ox 96 05/12/24 14:31 Oxygen Delivery Method Room Air 05/12/24 14:31 BMI result Body Mass Index 25.2 Const General: healthy appearing, comfortable, no acute distress, alert and awake Orientation/consciousness: patient oriented x3 HEENT Head: Yes normal to inspection General nose exam: No nasal polyps present and No nasal discharge present Face and sinus: Yes sinuses nontender Mouth: oropharynx normal (OROPHARYNX IS NARROW, MALLAMPATI CLASS 3) Teeth and gingiva: other (HE HAS A VERY PROMINENT OVERBITE/ RETROGANTHIA OF LOWER JAW.) Throat: Yes posterior oropharynx normal Eyes General: appearance normal, both eyes and all related structures Neck Neck: Yes normal visual inspection, Yes no lymphadenopathy, Yes trachea midline and Yes no JVD Thyroid: Thyroid normal Chest Chest palpation & inspection: abnormal inspection of the chest (MID STERNAL SURGICAL SCAR FROM CABG . SURGERY .) Resp Effort & Inspection: normal respiratory effort and no cough Auscultation: clear to auscultation bilaterally, no crackles and no wheezes Cardio Palpation: normal PMI Rate: regular rate Rhythm: regular rhythm Heart sounds: no gallops and no murmurs GI Palpation (GI): Soft to palpation, nontender, No hepatosplenomegaly present and no masses Auscultation: normal bowel sounds Back/Spine/Pelvis Thoracic/Lumbar Spine: thoracic and lumbar spine normal to inspection Skin General skin exam: no rashes or lesions noted Neuro General: patient oriented x3 and no focal motor deficits Cranial nerves: Yes CN's II-XII intact bilaterally Extrem General: Yes normal to inspection, Yes no clubbing, cyanosis or edema and Yes no calf tenderness Psych Appearance: grossly normal and well kempt Speech and movement: Normal speech and movement present Results Reviewed Results Reviewed: Home-based sleep study, TOTAL SLEEP TIME AHI ONLY 1.6, SNORING, 24% OF THE SLEEP TIME. Assessment & Plan Assessment & Plan (1) Retrognathia: Comment: THIS GENTLEMAN HAS RETROGANTHIA OF THE LOWER JAW, THIS SEEMS TO BE THE MAIN CAUSE OF HIS MODERATE SNORING DURING SLEEP . Code(s): M26.19 - Other specified anomalies of jaw-cranial base relationship Category: Medical Plan: EXPLAINED ABOUT THE OVERBITE ( RETROGANTHIA ) THIS IS NOT A CORRECTABLE DEFECT BUT IT HAS NOT GOING TO CAUSE ANY BIG ISSUES. (2) Snoring: Comment: SLEEP STUDY IS NEGATIVE FOR SLEEP APNEA. BUT HE DOES HAVE MODERATE AMOUNT OF SNORING, WHICH IS CONTRIBUTED BY RETROGANTHIA OF THE LOWER JAW. Code(s): R06.83 - Snoring Category: Medical Plan: ADVISED TO SLEEP MOSTLY IN LATERAL POSITION IF POSSIBLE. THE AMOUNT OF SNORING IS NOT VERY SIGNIFICANT , Coding Level of Care Code Est Pt Level 3 (42837) Diagnoses Retrognathia M26.19 Snoring R06.83
== END 2024-05-12 14:47 | disposition home or self-care (01) ==
PROVIDERS: PCP Hospitalist; Visit Provider Internal Medicine
DX: M26.19 Other specified anomalies of jaw-cranial base relationship (principal); R06.83 Snoring
CPT/HCPCS: 99213

== ENCOUNTER → 2024-05-12 14:23 | Outpatient (BNVA) | payer MEDICARE, MEDICAID, SELFPAY | PROVIDERS: PCP Hospitalist; Visit Provider Internal Medicine | DX: M26.19 Other specified anomalies of jaw-cranial base relationship (principal); R06.83 Snoring | CPT/HCPCS: 99212 ==

== ENCOUNTER 2024-06-17 13:29 | Outpatient (AMB) | payer MEDICARE, MEDICAID, SELFPAY ==
--- NOTE | 2024-06-17 13:46 | A.OFFVIS_ITS ---
Intake Visit Reasons: 1Y Follow Up-Erectile Dys Intake Note: Patient is present for 1Y Follow Up/ERECRTILE DYS Urology Med:VITAMIN b-12 Antibiotic Allergy: None Blood Thinner: Aspirin Utility System Operator Required: No Allergies No Known Allergies [No Known Allergies*] Allergy (Verified 06/17/24 13:48) HPI Comments Details: Neville is a pleasant [place]ian male. He is a patient of Dr. Kenyon. He is seen for the following urologic conditions - erectile dysfunction Yearly follow-up Sufficient for usage Minimal issues 12 month follow-up Erectile dysfunction - malfunctioning penile pump Penile prosthetic placed 2015. Unable to use pump. Pump examined in office today Difficult to initiate compression of both pump bulb and lockout mechanism Pump was reset and inflation cycle completed Despite reset with cycle completion patient would like to pursue conversion to semi rigid prosthetic Revision prosthetic 10/19 2 piece Ambic[employer] [facility] Medical History (Updated 05/12/24 @ 14:55 by Carol Addison MD) Snoring STEPHEN (obstructive sleep apnea) Somnolence, daytime Retrognathia Shigella enteritis Elevated cholesterol BPH (benign prostatic hyperplasia) Osteoporosis Anxiety and depression CAD (coronary artery disease) HTN (hypertension) Erectile dysfunction Low back pain Diabetes mellitus Surgical History Hx of appendectomy History of ankle surgery H/O colonoscopy Hx of arthroscopic knee surgery Hx of CABG History of back surgery History of penile implant Social History Household Members: Family Patient Tobacco Use Status: Former Tobacco user Tobacco use type: Cigarette service: No Review of Systems Const Denies chills and Denies fever(s) Card Reports no additional complaints and Denies syncope Resp Denies cough GI Denies abdominal pain and Denies heartburn Reports as per HPI and Denies change in libido Neuro Denies syncope Psych Denies change in libido Endo Denies change in libido Physical Exam Const General: cooperative, healthy appearing, comfortable and no acute distress Orientation/consciousness: patient oriented x3 HEENT Face and sinus: Yes normal facial exam Mouth: moist mucous membranes Neck Neck: Yes normal visual inspection, Yes full ROM and Yes trachea midline Chest Chest palpation & inspection: normal inspection of the chest Resp Effort & Inspection: normal respiratory effort, able to speak in complete sentences and no respiratory distress GI Inspection: Yes normal to inspection Back/Spine/Pelvis Cervical Spine: normal cervical lordosis Thoracic/Lumbar Spine: thoracic and lumbar spine normal to inspection Skin General skin exam: no rashes or lesions noted Neuro General: patient oriented x3, gait normal, tone normal and moves all extremities Extrem General: Yes normal to inspection and Yes capillary refill normal Results AMB Urinalysis, Automated UA Leukoctes 0 Celina/uL Last Edit by REX Reilly on 06/17/24 14:04 UA Nitrite Negative Last Edit by Orquidea Layne CCM on 06/17/24 14:04 UA Urobilinogen 0.2 mg/dL Last Edit by REX Reilly on 06/17/24 14:0 4 UA Protein 0 mg/dL Last Edit by Orquidea Layne CCM on 06/17/24 14:04 UA pH 5.5 Last Edit by Orquidea Layne CCM on 06/17/24 14:04 UA Blood 0 Sergo/uL Last Edit by Orquidea Layne CCM on 06/17/24 14:04 UA Specific [place] 1.010 Last Edit by Orquidea Layne CCM on 06/17/24 14: 04 UA Ketone Negative Last Edit by REX Reilly on 06/17/24 14:04 UA Bilirubin 0 mg/dL Last Edit by Orquidea Layne CCM on 06/17/24 14:04 UA Glucose 1000 mg/dL Last Edit by Orquidea Layne [facility] on 06/17/24 14:04 Results Reviewed Results Reviewed: Laboratory Last Values Urine pH (Auto) 5.5 06/17/24 14:04 Specific [place] (Auto) 1.010 06/17/24 14:04 Urine Protein (Auto) 0 mg/dL 06/17/24 14:04 Glucose (UA)(Auto) 1000 mg/dL 06/17/24 14:04 Urine Ketones (Auto) Negative 06/17/24 14:04 Urine Blood (Auto) 0 Sergo/uL 06/17/24 14:04 Urine Nitrite (Auto) Negative 06/17/24 14:04 Urine Bilirubin (Auto) 0 mg/dL 08/20/24 14:04 Urine Urobilinogen (Auto) 0.2 mg/dL 06/17/24 14:04 Leukocyte Esterase (Auto) 0 Celina/uL 06/17/24 14:04 Assessment & Plan Assessment & Plan (1) Erectile dysfunction: Code(s): N52.9 - Male erectile dysfunction, unspecified Category: Medical Plan Twelve month follow-up Orders: Orders AMB Urinalysis Automated 06/17/24 Z13.9 - Encounter for screening, unspecified Patient Instructions: Imaging studies, laboratory and physical exam results were discussed and reviewed in detail. No major barriers to patient understanding were identified. An opportunity to ask questions regarding the treatment plan was provided. All questions were answered. The patient expressed understanding and agreement with the above treatment plan. The patient is aware they should contact our office by phone for worsening of their current condition or the appearance of new urologic symptoms. Compliance is encouraged with any medications and followup testing that is ordered. It is a privilege to participate in the urologic care of your patient. If you have any questions or concerns regarding treatment for the above conditions, or other urologic issues, please do not hesitate to contact me. The office telephone contact is [phone]. This note is constructed using voice recognition software. While every effort h as been made to ensure accuracy score caller errors may have been included. Yours sincerely, Dr Thony Lord MD, [facility] - Urology Providers of Expert, Compassionate Care for the Genitourinary System Coding Level of Care Code Est Pt Level 4 (16249) Diagnoses Erectile dysfunction N52.9
== END 2024-06-17 14:38 | disposition home or self-care (01) ==
PROVIDERS: PCP Hospitalist; Visit Provider Urology
DX: N52.9 Male erectile dysfunction, unspecified (principal)
CPT/HCPCS: 99214

== ENCOUNTER → 2024-06-17 13:29 | Outpatient (BNVA) | payer MEDICARE, MEDICAID, SELFPAY | PROVIDERS: PCP Hospitalist; Visit Provider Urology | DX: N52.9 Male erectile dysfunction, unspecified (principal); Z96.0 Presence of urogenital implants | CPT/HCPCS: 81003; 99212 ==

== ENCOUNTER 2025-03-03 14:31 | Outpatient (AMB) | payer MEDICARE, MEDICAID, SELFPAY ==
--- NOTE | 2025-03-03 14:41 | MHC.OFFVIS ---
Vital Signs 03/03/25 14:42 Height 5 ft 9 in Weight 169 lb 12.095 oz BMI 25.1 BP 120/70 Blood Pressure Location Lt brachial Position Sitting Pulse 71 Intake Visit Reasons: 1 yr follow up Intake Note: 1 year follow-up with ekg feeling good Gal[place] Hand Required: No Allergies No Known Allergies [No Known Allergies*] Allergy (Verified 06/17/24 13:48) Medication List - Last Reconciled 03/03/25 by Som Jimenez MD adalimumab (Humira(CF) Pen) 40 mg subcut Q2W aspirin 81 mg PO DAILY atorvastatin 80 mg PO DAILY betamethasone, augmented 0.05 % 1 appl topical BID PRN blood sugar diagnostic (FreeStyle Lite Strips) As directed blood-glucose meter (FreeStyle Lite Meter kit) As directed cholecalciferol (vitamin D3) 25 mcg PO DAILY cyanocobalamin (vitamin B-12) ER 1,000 mcg PO DAILY empagliflozin (Jardiance) 25 mg PO DAILY folic acid 1 mg PO DAILY lancets (FreeStyle Lancets) As directed metformin 1,000 mg PO BIDWM methotrexate sodium 10 mg PO TH@0900 sulfasalazine 1 tab PO BID tirzepatide (Mounjaro) mg subcut zolpidem 10 mg PO BEDTIME PRN HPI Comments Details: Neville comes for follow-up. He is having issues with diabetes management. Also complains of bilateral total neuropathic discomfort which is really concerning him. No clear exertional claudication symptoms. Denies any exertional chest pain. Does not exercise much. Denies any prolonged palpitation or lightheadedness. Denies any shortness of breath, orthopnea PND. Takes all his medications. No recent lipid panel. Takes all his medications regularly. No smoking [facility] Medical History (Updated 03/03/25 @ 16:08 by Som Jimenez MD) CAD (coronary artery disease) Snoring STEPHEN (obstructive sleep apnea) Somnolence, daytime Retrognathia Shigella enteritis Elevated cholesterol BPH (benign prostatic hyperplasia) Osteoporosis Anxiety and depression HTN (hypertension) Erectile dysfunction Low back pain Diabetes mellitus Surgical History Hx of appendectomy History of ankle surgery H/O colonoscopy Hx of arthroscopic knee surgery Hx of CABG History of back surgery History of penile implant Social History Household Members: Family Patient Tobacco Use Status: Former Tobacco user Tobacco use type: Cigarette service: No Review of Systems Const Denies chills, Denies fatigue, Denies fever(s), Denies frequent falls, Denies weakness, Denies weight gain and Denies weight loss ENT Denies dizziness Card Denies chest pain, Denies leg edema, Denies lightheadedness, Denies palpitations, Denies dyspnea, Denies dyspnea on exertion, Denies orthopnea and Denies other (loss of consciousness) Resp Denies cough, Denies dyspnea and Denies dyspnea on exertion GI Denies hematochezia and Denies change in stool character Musc Denies abnormal gait, Denies muscle weakness, Denies numbness, Denies radiating pain into limb and Denies tingling Neuro Denies Abnormal speech present, Denies abnormal gait, Denies dizziness, Denies frequent falls, Denies numbness, Denies tingling and Denies weakness Endo Denies fatigue and Denies palpitations Physical Exam Vital Signs: Last Vital Signs Pulse 71 03/03/25 14:42 BP 120/70 03/03/25 14:42 BMI result Body Mass Index 25.1 Const General: cooperative, comfortable, no acute distress, well developed, alert, awake, Physically active and well groomed Nutritional Appearance: average body habitus and well nourished Orientation/consciousness: patient oriented x3 Limitations: no limitations HEENT Head: Yes normocephalic and Yes atraumatic Neck Neck: Yes trachea midline, Yes supple and Yes no JVD Carotids: bruit bilateral Chest Chest palpation & inspection: other (Well-healed sternotomy scar) Resp Effort & Inspection: normal respiratory effort Auscultation: clear to auscultation bilaterally Cardio Jugular venous distension: no JVD Palpation: normal PMI Rate: regular rate Rhythm: regular rhythm Heart sounds: S1 normal heart sound present, S2 normal heart sound present, no click, no gallops, no murmurs and no rubs Bruits: carotid bruit bilaterally GI Auscultation: normal bowel sounds Skin General skin exam: no rashes or lesions noted Neuro General: patient oriented x3 and no focal motor deficits Speech: No Abnormal speech present Extrem General: Yes no clubbing, cyanosis or edema Psych Appearance: grossly normal Office Procedures EKG Details: EKG shows normal sinus rhythm with inferior infarct [id number], Complete Assessment & Plan Assessment & Plan (1) CAD (coronary artery disease): Comment: follows w/[facility] Cardiology Code(s): I25.10 - Atherosclerotic heart disease of [place] coronary artery without angina pectoris Category: Medical Qualifiers: Coronary Disease-Associated Artery/Lesion type: [place] artery [place] vs. transplanted heart: unspecified whether [place] or transplanted heart Associated angina: without angina Qualified Code(s): I25.10 - Atherosclerotic heart disease of [place] coronary artery without angina pectoris Plan: Diffuse and significant atherosclerotic disease with prior coronary artery bypass grafting 2023. No recurrent symptoms at current point time from cardiac perspective. He continues to have uncontrolled diabetes which needs to be more aggressively manage. Can consider therapy with GLP 1 antagonist in addition to his current therapy. Continue aggressive lipid modification, currently on full-dose atorvastatin. Advised lipid panel in near future. Will also suggest echocardiogram to assess for LV systolic and diastolic function. Continue aggressive blood pressure control which is currently well optimized on current therapy. Continue lifelong aspirin therapy. Follow up in the clinic in 1 year's time, sooner p.r.n.. Thank you for allowing me to partake in his care Orders: Orders CA echo transthoracic complete Today I25.10 - Atherosclerotic heart disease of [place] coronary artery without angina pectoris Lipid Panel Today I25.10 - Atherosclerotic heart disease of [place] coronary artery without angina pectoris Coding Level of Care Code Est Pt Level 4 (42996) Complex EM visit Add On G2211 Diagnoses Coronary artery disease involving [place] coronary artery without angina pectoris, unspecified whether [place] or transplanted heart I25.10 Coronary Disease-Associated Artery/Lesion type: [place] artery [place] vs. transplanted heart: unspecified whether [place] or transplanted heart Associated angina: without angina CPT Codes EKG - CPT: 20196-[id number], Complete ([id number])
[2025-03-03 14:42] VITALS: BP 120/70; PULSE 71; BMI 25.1
--- OUTSIDE RECORDS SUMMARY | 2025-03-03 15:51 | XMS_ITS ---
Author Organization [facility] Address [address] [place] [address] Care Team Providers Care Trade Marker Name Role Phone KATHY MARTINEZ Primary Care Provider REASON FOR VISIT Referral Encounters Encounter Location Date Provider Diagnosis [facility] [address] [place] [address] 12/12/2024 KATHY MARTINEZ Plan Of Treatment No Information Progress Notes * Edmundo HUMMELmDOB:[birth year] (69 yo M)Acc No.[id number]:12/12/2024 Patient:?Neville HUMMEL :1955???Age:69 Y???Sex:Male Address:[address] [place] [id number] * true * Date:? Generated for Brendon benson/Rene/eTransmitting on:?03/03/2025 03:51 PM EDT
--- OUTSIDE RECORDS SUMMARY | 2025-03-03 15:52 | XMS_ITS ---
Author Organization [facility] Address [address] [address] Care Team Providers Care Social Media Designer Name Role Phone KATHY MARTINEZ Primary Care Provider [phone] REASON FOR VISIT Podiatry referral Encounters Encounter Location Date Provider Diagnosis [facility] [address] [address] 11/13/2024 KATHY MARTINEZ Plan Of Treatment No Information Progress Notes * Edmundo HUMMELmDOB:[birth year] (69 yo M)Acc No.[id number]:11/13/2024 Patient:?Neville HUMMEL :1955???Age:69 Y???Sex:Male Address:[address] [place] [id number] * true * Date:? Generated for Brendon benson/Rene/eTransmitting on:?03/03/2025 03:52 PM EDT
--- OUTSIDE RECORDS SUMMARY | 2025-03-03 15:52 | XMS_ITS | Clinical Summary ---
Author Organization [facility] ity Address [address] [place] [id number] Care Team Providers Care Child Care Centre Director Name Role Phone Ko Kenyon MD Primary Care Provider [phone] Surgical History Surgery Date Site/Laterality Comments KNEE SURGERY PROCEDURE: HISTORICAL KNEE SURGERY ANKLE SURGERY PROCEDURE: HISTORICAL ANKLE SURGERY BACK SURGERY PROCEDURE: HISTORICAL BACK SURGERY APPENDECTOMY PROCEDURE: SD APPENDEC INDICATED PURPOSE OTH MAJOR PX NOT SPX COLONOSCOPY PROCEDURE: HISTORICAL COLONOSCOPY COLONOSCOPY PROCEDURE: HISTORICAL COLONOSCOPY; COMMENT: Reports colonoscopy several years ago told study was normal Medical History Medical History Date Comments Diabetes ([facility] V24, [facility] V28) DX:Diabetes ([facility]) Arthritis DX:Arthritis Scalp cyst DX:Scalp cyst Coronary artery disease DX:Coron jabari artery disease Hyperlipidemia DX:Hyperlipidemi a Esophageal reflux DX:Esophageal reflux Constipation DX:Constipation Bacterial infection due to H. pylori DX:Bacterial infection due to H. pylori Gastritis DX:Gastritis Hemorrhoids DX:Hemorrhoids Family History Medical History Relation Name Comments Diabetes Father Other: Other Father Diabetes Mother Other: Other Mother Diabetes Sister Relation Name Status Comments Father Mother Sister Social History Tobacco Use Types Packs/Day Years Used Date Smoking Tobacco: Never Smokeless Tobacco: Never Alcohol Use Standard Drinks/Week Comments No 0 (1 standard drink = 0.6 oz pur e alcohol) Sex and Gender Information Value Date Recorded Sex Assigned at Not on file Legal Sex Male 9:35 AM EST Gender Identity Not on file Sexual Orientation Not on file Obstetrics History Last Filed Vital Signs Vital Sign Reading Time Taken Comments Blood Pressure 130/70 07/31/2024 2:07 PM EDT Pulse 72 07/31/2024 2:07 PM EDT Temperature - - Respiratory Rate - - Oxygen Saturation - - Inhaled Oxygen Concentration - - Weight 78.5 kg (173 lb) 07/31/2024 2:07 PM EDT Height 175.3 cm (5' 9 ) 07/31/2024 2:07 PM EDT Body Mass Index 25.55 07/31/2024 2:07 PM EDT Plan of Treatment Upcoming Encounters Date Type Department Care Team (Late st Contact Info) Description 03/11/2025 2:00 PM EDT Consult Orthopedic Surgery - [place] [address] [facility] [address] [place] [id number] Shine Quiroz, PALLAVI 175 [facility] [address] [place] [address] 07/01/2025 1:30 PM EDT Ancillary Procedure [facility] [address] [facility] 101 [place] [address] 07/31/2025 1:00 PM EDT Office Visit Vascular Surgery - [place] [address] [facility] [address] [place] [address] Robson Cihn MD 300 [facility] [address] [place] [address] Health Maintenance Due Date Last Done Comments Diabetes: Annual GFR (Glomer ular Filtration Rate) 1955 COVID-19 Vaccine (#1) 1962 Diabetes: Annual Foot Exam 1967 Diabetes: Annual Retina Eye Exam 1967 DTaP,Tdap,and Td Vaccines (1 - Tdap) 1976 Pneumococcal Vaccine: 50+ Ye ars (1 of 2 - PCV) 1976 Zoster Vaccines (1 of 2) 2007 Cholesterol Screening (Lipid Panel) 10/07/2022 Colorectal Cancer Screening: Colonoscopy 10/07/2022 Depression Screening 10/07/2022 Falls Risk Assessment 10/07/2022 Hepatitis C Screening 10/07/2022 Medicare Annual Wellness Visit 10/07/2022 Social Influencers of Health Screening 10/07/2022 Hypertension/CHF/CAD Annual BMP Blood Test 10/08/2022 Diabetes: Annual Urine Albumin-Creatinine Ratio (uACR) 10/12/2022 Diabetes: Blood Sugar Contro l Test (HGBA1C) 10/12/2022 Influenza Vaccine (Season Ended) 2025 RSV Immunization Adult Patie nts (1 - 1-dose 75+ series) 2032 HIB Vaccines Aged Out No longer eligi ble based on patient's age to complete this topic HPV Vaccines Aged Out No longer eligi ble based on patient's age to complete this topic Hepatitis A Vaccines Aged Out No long er eligible based on patient's age to complete this topic Hepatitis B Vaccines Aged Out No long er eligible based on patient's age to complete this topic IPV Vaccines Aged Out No longer eligi ble based on patient's age to complete this topic MMR Vaccines Aged Out No longer eligi ble based on patient's age to complete this topic Meningococcal ACWY Vaccine Aged Out N o longer eligible based on patient's age to complete this topic Meningococcal B Vaccine Aged Out No l onger eligible based on patient's age to complete this topic RSV Immunization Patients Un dolores 20 months Aged Out No longer eligible b ased on patient's age to complete this topic Varicella Vaccines Aged Out No longer eligible based on patient's age to complete this topic Insurance MEDICAID - [place] [employer] MEDICARE Care Teams Child Care Centre Director Relationship Specialty Start Date End Date Ko Kenyon MD [address] [place] [id number] PCP - General Internal Medicine 06/10/21
--- OUTSIDE RECORDS SUMMARY | 2025-03-03 15:52 | XMS_ITS | Continuity of Care Document ---
Author Organization [facility] [address] [place] [address] Phone [phone] Care Team Providers Care Court Commissioner Name Role Phone Ko Kenyon M.D. Care Team Information Receive r [phone] Problems Active Problems Provider Date Essential hypertension Faisal Osuna M.D. O nset: 11/27/2023 Hyperlipidemia Faisal Osuna M.D. Onset: 0 11/27/2023 Type 2 diabetes mellitus Faisal Osuna M.D. Onset: 11/27/2023 Anxiety Faisal Osuna M.D. Onset: 0 11/27/2023 H/O: depression Faisal Osuna M.D. Onset: 0 11/27/2023 Coronary artery bypass graft Faisal Osuna M.D. Onset: 12/10/2024 Inflammatory polyarthropathy Faisal Osuna M.D. Onset: 12/10/2024 Social History Type Date Description Comments Sex Unknown ETOH Use Rarely consumes alcohol Tobacco Use Start: Unknown End: Unknown Patient is a former smoker Allergies and adverse reactions Description No Known Drug Allergies Medications Active Medications SIG Qnty Indications Order ing Provider Date Mounjaro7.5mg/0.5ML Solution Auto-Inject inject 0.5ml every week 6ml Faisal Osuna M.D. 09/03/2024 [id number] Capsules 2 tablets by mouth before bed 180caps Faisal Osuna M.D. 06/03/2024 Freestyle [place] 2/Sensor/Flash Glucose Monitoring [id number] Misc 1 sensor to skin every fourteen days as directed 6units Faisal Osuna M.D. 11/27/2023 Methotrexate Sodium2.5mg Tablets Take 4 Tablets By Mouth Once Per Week Call To Schedule Labs Luke Nelson [id number] Tablets Take 1 Tablet By Mouth Every Day For 90 Days Ko Kenyon M.D. D-1000 Extra Aaslpvkz33vgb (1000 Ut) Tablets Take 1 Tablet By Mouth Every Day For 90 Days Ko Kenyon M.D. Metformin [id number] Tablets Take 1 Tablet By Mouth Twice A Day With A Meal For 90 Days Ko Kenyon M.D. Duloxetine [id number] Caps DR Part Take One Capsule By Mouth Every Day After Breakfast Unknown Aspirin Low Mges07zi Tablets DR Take 1 Tablet By Mouth Every Day For 90 Days Ko Kenyon M.D. Zolpidem Yshtxkmx59he Tablets Take One Tablet By Mouth Every Day AT Bedtime as Needed Unknown History Medications Kgedirky3co/0.5ML Solution Pen-Inject 1 injection every week as directed 2ml Faisal Osuna M.D. 06/03/2024 - 09/03/2024 Vital Signs Date Vital Result Comment 12/10/2024 1:40pm BP Systolic 110 mmHg BP Diastolic 60 mmHg Heart Rate 72 /min Height 69 inches 5'9 Weight 171.25 lb BMI (Body Mass Index) 25.3 kg/m2 Results Test Acquired Date Facility Test Result H/L Range N ote Hemoglobin A1c 12/10/2024 Inhouse Hemoglobin A1c 6.5% Glucose Fingerstick 12/10/2024 Inhouse Glucose Fingerstick 130 Hemoglobin A1c 09/03/2024 Inhouse Hemoglobin A1c 6.5% Glucose Fingerstick 09/03/2024 Inhouse Glucose Fingerstick 111 Hemoglobin A1c 06/03/2024 Inhouse Hemoglobin A1c 6.5% Glucose Fingerstick 06/03/2024 Inhouse Glucose Fingerstick 159 Hemoglobin A1c 02/29/2024 Inhouse Hemoglobin A1c 5.7% Glucose Fingerstick 02/29/2024 Inhouse Glucose Fingerstick 152 Hemoglobin A1c 11/27/2023 Inhouse Hemoglobin A1c 6.2% Glucose Fingerstick 11/27/2023 Inhouse Glucose Fingerstick 153 Procedures Date Code Description Status 02/26/2024 NSHOWOFF No Show Office Visit Complet ed Medical Devices Description No Information Available Encounters Type Date Location Provider Dx Diagnosis Office Visit 12/10/2024 1:30p Main Office Faisal Osuna M.D. E11.8 Type 2 diabetes mellitus with unspecified complications E11.40 Type 2 diabetes juan luis itus with diabetic neuropathy, unsp Assessments Date Code Description Provider 12/10/2024 E11.8 Complication due to diabetes mellitus Faisal Osuna M.D. 12/10/2024 E11.40 Diabetic peripheral neuropat hy Faisal Osuna M.D. Plan of Treatment Future Appointment(s):* 04/29/2025 10:45 am - Faisal Osuna M.D. at Main Office 06/03/2024 - Faisal Osuna M.D.* E11.8 Complication due to diabetes mellitus * E11.40 Diabetic peripheral neuropathy * Functional Status Description No Information Available Mental Status Description No Information Available Referrals Description No Information Available
--- OUTSIDE RECORDS SUMMARY | 2025-03-03 15:52 | XMS_ITS ---
Author Organization [facility] Address [address] [facility] [address] [place] [address] Care Team Providers Care Rn Occupational Health Name Role Phone KATHY MARTINEZ Primary Care Provider REASON FOR VISIT VM to R/S Encounters Encounter Location Date Provider Diagnosis [facility] [address] [facility] [address] [place] [address] 01/14/2025 KATHY MARTINEZ Plan Of Treatment No Information Progress Notes * Edmundo HUMMELmDOB:[birth year] (69 yo M)Acc No.[id number]:01/14/2025 Patient:?Neville HUMMEL :1955???Age:69 Y???Sex:Male Address:[address] [place] [phone] * true * Date:? Generated for Brendon benson/Rene/eTransmitting on:?03/03/2025 03:52 PM EDT
--- OUTSIDE RECORDS SUMMARY | 2025-03-03 15:52 | XMS_ITS | Patient Health Record ---
Author Organization [facility] Address [address] [place] [address] Care Team Providers Care Gaming Department Head Name Role Phone MICHELLE KATHY Primary Care Provider David Kofi Unavailable [phone] Josh Diaz Unavailable [phone] Allergies No Known Allergies Reason For Referral Reason Evaluation and manag ement (Dr. Hurley) Diagnosis 1 Obstructive sleep ap ryan (adult) (pediatric) (G47.33) Referring Provider First Name Josh Referring Provider Last Name Emily Referred Provider Specialty Pulmonary Di seases General Notes Referral faxed - Dep t will call patient for scheduling.Berta Latraya 03/10/2024 03:07:40 PM > Referral Priority Routine Reason Foot exam Diagnosis 1 Type 2 diabetes juan luis itus with unspecified complications (E11.8) Referral Organization [facility] ter Referring Provider First Name KATHY Referring Provider Last Name MICHELLE Referring Provider Speciality Internal M edicine Referred Provider Specialty Podiatry General Notes Referral faxed to [facility]. Please call patient to schedule.Rachele Crystal 11/26/2024 10:31:23 AM > Referral Priority Routine Medications Medication SIG (Take, Route, Frequency, Duration) Notes Start Date End Date Status FreeStyle Lite - as directed once a d ay for 30 days 06/06/2022 Active Tacrolimus 0.1 % as directed Externally Not-Taking DULoxetine HCl 60 MG 1 capsule Orally On ce a day for 30 day(s) Active Aspirin Low Dose 81 MG TAKE 1 TABLET BY MOUTH EVERY DAY FOR 90 DAYS for 90 Active FreeStyle Lite Test - 1 strip DAW1 Dx: E 11.8 In Vitro 4 times a day for 90 days 10/26/2021 Active FreeStyle Lancets - 1 lancet 1 strip KATHLEEN 1 Dx: E11.8 once a day for 90 days 10/26/2021 Active Zolpidem Tartrate 10 MG 1 tablet at bedt kalyan as needed Orally Once a day Active Humira 40 MG/0.8ML 0.8 mL Subcutaneous Active Mounjaro 2.5 MG/0.5ML 2.5 MG Subcutaneou s once weekly for 30 days 03/19/2024 Not-Taking sulfaSALAzine 500 MG 1 tablet Orally Onc e a day Active Accu-Chek Guide - USE TO CHECK BLOOD SUGAR 4 TIMES A DAY DIRECTED for 75 Active Methotrexate 2.5 MG as directed Orally Active Jardiance 25 MG TAKE 1 TABLET BY CHRISTINE TH EVERY DAY FOR 90 DAYS for 90 Active Atorvastatin Calcium 40 MG 1 tablet Oral ly Once a day for 90 days 09/02/2020 Active Rollator Ultra-Light - as directed R26.8 9 for 365 days 08/05/2024 Active Ozempic (2 MG/DOSE) 8 MG/3ML 2 mg Subcutaneous once a week for 30 days Active Topiramate ER 25 MG 1 capsule Orally Onc e a day for 30 day(s) Not-Taking metFORMIN HCl 1000 MG TAKE 1 TABLET BY M OUTH TWICE A DAY WITH A MEAL FOR 90 DAYS for 90 Active Omeprazole 20 MG 1 capsule 30 minutes before morning meal Orally Once a day Not-Taking Baclofen 10 MG/20ML as directed Intrathecal Not-Taking glipiZIDE ER 10 MG 1 tablet with food Orally twice a day for 90 days Not-Taking traZODone HCl 50 MG 1 tablet at bedtime Orally Once a day for 30 days Active Vitamin D3 25 MCG (1000 UT) 1 tablet Orally Once a day for 90 days 09/22/2020 Active Gabapentin 300 MG 2 capsule Orally AT BED TIME for 30 days Active Cyclobenzaprine HCl 10 MG 1 tablet Orall y three times a day Not-Taking Docusate Sodium 100 MG 1 capsule as need ed Orally Once a day for 90 days 12/08/2020 Active Fluocinonide 0.05 % 1 application Externally Twice a day Not-Takin g Accu-Chek FastClix Lancets - three times a day Dx: E11.8 for 90 days 06/05/2023 Active Accu-Chek Guide w/Device as directed for 30 days 05/30/2023 Active Trulicity 4.5 MG/0.5ML 4.5mg Subcutaneou s once a week for 90 days Active BD Pen Needle Alysha U/F 32G X 4 MM 1 needle with Lantus once a day for 90 days 06/06/2023 Active Accu-Chek Briana Plus w/Device as directed for 30 days 05/07/2023 Active Accu-Chek Briana Plus - 1 strip DX: E11.8 In Vitro four times daily for 90 days 05/07/2023 Active Blood Glucose Test Strips 333 - as directed test 4X a day to check BS In Vitro 4x a day for 90 days 05/07/2023 Active Vitamin B-12 1000 MCG TAKE 1 TABLET BY M OUTH EVERY DAY FOR 90 DAYS for 90 Active Lantus SoloStar 100 UNIT/ML 5 units Subcutaneous once a day for 90 days Active Immunizations Vaccine Route Administration Date Status Comme nts COVID Unknown 09/29/2021 Administered booster COVID 19 Pfizer Unknown 12/13/2020 Administered COVID 19 Pfizer Unknown 01/04/2021 Administered COVID 19 Pfizer Unknown 10/04/2021 Administered Hep B, adult dosage, for intramuscular use Unknown 02/20/2019 Administered Hep B, adult dosage, for intramuscular use Unknown 04/02/2019 Administered Hep B, adult dosage, for intramuscular use Unknown 08/28/2019 Administered Pneumococcal conjugate PCV 13 Unknown 08/08/2016 Admini stered Pneumococcal polysaccharide PPV23 Unknown 08/14/2017 Ad ministered Social History Tobacco Use: Social History Observation Description Date Details (start date - stop date) Former Smoker NA - NA Tobacco Use/Smoking Question Answer Notes Are you a former smoker How long has it been since y ou last smoked? 6-12 months Additional Findings: Tobacco User Light cigarett e smoker ((1-9 cigs/day) Problems Problem Type SNOMED Code ICD Code Onset Dates Problem Status W/U Status Risk Notes Problem Pernicious anemia (89479445) Vitamin B12 deficiency anemia due to intrinsic factor deficiency (D51.0) Active confirmed Problem Diabetic neuropathy (114656007) Diabetes mellitus due to underlying condition with diabetic neuropathy, unspecified (E08.40) Active confirmed Problem Disorder due to type 2 diabetes mellitus (082124269) Type 2 diabetes mellitus with unspecified complications (E11.8) Active confirmed Problem Type II diabetes mellitus without complication (577393535) Type 2 diabetes mellitus without complications (E11.9) Active confirmed Problem Mixed hyperlipidemia (825405615) Mixed hyperlipidemia (E78.2) Active confirmed Problem Moderate recurrent major depression (35861961) Major depressive disorder, recurrent, moderate (F33.1) Active confirmed Problem Generalized anxiety disorder (32008014) Generalized anxiety disorder (F41.1) Active confirmed Problem Obstructive sleep apnea syndrome (disorder) (65308233) Obstructive sleep apnea (adult) (pediatric) (G47.33) Active confirmed Problem 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 (052911802) Atherosclerosis of coronary artery bypass graft(s) without angina pectoris (I25.810) Active confirmed Problem Carotid artery occlusion (501868039) Occlusion and stenosis of unspecified carotid artery (I65.29) Active confirmed Problem Inflammatory polyarthropathy (839080328) Inflammatory polyarthropathy (M06.4) Active confirmed Problem Osteoarthritis (730941256) Polyosteoarthritis , unspecified (M15.9) Active confirmed Problem Dysphagia (89703428) Dysphagia, unspecified (R13.10) Active confirmed Problem Abnormal gait (08491658) Other abnormalities of gait and mobility (R26.89) Active confirmed Problem Essential hypertension (48575314) Essential (primary) hypertension (I10) Active confirmed Problem Benign prostatic hypertrophy without outflow obstruction (998692449) Benign prostatic hyperplasia without lower urinary tract symptoms (N40.0) Active confirmed Vital Signs Heart Rate 74 /min 08/05/2024 Temperature 98.1 degrees Fahrenheit 08/05/2024 Oximetry 96 % 08/05/2024 Blood pressure diastolic 72 mm Hg 08/05/2024 Height 69 in 08/05/2024 Blood pressure systolic 116 mm Hg 08/05/2024 Weight 174 lbs 08/05/2024 BMI 25.69 kg/m2 08/05/2024 Encounters Encounter Location Date Provider Diagnosis [address] [address] 03/10/2024 Borisbillmattie Sinclairashwini Mixed hyperlipidemia E78.2 ; Diabetes mellitus due to underlying condition with diabetic neuropathy, unspecified E08.40 ; Type 2 diabetes mellitus with unspecified complications E11.8 and Atherosclerosis of coronary artery bypass graft(s) without angina pectoris I25.810 [facility] [address] [place] [address] 08/05/2024 Kofi Hernandez Type 2 diabetes mellitus with unspecified complications E11.8 ; Encounter for general adult medical examination without abnormal findings Z00.00 ; Essential (primary) hypertension I10 ; Atherosclerosis of coronary artery bypass graft(s) without angina pectoris I25.810 ; Benign prostatic hyperplasia without lower urinary tract symptoms N40.0 ; Obstructive sleep apnea (adult) (pediatric) G47.33 ; Diabetes mellitus due to underlying condition with diabetic neuropathy, unspecified E08.40 and Generalized anxiety disorder F41.1 [facility] [address] [place] [address] 03/12/2024 [facility] [address] [place] [address] 05/09/2024 Josh Diaz Type 2 diabetes mellitus without complications E11.9 [facility] [address] [place] [address] 05/15/2024 [facility] Type 2 diabetes mellitus without complications E11.9 [facility] [address] [place] [address] 06/17/2024 [facility] [address] [place] [address] 08/05/2024 [facility] [address] [place] [address] 09/15/2024 [facility] [address] [place] [address] 11/03/2024 [facility] [address] [place] [address] 11/13/2024 [facility] [address] [place] [address] 12/12/2024 [facility] [address] [place] [address] 01/14/2025 KATHY MARTINEZ Assessments Encounter Date Diagnosis (ICD Code) Assessment Notes Treatment Notes Treatment Clinical Notes Section Notes 05/09/2024 Type 2 diabetes mellitus without complications (ICD-10 - E11.9) 03/10/2024 Mixed hyperlipidemia (ICD-10 - E78.2) Mr. Sullivan is a 68-year-old Chinese-speaking gentleman with DM type II, CAD s/p CABG X5 at [facility] 2020, PRICE, polyosteoarthritis and cervical radiculopathy here for follow up. Plan is as follows: Blood pressure well controlled, not managed on BP medication. Albumin/Creatinine ratio is WNL. 2. Type II diabetes mellitus with neuropathy.: - Recent A1C is 5.8. F/up with [employer]. Lantus Adjustment has been made to be 5 Units, otherwise continue the same regimen. - He has seen his regulatory attorney in the past 1 year. He sees podiatry Dr Beebe, last appt 2 months ago. Foot care discussed. - Recheck A1C, CMP. 3. CAD: He is asymptomatic. He is on right medications. He sees a Plastic Boat Patcher at [place]. Stress test to be scheduled for regular check-ups. 4. Occlusion of Left carotid stenosis: - Patient is currently on ASA and Statins. Lipid panel is wnl. F/up with Dr. Wade, has an upcoming appt to discuss further 5. Hyperlipidemia: Last lipid panel within normal limits. Continue Atorvastatin 40 MG at night. - Recheck lipid panel 6. PRICE: - Mood stable on current regimen. He sees Dr. Jamil [id number]. 7. Polyosteoarthritis. He uses a cane to walk. Dr. Mccollum. - He needs help with transferring, showering, toileting, dressing and daily activities like transportation, grocery shopping, laundry, going to medical appointments, picking up prescription and medication supervision. He can take Gabapentin 300 MG twice a day at night. 8. Constipation: - Follows up with [facility]. - Screening C-scope is due, referral has been set-up. 89. STEPHEN: - Does not tolerate Ci-pap, doesn't see Dr. Tellez anymore due to insurance changes. Need a referral to Pulm. Blood work reviewed with patient and questions answered. Screening blood work before next appointment. General health concerns discussed with patient. Scribe services used to formulate this note under HIPAA compliance and under [place] law mandated for scribe services. Patient aware of service. Verbal consent and written consent taken from the patient. Patient understands and verbalizes understanding of the scribes services and all questions answered regarding scribes services. Patient agrees to use of scribes services. 05/15/2024 Type 2 diabetes mellitus without complications (ICD-10 - E11.9) 03/10/2024 Diabetes mellitus due to underlying condition with diabetic neuropathy, unspecified (ICD-10 - E08.40) Mr. Sullivan is a 68-year-old Chinese-speaking gentleman with DM type II, CAD s/p CABG X5 at [place] [address], PRICE, polyosteoarthritis and cervical radiculopathy here for follow up. Plan is as follows: Blood pressure well controlled, not managed on BP medication. Albumin/Creatinine ratio is WNL. 2. Type II diabetes mellitus with neuropathy.: - Recent A1C is 5.8. F/up with [employer]. Lantus Adjustment has been made to be 5 Units, otherwise continue the same regimen. - He has seen his regulatory attorney in the past 1 year. He sees podiatry Dr Beebe, last appt 2 months ago. Foot care discussed. - Recheck A1C, CMP. 3. CAD: He is asymptomatic. He is on right medications. He sees a Plastic Boat Patcher at [place]. Stress test to be scheduled for regular check-ups. 4. Occlusion of Left carotid stenosis: - Patient is currently on ASA and Statins. Lipid panel is wnl. F/up with Dr. Wade, has an upcoming appt to discuss further 5. Hyperlipidemia: Last lipid panel within normal limits. Continue Atorvastatin 40 MG at night. - Recheck lipid panel 6. PRICE: - Mood stable on current regimen. He sees Dr. Jamil [id number]. 7. Polyosteoarthritis. He uses a cane to walk. Dr. Mccollum. - He needs help with transferring, showering, toileting, dressing and daily activities like transportation, grocery shopping, laundry, going to medical appointments, picking up prescription and medication supervision. He can take Gabapentin 300 MG twice a day at night. 8. Constipation: - Follows up with [facility] GI. - Screening C-scope is due, referral has been set-up. 89. STEPHEN: - Does not tolerate Ci-pap, doesn't see Dr. Tellez anymore due to insurance changes. Need a referral to Pulm. Blood work reviewed with patient and questions answered. Screening blood work before next appointment. General health concerns discussed with patient. Scribe services used to formulate this note under HIPAA compliance and under [place] law mandated for scribe services. Patient aware of service. Verbal consent and written consent taken from the patient. Patient understands and verbalizes understanding of the scribes services and all questions answered regarding scribes services. Patient agrees to use of scribes services. 08/05/2024 Type 2 diabetes mellitus with unspecified complications (ICD-10 - E11.8) Mr. 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 Insulin-dependent diabetes mellitus, patient reports he has discontinued Trulicity and was started on Lantus HbA1c was checked and it was 6.6 as compared to 5.8 previously discussed with patient about strict diet control and exercise he reports due to severe arthritis and diabetic neuropathy is not able to do much. Grandson reports about not being compliant with diabetic diet , patient states that blood sugars in the morning are mostly 110 and postprandial ranges from 150-170. He has been compliant with his medication recently started on Lantus. Discussed with the patient about the HbA1c to be at goal and below 5.8, he will be following strict dietary control with the current diabetic medication regime will recheck [id number] 6 months if needed we will go up on Lantus a dose. Diabetic neuropathy and severe osteoarthritis he e has multiple joint osteoarthritis including lower back pain, bilateral knee joint pain, and he sees customer account representative for inflammatory polyarthropathy and has also seen physiatry in the past. He is currently going to Dr. mccollum and is also on Humira he is already on duloxetine, gabapentin 300 mg at night we recommended to take Tylenol extra strength 500 mg 3 times a day as needed generalized anxiety disorder he does not feel depressed but at time has increased anxiety and reports that not walking much makes him unhappy. continue with the trazodone he is also on duloxetine . He follows up with Dr. Wade for carotid artery stenosis Diabetic neuropathy patient has unsteady gait and uses a cane he was given a walker for gait stability hypertension blood pressure is currently at goal. systolic blood pressure is 117 today, he is currently on not on any medications Preventive CARE patient has been following up with a clinic lead Dr. Chiu in December [address] [facility] and ophthalmologyin April 2024 by [facility] considering his comorbidities he needs help with activities of daily living like transferring, lifting, dressing, showering, transportation He is current on his flu shot and pneumonia vaccine 08/05/2024 Encounter for general adult medical examination without abnormal findings (ICD-10 - Z00.00) Mr. 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 Insulin-dependent diabetes mellitus, patient reports he has discontinued Trulicity and was started on Lantus HbA1c was checked and it was 6.6 as compared to 5.8 previously discussed with patient about strict diet control and exercise he reports due to severe arthritis and diabetic neuropathy is not able to do much. Grandson reports about not being compliant with diabetic diet , patient states that blood sugars in the morning are mostly 110 and postprandial ranges from 150-170. He has been compliant with his medication recently started on Lantus. Discussed with the patient about the HbA1c to be at goal and below 5.8, he will be following strict dietary control with the current diabetic medication regime will recheck [id number] 6 months if needed we will go up on Lantus a dose. Diabetic neuropathy and severe osteoarthritis he e has multiple joint osteoarthritis including lower back pain, bilateral knee joint pain, and he sees customer account representative for inflammatory polyarthropathy and has also seen physiatry in the past. He is currently going to Dr. mccollum and is also on Humira he is already on duloxetine, gabapentin 300 mg at night we recommended to take Tylenol extra strength 500 mg 3 times a day as needed generalized anxiety disorder he does not feel depressed but at time has increased anxiety and reports that not walking much makes him unhappy. continue with the trazodone he is also on duloxetine . He follows up with Dr. Wade for carotid artery stenosis Diabetic neuropathy patient has unsteady gait and uses a cane he was given a walker for gait stability hypertension blood pressure is currently at goal. systolic blood pressure is 117 today, he is currently on not on any medications Preventive CARE patient has been following up with a clinic lead Dr. Chiu in December [address] [facility] and ophthalmologyin April 2024 by [place] [facility] considering his comorbidities he needs help with activities of daily living like transferring, lifting, dressing, showering, transportation He is current on his flu shot and pneumonia vaccine 08/05/2024 Essential (primary) hypertension (ICD-10 - I10) Mr. 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 Insulin-dependent diabetes mellitus, patient reports he has discontinued Trulicity and was started on Lantus HbA1c was checked and it was 6.6 as compared to 5.8 previously discussed with patient about strict diet control and exercise he reports due to severe arthritis and diabetic neuropathy is not able to do much. Grandson reports about not being compliant with diabetic diet , patient states that blood sugars in the morning are mostly 110 and postprandial ranges from 150-170. He has been compliant with his medication recently started on Lantus. Discussed with the patient about the HbA1c to be at goal and below 5.8, he will be following strict dietary control with the current diabetic medication regime will recheck [id number] 6 months if needed we will go up on Lantus a dose. Diabetic neuropathy and severe osteoarthritis he e has multiple joint osteoarthritis including lower back pain, bilateral knee joint pain, and he sees customer account representative for inflammatory polyarthropathy and has also seen physiatry in the past. He is currently going to Dr. mccollum and is also on Humira he is already on duloxetine, gabapentin 300 mg at night we recommended to take Tylenol extra strength 500 mg 3 times a day as needed generalized anxiety disorder he does not feel depressed but at time has increased anxiety and reports that not walking much makes him unhappy. continue with the trazodone he is also on duloxetine . He follows up with Dr. Wade for carotid artery stenosis Diabetic neuropathy patient has unsteady gait and uses a cane he was given a walker for gait stability hypertension blood pressure is currently at goal. systolic blood pressure is 117 today, he is currently on not on any medications Preventive CARE patient has been following up with a clinic lead Dr. Chiu in December [address] [facility] and ophthalmologyin April 2024 by [facility]s considering his comorbidities he needs help with activities of daily living like transferring, lifting, dressing, showering, transportation He is current on his flu shot and pneumonia vaccine 03/10/2024 Type 2 diabetes mellitus with unspecified complications (ICD-10 - E11.8) Mr. Sullivan is a 68-year-old Chinese-speaking gentleman with DM type II, CAD s/p CABG X5 at [facility] 2020, PRICE, polyosteoarthritis and cervical radiculopathy here for follow up. Plan is as follows: Blood pressure well controlled, not managed on BP medication. Albumin/Creatinine ratio is WNL. 2. Type II diabetes mellitus with neuropathy.: - Recent A1C is 5.8. F/up with [employer]. Lantus Adjustment has been made to be 5 Units, otherwise continue the same regimen. - He has seen his regulatory attorney in the past 1 year. He sees podiatry Dr Beebe, last appt 2 months ago. Foot care discussed. - Recheck A1C, CMP. 3. CAD: He is asymptomatic. He is on right medications. He sees a Plastic Boat Patcher at [place]. Stress test to be scheduled for regular check-ups. 4. Occlusion of Left carotid stenosis: - Patient is currently on ASA and Statins. Lipid panel is wnl. F/up with Dr. Wade, has an upcoming appt to discuss further 5. Hyperlipidemia: Last lipid panel within normal limits. Continue Atorvastatin 40 MG at night. - Recheck lipid panel 6. PRICE: - Mood stable on current regimen. He sees Dr. Jamil [id number]. 7. Polyosteoarthritis. He uses a cane to walk. Dr. Mccollum. - He needs help with transferring, showering, toileting, dressing and daily activities like transportation, grocery shopping, laundry, going to medical appointments, picking up prescription and medication supervision. He can take Gabapentin 300 MG twice a day at night. 8. Constipation: - Follows up with [facility] GI. - Screening C-scope is due, referral has been set-up. 89. STEPHEN: - Does not tolerate Ci-pap, doesn't see Dr. Tellez anymore due to insurance changes. Need a referral to Pulm. Blood work reviewed with patient and questions answered. Screening blood work before next appointment. General health concerns discussed with patient. Scribe services used to formulate this note under HIPAA compliance and under [place] law mandated for scribe services. Patient aware of service. Verbal consent and written consent taken from the patient. Patient understands and verbalizes understanding of the scribes services and all questions answered regarding scribes services. Patient agrees to use of scribes services. 03/10/2024 Atherosclerosis of coronary artery bypass graft(s) without angina pectoris (ICD-10 - I25.810) Mr. Sullivan is a 68-year-old Chinese-speaking gentleman with DM type II, CAD s/p CABG X5 at [facility] 2020, PRICE, polyosteoarthritis and cervical radiculopathy here for follow up. Plan is as follows: Blood pressure well controlled, not managed on BP medication. Albumin/Creatinine ratio is WNL. 2. Type II diabetes mellitus with neuropathy.: - Recent A1C is 5.8. F/up with Computer Typesetter Keyliner. Lantus Adjustment has been made to be 5 Units, otherwise continue the same regimen. - He has seen his regulatory attorney in the past 1 year. He sees podiatry Dr Beebe, last appt 2 months ago. Foot care discussed. - Recheck A1C, CMP. 3. CAD: He is asymptomatic. He is on right medications. He sees a Plastic Boat Patcher at [place]. Stress test to be scheduled for regular check-ups. 4. Occlusion of Left carotid stenosis: - Patient is currently on ASA and Statins. Lipid panel is wnl. F/up with Dr. Wade, has an upcoming appt to discuss further 5. Hyperlipidemia: Last lipid panel within normal limits. Continue Atorvastatin 40 MG at night. - Recheck lipid panel 6. PRICE: - Mood stable on current regimen. He sees Dr. Jamil k5rzlder. 7. Polyosteoarthritis. He uses a cane to walk. Dr. Mccollum. - He needs help with transferring, showering, toileting, dressing and daily activities like transportation, grocery shopping, laundry, going to medical appointments, picking up prescription and medication supervision. He can take Gabapentin 300 MG twice a day at night. 8. Constipation: - Follows up with [facility]. - Screening C-scope is due, referral has been set-up. 89. STEPHEN: - Does not tolerate Ci-pap, doesn't see Dr. Tellez anymore due to insurance changes. Need a referral to Pulm. Blood work reviewed with patient and questions answered. Screening blood work before next appointment. General health concerns discussed with patient. Scribe services used to formulate this note under HIPAA compliance and under [place] law mandated for scribe services. Patient aware of service. Verbal consent and written consent taken from the patient. Patient understands and verbalizes understanding of the scribes services and all questions answered regarding scribes services. Patient agrees to use of scribes services. 08/05/2024 Atherosclerosis of coronary artery bypass graft(s) without angina pectoris (ICD-10 - I25.810) Mr. 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 Insulin-dependent diabetes mellitus, patient reports he has discontinued Trulicity and was started on Lantus HbA1c was checked and it was 6.6 as compared to 5.8 previously discussed with patient about strict diet control and exercise he reports due to severe arthritis and diabetic neuropathy is not able to do much. Grandson reports about not being compliant with diabetic diet , patient states that blood sugars in the morning are mostly 110 and postprandial ranges from 150-170. He has been compliant with his medication recently started on Lantus. Discussed with the patient about the HbA1c to be at goal and below 5.8, he will be following strict dietary control with the current diabetic medication regime will recheck EsI5epy 6 months if needed we will go up on Lantus a dose. Diabetic neuropathy and severe osteoarthritis he e has multiple joint osteoarthritis including lower back pain, bilateral knee joint pain, and he sees customer account representative for inflammatory polyarthropathy and has also seen physiatry in the past. He is currently going to Dr. mccollum and is also on Humira he is already on duloxetine, gabapentin 300 mg at night we recommended to take Tylenol extra strength 500 mg 3 times a day as needed generalized anxiety disorder he does not feel depressed but at time has increased anxiety and reports that not walking much makes him unhappy. continue with the trazodone he is also on duloxetine . He follows up with Dr. Wade for carotid artery stenosis Diabetic neuropathy patient has unsteady gait and uses a cane he was given a walker for gait stability hypertension blood pressure is currently at goal. systolic blood pressure is 117 today, he is currently on not on any medications Preventive CARE patient has been following up with a clinic lead Dr. Chiu in December [address] [facility] and ophthalmologyin April 2024 by [facility] 's considering his comorbidities he needs help with activities of daily living like transferring, lifting, dressing, showering, transportation He is current on his flu shot and pneumonia vaccine 08/05/2024 Benign prostatic hyperplasia without lower urinary tract symptoms (ICD-10 - N40.0) Mr. 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 Insulin-dependent diabetes mellitus, patient reports he has discontinued Trulicity and was started on Lantus HbA1c was checked and it was 6.6 as compared to 5.8 previously discussed with patient about strict diet control and exercise he reports due to severe arthritis and diabetic neuropathy is not able to do much. Grandson reports about not being compliant with diabetic diet , patient states that blood sugars in the morning are mostly 110 and postprandial ranges from 150-170. He has been compliant with his medication recently started on Lantus. Discussed with the patient about the HbA1c to be at goal and below 5.8, he will be following strict dietary control with the current diabetic medication regime will recheck [id number] 6 months if needed we will go up on Lantus a dose. Diabetic neuropathy and severe osteoarthritis he e has multiple joint osteoarthritis including lower back pain, bilateral knee joint pain, and he sees customer account representative for inflammatory polyarthropathy and has also seen physiatry in the past. He is currently going to Dr. mccollum and is also on Humira he is already on duloxetine, gabapentin 300 mg at night we recommended to take Tylenol extra strength 500 mg 3 times a day as needed generalized anxiety disorder he does not feel depressed but at time has increased anxiety and reports that not walking much makes him unhappy. continue with the trazodone he is also on duloxetine . He follows up with Dr. Wade for carotid artery stenosis Diabetic neuropathy patient has unsteady gait and uses a cane he was given a walker for gait stability hypertension blood pressure is currently at goal. systolic blood pressure is 117 today, he is currently on not on any medications Preventive CARE patient has been following up with a clinic lead Dr. Chiu in December [address] [facility] and ophthalmologyin April 2024 by [facility] 's considering his comorbidities he needs help with activities of daily living like transferring, lifting, dressing, showering, transportation He is current on his flu shot and pneumonia vaccine 08/05/2024 Obstructive sleep apnea (adult) (pediatric) (ICD-10 - G47.33) Mr. 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 Insulin-dependent diabetes mellitus, patient reports he has discontinued Trulicity and was started on Lantus HbA1c was checked and it was 6.6 as compared to 5.8 previously discussed with patient about strict diet control and exercise he reports due to severe arthritis and diabetic neuropathy is not able to do much. Grandson reports about not being compliant with diabetic diet , patient states that blood sugars in the morning are mostly 110 and postprandial ranges from 150-170. He has been compliant with his medication recently started on Lantus. Discussed with the patient about the HbA1c to be at goal and below 5.8, he will be following strict dietary control with the current diabetic medication regime will recheck XpZ3ith 6 months if needed we will go up on Lantus a dose. Diabetic neuropathy and severe osteoarthritis he e has multiple joint osteoarthritis including lower back pain, bilateral knee joint pain, and he sees customer account representative for inflammatory polyarthropathy and has also seen physiatry in the past. He is currently going to Dr. mccollum and is also on Humira he is already on duloxetine, gabapentin 300 mg at night we recommended to take Tylenol extra strength 500 mg 3 times a day as needed generalized anxiety disorder he does not feel depressed but at time has increased anxiety and reports that not walking much makes him unhappy. continue with the trazodone he is also on duloxetine . He follows up with Dr. Wade for carotid artery stenosis Diabetic neuropathy patient has unsteady gait and uses a cane he was given a walker for gait stability hypertension blood pressure is currently at goal. systolic blood pressure is 117 today, he is currently on not on any medications Preventive CARE patient has been following up with a clinic lead Dr. Chiu in December [address] [facility] and ophthalmologyin April 2024 by [facility] considering his comorbidities he needs help with activities of daily living like transferring, lifting, dressing, showering, transportation He is current on his flu shot and pneumonia vaccine 08/05/2024 Diabetes mellitus due to underlying condition with diabetic neuropathy, unspecified (ICD-10 - E08.40) Mr. 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 Insulin-dependent diabetes mellitus, patient reports he has discontinued Trulicity and was started on Lantus HbA1c was checked and it was 6.6 as compared to 5.8 previously discussed with patient about strict diet control and exercise he reports due to severe arthritis and diabetic neuropathy is not able to do much. Grandson reports about not being compliant with diabetic diet , patient states that blood sugars in the morning are mostly 110 and postprandial ranges from 150-170. He has been compliant with his medication recently started on Lantus. Discussed with the patient about the HbA1c to be at goal and below 5.8, he will be following strict dietary control with the current diabetic medication regime will recheck [id number] 6 months if needed we will go up on Lantus a dose. Diabetic neuropathy and severe osteoarthritis he e has multiple joint osteoarthritis including lower back pain, bilateral knee joint pain, and he sees customer account representative for inflammatory polyarthropathy and has also seen physiatry in the past. He is currently going to Dr. mccollum and is also on Humira he is already on duloxetine, gabapentin 300 mg at night we recommended to take Tylenol extra strength 500 mg 3 times a day as needed generalized anxiety disorder he does not feel depressed but at time has increased anxiety and reports that not walking much makes him unhappy. continue with the trazodone he is also on duloxetine . He follows up with Dr. Wade for carotid artery stenosis Diabetic neuropathy patient has unsteady gait and uses a cane he was given a walker for gait stability hypertension blood pressure is currently at goal. systolic blood pressure is 117 today, he is currently on not on any medications Preventive CARE patient has been following up with a clinic lead Dr. Chiu in December [address] [facility] and ophthalmologyin April 2024 by [place] [facility] considering his comorbidities he needs help with activities of daily living like transferring, lifting, dressing, showering, transportation He is current on his flu shot and pneumonia vaccine 08/05/2024 Generalized anxiety disorder (ICD-10 - F41.1) Mr. 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 Insulin-dependent diabetes mellitus, patient reports he has discontinued Trulicity and was started on Lantus HbA1c was checked and it was 6.6 as compared to 5.8 previously discussed with patient about strict diet control and exercise he reports due to severe arthritis and diabetic neuropathy is not able to do much. Grandson reports about not being compliant with diabetic diet , patient states that blood sugars in the morning are mostly 110 and postprandial ranges from 150-170. He has been compliant with his medication recently started on Lantus. Discussed with the patient about the HbA1c to be at goal and below 5.8, he will be following strict dietary control with the current diabetic medication regime will recheck WcF3siv 6 months if needed we will go up on Lantus a dose. Diabetic neuropathy and severe osteoarthritis he e has multiple joint osteoarthritis including lower back pain, bilateral knee joint pain, and he sees customer account representative for inflammatory polyarthropathy and has also seen physiatry in the past. He is currently going to Dr. mccollum and is also on Humira he is already on duloxetine, gabapentin 300 mg at night we recommended to take Tylenol extra strength 500 mg 3 times a day as needed generalized anxiety disorder he does not feel depressed but at time has increased anxiety and reports that not walking much makes him unhappy. continue with the trazodone he is also on duloxetine . He follows up with Dr. Wade for carotid artery stenosis Diabetic neuropathy patient has unsteady gait and uses a cane he was given a walker for gait stability hypertension blood pressure is currently at goal. systolic blood pressure is 117 today, he is currently on not on any medications Preventive CARE patient has been following up with a clinic lead Dr. Chiu in December [address] [facility] and ophthalmologyin April 2024 by [place] [facility] considering his comorbidities he needs help with activities of daily living like transferring, lifting, dressing, showering, transportation He is current on his flu shot and pneumonia vaccine Plan Of Treatment Pending Test Test Name Order Date 25OH VITAMIN D 03/01/2023 CBC (COMPLETE BLOOD COUNT) 03/01/2023 METHYLMALONIC ACID, SERUM 03/01/2023 POTASSIUM 04/10/2022 TSH WITH REFLEX TO FT4 03/01/2023 VITAMIN B12 03/01/2023 Hemoglobin [id number] 08/05/2024 Future Test Test Name Order Date Hemoglobin [id number] 03/10/2024 Albumin/Creatinine Ratio,[id number] Lipid [id number] 03/10/2024 Comp. Metabolic Panel [id number] 2023 Insurance Providers Payer Name Payer Address Payer Phone Subscriber Number Group Number Insured Name Patient Relationship to Insured Coverage Start Date Coverage End Date [employer] [address] [address] [place] [address] [phone] [id number] Neville Jose Self - patient is the insured Medications Administered Medication Instructions Date of Administration Dosage Notes B12 05/25/2022 1 mL Vitamin B-12 09/10/2023 1 mL Medical (General) History Medical History History ICD Code hypertension, benign hyperlipidemia CAD at [facility] Anxiety/depression See Dr. Jamil Osteoarthritis see [facility], and also Dr. Mccollum BPH see urology at [place] Right knee joint/left ankle pain DM T 2, Dr. Beebe podiatry Personal history of COVID-19 Mild STEPHEN, Occlusion and stenosis of Left carotid, Sees Dr. Wade Surgical History Surgery Date(Month/Year) CABG TIME 5 at [facility] 2019 Right knee pain Left ankle pain by Dr Pedroza [facility] surgery
== END 2025-03-03 15:02 | disposition home or self-care (01) ==
LOC: HO.HCS 14:39
PROVIDERS: PCP Hospitalist; Visit Provider Internal Medicine Cardiovascular Disease
DX: I25.10 Atherosclerotic heart disease of native coronary artery without angina pectoris (principal)
CPT/HCPCS: 93010; 99214; G2211

== ENCOUNTER → 2025-03-03 14:31 | Outpatient (BNVA) | payer MEDICARE, MEDICAID, SELFPAY | PROVIDERS: PCP Hospitalist; Visit Provider Internal Medicine Cardiovascular Disease | DX: I25.10 Atherosclerotic heart disease of native coronary artery without angina pectoris (principal) | CPT/HCPCS: 93005; 99212 ==

== ENCOUNTER → 2025-03-06 07:48 | Outpatient (REF) | payer MEDICARE, MEDICAID, SELFPAY ==
--- OUTSIDE RECORDS SUMMARY | 2025-03-06 07:54 | XMS_ITS | Continuity of Care Document ---
Author Organization [facility] [address] [place] [address] Phone [phone] Care Team Providers Care Identification Printing Machine Setter Name Role Phone Ko Kenyon M.D. Care Team Information Receive r [phone] Problems Active Problems Provider Date Essential hypertension Faisal Osuna M.D. O nset: 11/27/2023 Hyperlipidemia Faisal Osuna M.D. Onset: 0 11/27/2023 Type 2 diabetes mellitus Faisal Osuna M.D. Onset: 11/27/2023 Anxiety Faisal Osnua M.D. Onset: 0 11/27/2023 H/O: depression Faisal [...] every week 6ml Faisal Osuna M.D. 09/03/2024 [id number] Capsules 2 tablets by mouth before bed 180caps Faisal Osuna M.D. 06/03/2024 Freestyle [place] 2/Sensor/Flash Glucose Monitoring Wekkir5Xrltvl Misc 1 sensor to skin every fourteen days as directed 6units Faisal Osuna M.D. 11/27/2023 Methotrexate Sodium2.5mg Tablets Take 4 Tablets By Mouth Once Per Week Call To Schedule Labs Luke Nelson Izfvprvdn16za Tablets Take 1 Tablet By Mouth Every Day For 90 Days Ko Kenyon M.D. D-1000 Extra Zmsbnlde83dss (1000 Ut) Tablets Take 1 Tablet By Mouth Every Day For 90 Days Ko Kenyon M.D. Metformin [id number] Tablets Take 1 Tablet By Mouth Twice A Day With A Meal For 90 Days Ko Kenyon M.D. Duloxetine BEE66hf Caps DR Part Take One Capsule By Mouth Every Day After Breakfast Unknown Aspirin Low Xmeo51vm Tablets DR Take 1 Tablet By Mouth Every Day For 90 Days Ko Kenyon M.D. Zolpidem Xmobqlmw56xi Tablets Take One Tablet By Mouth Every Day AT Bedtime as Needed Unknown History Medications Pacmxlfr4ls/0.5ML Solution Pen-Inject 1 injection every week as [...]
--- OUTSIDE RECORDS SUMMARY | 2025-03-06 07:54 | XMS_ITS ---
Author Organization [facility] Address [address] [address] Care Team Providers Care Pre Wave Assembler Name Role Phone KATHY MARTINEZ Primary Care Provider REASON FOR VISIT Podiatry referral Encounters Encounter Location Date Provider Diagnosis [facility] [address] [address] 11/13/2024 KATHY MARTINEZ Plan Of Treatment No Information Progress Notes * Edmundo HUMMELmDOB:[birth year] (69 yo M)Acc No.[id number]:11/13/2024 Patient:?Neville HUMMEL :1955???Age:69 Y???Sex:Male Address:[address] [place] [id number] * true * Date:? Generated for Brendon benson/Rene/eTransmitting on:?03/06/2025 07:54 AM EDT
--- OUTSIDE RECORDS SUMMARY | 2025-03-06 07:54 | XMS_ITS | Encounter Summary ---
Author Organization [facility] Address [address] [place] [address] Support Name Relationship Address Phone Tesfaye Pablo Son [address] [place] [address] [place] [address] Care Team Providers Care Ward Service Supervisor Name Role Phone Shelley Glass PA-C Primary Care Provider [phone] Encounter Details Date Type Department Care Team (Late st Contact Info) Description 09/10/2015 Interim Notes Caring [facility] Main [address] [place] [address] [place] [address] Social History Tobacco Use Types Packs/Day Years Used Date Smoking Tobacco: Every Day Cigarettes Smokeless Tobacco: Never Alcohol Use Standard Drinks/Week Comments No 0 (1 standard drink = 0.6 oz pur e alcohol) Sex and Gender Information Value Date Recorded Sex Assigned at Male 08/14/2017 12:21 PM PDT Legal Sex Male 11:36 AM PDT Gender Identity Male 08/14/2017 12:21 PM PDT Sexual Orientation Straight 08/14/2017 12 :21 PM PDT documented as of this encounter Plan of Treatment Not on file documented as of this encounter Visit Diagnoses Not on filedocumented in this encounter Care Teams Ward Service Supervisor Relationship Specialty Start Date End Date Shelley Glass PA-C [address] [place] [address] PCP - General Internal Medicine 11/15/19 09/14/20 documented as of this encounter
--- OUTSIDE RECORDS SUMMARY | 2025-03-06 07:54 | XMS_ITS | Encounter Summary ---
Author Organization [facility] Address [address] [place] [address] Support Name Relationship Address Phone Tesfaye Pablo Son [address] [place] [address] [place] [address] Care Team Providers Care Ballet Master/Mistress Name Role Phone Shelley Glass PA-C Primary Care Provider [phone] Encounter Details Date Type Department Care Team (Late st Contact Info) Description 2015 Interim Notes Caring [facility] Main [address] [place] [address] [place] [address] Social History Tobacco Use Types Packs/Day Years [...] on filedocumented in this encounter Care Teams Ballet Master/Mistress Relationship Specialty Start Date End Date Shelley Glass PA-C [address] [place] [address] PCP - General Internal Medicine 11/15/19 09/14/20 documented as of this encounter
--- OUTSIDE RECORDS SUMMARY | 2025-03-06 07:54 | XMS_ITS ---
Author Organization [facility] Address [address] [facility] [address] [place] [address] Care Team Providers Care Traverse Rod Assembler Name Role Phone KATHY MARTINEZ Primary Care Provider [phone] REASON FOR VISIT Referral Encounters Encounter Location Date Provider Diagnosis [facility] [address] [facility] [address] [place] [address] 12/12/2024 KATHY MARTINEZ Plan Of Treatment No Information Progress Notes * Edmundo HUMMELmDOB:[birth year] (69 yo M)Acc No.[id number]:12/12/2024 Patient:?Neville HUMMEL :1955???Age:69 Y???Sex:Male Address:[address] [place] [address] * true * Date:? Generated for Brendon benson/Rene/eTransmitting on:?03/06/2025 07:54 AM EDT
--- OUTSIDE RECORDS SUMMARY | 2025-03-06 07:54 | XMS_ITS ---
Author Organization [facility] Address [address] [facility] [address] [place] [address] Care Team Providers Care Lining Brusher Name Role Phone KATHY MARTINEZ Primary Care Provider REASON FOR VISIT VM to R/S Encounters Encounter Location Date Provider Diagnosis [facility] [address] [facility] [address] [place] [address] 01/14/2025 KATHY MARTINEZ Plan Of Treatment No Information Progress Notes * Edmundo HUMMELmDOB:[birth year] (69 yo M)Acc No.[id number]:01/14/2025 Patient:?Neville HUMMEL :1955???Age:69 Y???Sex:Male Address:[address] [place] [phone] * true * Date:? Generated for Brendon benson/Rene/eTransmitting on:?03/06/2025 07:53 AM EDT
--- OUTSIDE RECORDS SUMMARY | 2025-03-06 07:55 | XMS_ITS | Patient Health Record ---
Author Organization [facility] Address [address] [place] [address] Care Team Providers Care Stranner Name Role Phone MICHELLE KATHY Primary Care Provider David Kofi Unavailable [phone] Josh Diaz Unavailable [phone] Allergies No Known Allergies Reason For Referral [...] itus with unspecified complications (E11.8) Referral Organization [facility] ter Referring Provider First Name KATHY Referring Provider Last Name MICHELLE Referring Provider Speciality Internal M edicine Referred Provider Specialty Podiatry General Notes Referral faxed to [facility]. Please call patient to schedule.Rachele [...] W/U Status Risk Notes Problem Pernicious anemia (90359179) Vitamin B12 deficiency anemia due to intrinsic factor deficiency (D51.0) Active confirmed Problem Diabetic neuropathy (817671695) Diabetes mellitus due to underlying condition with diabetic neuropathy, unspecified (E08.40) Active confirmed Problem Disorder due to type 2 diabetes mellitus (759452689) Type 2 diabetes mellitus with unspecified complications (E11.8) Active confirmed Problem Type II diabetes mellitus without complication (497947911) Type 2 diabetes mellitus without complications (E11.9) Active confirmed Problem Mixed hyperlipidemia (248738842) Mixed hyperlipidemia (E78.2) Active confirmed Problem Moderate recurrent major depression (47163579) Major depressive disorder, recurrent, moderate (F33.1) Active confirmed Problem Generalized anxiety disorder (40876219) Generalized anxiety disorder (F41.1) Active confirmed Problem Obstructive sleep apnea syndrome (disorder) (62259435) Obstructive sleep apnea (adult) (pediatric) (G47.33) Active confirmed Problem 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 (946822408) Atherosclerosis of coronary artery bypass graft(s) without angina pectoris (I25.810) Active confirmed Problem Carotid artery occlusion (979306166) Occlusion and stenosis of unspecified carotid artery (I65.29) Active confirmed Problem Inflammatory polyarthropathy (325672565) Inflammatory polyarthropathy (M06.4) Active confirmed Problem Osteoarthritis (874580748) Polyosteoarthritis , unspecified (M15.9) Active confirmed Problem Dysphagia (10346747) Dysphagia, unspecified (R13.10) Active confirmed Problem Abnormal gait (02283737) Other abnormalities of gait and mobility (R26.89) Active confirmed Problem Essential hypertension (77844783) Essential (primary) hypertension (I10) Active confirmed Problem Benign prostatic hypertrophy without outflow obstruction (340242116) Benign prostatic hyperplasia without lower urinary tract symptoms (N40.0) Active confirmed Vital Signs Heart Rate 74 /min 08/05/2024 Temperature 98.1 degrees Fahrenheit 08/05/2024 Blood pressure diastolic 72 mm Hg 08/05/2024 Oximetry 96 % 08/05/2024 Height 69 in 08/05/2024 Blood pressure systolic 116 mm Hg 08/05/2024 Weight 174 lbs 08/05/2024 BMI 25.69 kg/m2 08/05/2024 Encounters Encounter Location Date Provider Diagnosis [address] [address] 03/10/2024 Borisbillmattie Sinclairashwini Mixed hyperlipidemia E78.2 ; Diabetes mellitus due to underlying condition with diabetic neuropathy, unspecified E08.40 ; Type 2 diabetes mellitus with unspecified complications E11.8 and Atherosclerosis of coronary artery bypass graft(s) without angina pectoris I25.810 [facility] [address] [place] [address] 08/05/2024 Kofi Hernandez Type 2 diabetes mellitus [...] unspecified E08.40 and Generalized anxiety disorder F41.1 [facility] [address] [place] [address] 03/12/2024 [facility] [address] [place] [address] 05/09/2024 Josh Diaz Type 2 diabetes mellitus without complications E11.9 [facility] [address] [place] [address] 05/15/2024 [facility] Type 2 diabetes mellitus without complications E11.9 [facility] [address] [place] [address] 06/17/2024 [facility] [address] [place] [address] 08/05/2024 [facility] [address] [place] [address] 09/15/2024 [facility] [address] [place] [address] 11/03/2024 [facility] [address] [place] [address] 11/13/2024 [facility] [address] [place] [address] 12/12/2024 [facility] [address] [place] [address] 01/14/2025 KATHY MARTINEZ Assessments Encounter Date Diagnosis (ICD Code) Assessment Notes Treatment Notes Treatment Clinical Notes Section Notes 05/09/2024 Type 2 diabetes mellitus without complications (ICD-10 - E11.9) 05/15/2024 Type 2 diabetes mellitus without complications (ICD-10 - E11.9) 08/05/2024 Type 2 diabetes mellitus with unspecified complications (ICD-10 - E11.8) Mr. 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 [...] the current diabetic medication regime will recheck [id number] 6 months if needed we will go up on Lantus a dose. Diabetic neuropathy and severe osteoarthritis he e has multiple joint osteoarthritis including lower back pain, bilateral knee joint pain, and he sees pbx installer for inflammatory polyarthropathy and has also seen [...] patient has been following up with a house painting instructor Dr. Chiu in December 2023 at [facility] and ophthalmologyin April 2024 by [facility] considering his comorbidities he needs help with activities of daily living like transferring, lifting, dressing, showering, transportation He is current on his flu shot and pneumonia vaccine 03/10/2024 Diabetes mellitus due to underlying condition with diabetic neuropathy, unspecified (ICD-10 - E08.40) Mr. Sullivan is a 68-year-old [place]yrgyz-speaking gentleman with DM type II, CAD s/p CABG X5 at [facility] 2020, PRICE, polyosteoarthritis and cervical radiculopathy here for follow up. Plan is as follows: Blood pressure well controlled, not managed on BP medication. Albumin/Creatinine ratio is WNL. 2. Type II diabetes mellitus with neuropathy.: - Recent A1C is 5.8. F/up with [employer]. Lantus Adjustment has been made to be 5 Units, otherwise continue the same regimen. - He has seen his disk grinder in the past 1 year. He sees podiatry Dr Beebe, last appt 2 months ago. Foot care discussed. - Recheck A1C, CMP. 3. CAD: He is asymptomatic. He is on right medications. He sees a Car Refinisher at [place]. Stress test to be scheduled for regular [...] on current regimen. He sees Dr. Jamil [id number]. 7. Polyosteoarthritis. He uses a cane to walk. Dr. Mccollum. - He needs help with transferring, showering, toileting, dressing and daily activities like transportation, grocery shopping, laundry, going to medical appointments, picking up prescription and medication supervision. He can take Gabapentin 300 MG twice a day at night. 8. Constipation: - Follows up with [facility]. - Screening C-scope is due, [...] this note under HIPAA compliance and under [place] law mandated for scribe services. Patient aware of service. Verbal consent and written consent taken from the patient. Patient understands and verbalizes understanding of the scribes services and all questions answered regarding scribes services. Patient agrees to use of scribes services. 03/10/2024 Mixed hyperlipidemia (ICD-10 - E78.2) Mr. Sullivan is a 68-year-old Kyrgyz-speaking gentleman with DM type II, CAD s/p CABG X5 at [facility] 2020, PRICE, polyosteoarthritis and cervical radiculopathy here for follow up. Plan is as follows: Blood pressure well controlled, not managed on BP medication. Albumin/Creatinine ratio is WNL. 2. Type II diabetes mellitus with neuropathy.: - Recent A1C is 5.8. F/up with [employer]. Lantus Adjustment has been made to be 5 Units, otherwise continue the same regimen. - He has seen his disk grinder in the past 1 year. He sees podiatry Dr Beebe, last appt 2 months ago. Foot care discussed. - Recheck A1C, CMP. 3. CAD: He is asymptomatic. He is on right medications. He sees a Car Refinisher at [place]. Stress test to be scheduled for regular [...] on current regimen. He sees Dr. Jamil [id number]. 7. Polyosteoarthritis. He uses a cane to walk. Dr. Mccollum. - He needs help with transferring, showering, toileting, dressing and daily activities like transportation, grocery shopping, laundry, going to medical appointments, picking up prescription and medication supervision. He can take Gabapentin 300 MG twice a day at night. 8. Constipation: - Follows up with [facility]. - Screening C-scope is due, [...] this note under HIPAA compliance and under [place] law mandated for scribe services. Patient aware of service. Verbal consent and written consent taken from the patient. Patient understands and verbalizes understanding of the scribes services and all questions answered regarding scribes services. Patient agrees to use of scribes services. 08/05/2024 Encounter for general adult medical examination without abnormal findings (ICD-10 - Z00.00) Mr. 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 [...] the current diabetic medication regime will recheck [id number] 6 months if needed we will go up on Lantus a dose. Diabetic neuropathy and severe osteoarthritis he e has multiple joint osteoarthritis including lower back pain, bilateral knee joint pain, and he sees pbx installer for inflammatory polyarthropathy and has also seen [...] patient has been following up with a house painting instructor Dr. Chiu in December 2023 at [facility] and ophthalmologyin April 2024 by [place] [facility] considering his comorbidities he needs help with activities of daily living like transferring, lifting, dressing, showering, transportation He is current on his flu shot and pneumonia vaccine 08/05/2024 Essential (primary) hypertension (ICD-10 - I10) Mr. 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 [...] the current diabetic medication regime will recheck [id number] 6 months if needed we will go up on Lantus a dose. Diabetic neuropathy and severe osteoarthritis he e has multiple joint osteoarthritis including lower back pain, bilateral knee joint pain, and he sees pbx installer for inflammatory polyarthropathy and has also seen [...] patient has been following up with a house painting instructor Dr. Chiu in December 2023 at [facility] and ophthalmologyin April 2024 by [facility] 's considering his comorbidities he needs help with activities of daily living like transferring, lifting, dressing, showering, transportation He is current on his flu shot and pneumonia vaccine 03/10/2024 Type 2 diabetes mellitus with unspecified complications (ICD-10 - E11.8) Mr. Sullivan is a 68-year-old Kyrgyz-speaking gentleman with DM type II, CAD s/p CABG X5 at [facility] 2020, PRICE, polyosteoarthritis and cervical radiculopathy here for follow up. Plan is as follows: Blood pressure well controlled, not managed on BP medication. Albumin/Creatinine ratio is WNL. 2. Type II diabetes mellitus with neuropathy.: - Recent A1C is 5.8. F/up with [employer]. Lantus Adjustment has been made to be 5 Units, otherwise continue the same regimen. - He has seen his disk grinder in the past 1 year. He sees podiatry Dr Beebe, last appt 2 months ago. Foot care discussed. - Recheck A1C, CMP. 3. CAD: He is asymptomatic. He is on right medications. He sees a Car Refinisher at [place]. Stress test to be scheduled for regular [...] on current regimen. He sees Dr. Jamil [id number]. 7. Polyosteoarthritis. He uses a cane to walk. Dr. Mccollum. - He needs help with transferring, showering, toileting, dressing and daily activities like transportation, grocery shopping, laundry, going to medical appointments, picking up prescription and medication supervision. He can take Gabapentin 300 MG twice a day at night. 8. Constipation: - Follows up with [facility]. - Screening C-scope is due, [...] this note under HIPAA compliance and under [place] law mandated for scribe services. Patient aware of service. Verbal consent and written consent taken from the patient. Patient understands and verbalizes understanding of the scribes services and all questions answered regarding scribes services. Patient agrees to use of scribes services. 03/10/2024 Atherosclerosis of coronary artery bypass graft(s) without angina pectoris (ICD-10 - I25.810) Mr. Sullivan is a 68-year-old [place]yrgyz-speaking gentleman with DM type II, CAD s/p CABG X5 at [facility] 2020, PRICE, polyosteoarthritis and cervical radiculopathy here for follow up. Plan is as follows: Blood pressure well controlled, not managed on BP medication. Albumin/Creatinine ratio is WNL. 2. Type II diabetes mellitus with neuropathy.: - Recent A1C is 5.8. F/up with [employer]. Lantus Adjustment has been made to be 5 Units, otherwise continue the same regimen. - He has seen his disk grinder in the past 1 year. He sees podiatry Dr Beebe, last appt 2 months ago. Foot care discussed. - Recheck A1C, CMP. 3. CAD: He is asymptomatic. He is on right medications. He sees a Car Refinisher at [place]. Stress test to be scheduled for regular [...] on current regimen. He sees Dr. Jamil [id number]. 7. Polyosteoarthritis. He uses a cane to walk. Dr. Mccollum. - He needs help with transferring, showering, toileting, dressing and daily activities like transportation, grocery shopping, laundry, going to medical appointments, picking up prescription and medication supervision. He can take Gabapentin 300 MG twice a day at night. 8. Constipation: - Follows up with [facility]. - Screening C-scope is due, [...] this note under HIPAA compliance and under [place] law mandated for scribe services. Patient aware of service. Verbal consent and written consent taken from the patient. Patient understands and verbalizes understanding of the scribes services and all questions answered regarding scribes services. Patient agrees to use of scribes services. 08/05/2024 Atherosclerosis of coronary artery bypass graft(s) without angina pectoris (ICD-10 - I25.810) Mr. 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 [...] the current diabetic medication regime will recheck [id number] 6 months if needed we will go up on Lantus a dose. Diabetic neuropathy and severe osteoarthritis he e has multiple joint osteoarthritis including lower back pain, bilateral knee joint pain, and he sees pbx installer for inflammatory polyarthropathy and has also seen [...] patient has been following up with a house painting instructor Dr. Chiu in December 2023 at [facility] and ophthalmologyin April 2024 by [facility] 's considering his comorbidities he needs help with activities of daily living like transferring, lifting, dressing, showering, transportation He is current on his flu shot and pneumonia vaccine 08/05/2024 Benign prostatic hyperplasia without lower urinary tract symptoms (ICD-10 - N40.0) Mr. 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 [...] the current diabetic medication regime will recheck EaJ8uty 6 months if needed we will go up on Lantus a dose. Diabetic neuropathy and severe osteoarthritis he e has multiple joint osteoarthritis including lower back pain, bilateral knee joint pain, and he sees pbx installer for inflammatory polyarthropathy and has also seen [...] patient has been following up with a house painting instructor Dr. Chiu in December 2023 at [facility] and ophthalmologyin April 2024 by [facility] 's considering his comorbidities he needs help with activities of daily living like transferring, lifting, dressing, showering, transportation He is current on his flu shot and pneumonia vaccine 08/05/2024 Obstructive sleep apnea (adult) (pediatric) (ICD-10 - G47.33) Mr. 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 [...] the current diabetic medication regime will recheck KwC4phx 6 months if needed we will go up on Lantus a dose. Diabetic neuropathy and severe osteoarthritis he e has multiple joint osteoarthritis including lower back pain, bilateral knee joint pain, and he sees pbx installer for inflammatory polyarthropathy and has also seen [...] patient has been following up with a house painting instructor Dr. Chiu in December 2023 at [facility] and ophthalmologyin April 2024 by [place] [facility] considering his comorbidities he needs help with activities of daily living like transferring, lifting, dressing, showering, transportation He is current on his flu shot and pneumonia vaccine 08/05/2024 Diabetes mellitus due to underlying condition with diabetic neuropathy, unspecified (ICD-10 - E08.40) Mr. 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 [...] the current diabetic medication regime will recheck [id number] 6 months if needed we will go up on Lantus a dose. Diabetic neuropathy and severe osteoarthritis he e has multiple joint osteoarthritis including lower back pain, bilateral knee joint pain, and he sees pbx installer for inflammatory polyarthropathy and has also seen [...] patient has been following up with a house painting instructor Dr. Chiu in December 2023 at [facility] and ophthalmologyin April 2024 by [place] [facility] considering his comorbidities he needs help with activities of daily living like transferring, lifting, dressing, showering, transportation He is current on his flu shot and pneumonia vaccine 08/05/2024 Generalized anxiety disorder (ICD-10 - F41.1) Mr. 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 [...] the current diabetic medication regime will recheck [id number] 6 months if needed we will go up on Lantus a dose. Diabetic neuropathy and severe osteoarthritis he e has multiple joint osteoarthritis including lower back pain, bilateral knee joint pain, and he sees pbx installer for inflammatory polyarthropathy and has also seen [...] patient has been following up with a house painting instructor Dr. Chiu in December 2023 at [facility] and ophthalmologyin April 2024 by [place] [facility] considering his comorbidities he needs help with activities of daily living like transferring, lifting, dressing, showering, transportation He is current on his flu shot and pneumonia vaccine Plan Of Treatment Pending Test Test Name Order Date 25OH VITAMIN D 03/01/2023 CBC (COMPLETE BLOOD COUNT) 03/01/2023 METHYLMALONIC ACID, SERUM 03/01/2023 POTASSIUM 04/10/2022 TSH WITH REFLEX TO FT4 03/01/2023 VITAMIN B12 03/01/2023 Hemoglobin [id number] 08/05/2024 Future Test Test Name Order Date Hemoglobin [id number] 03/10/2024 Albumin/Creatinine Ratio,Urine-[id number] Lipid Panel-[id number] 03/10/2024 Comp. Metabolic Panel [id number] 2023 Insurance Providers Payer Name Payer Address Payer Phone Subscriber Number Group Number Insured Name Patient Relationship to Insured Coverage Start Date Coverage End Date [employer] [address] [address] [place] [address] [id number] Neville Jose Self - patient is the insured Medications Administered Medication Instructions Date of Administration Dosage Notes B12 05/25/2022 1 mL Vitamin B-12 09/10/2023 1 mL Medical (General) History Medical History History ICD Code hypertension, benign hyperlipidemia CAD at [facility] Anxiety/depression See Dr. Jamil Osteoarthritis see [facility], and also Dr. Mccollum BPH see urology at [place] Right knee joint/left ankle pain DM T 2, Dr. Beebe podiatry Personal history of COVID-19 Mild STEPHEN, Occlusion and stenosis of Left carotid, Sees Dr. Wade Surgical History Surgery Date(Month/Year) CABG TIME 5 at [facility] 2019 Right knee pain Left ankle pain by Dr Pedroza [facility] surgery
--- OUTSIDE RECORDS SUMMARY | 2025-03-06 07:55 | XMS_ITS | Clinical Summary ---
Author Organization [facility] ity Address [id number] [place] [address] Care Team Providers Care Street Worker Name Role Phone Ko Kenyon MD Primary Care Provider [phone] Surgical History Surgery Date Site/Laterality Comments KNEE SURGERY PROCEDURE: HISTORICAL KNEE SURGERY ANKLE SURGERY PROCEDURE: HISTORICAL ANKLE SURGERY BACK SURGERY PROCEDURE: HISTORICAL BACK SURGERY APPENDECTOMY PROCEDURE: [place] APPENDEC INDICATED PURPOSE OTH MAJOR PX NOT SPX COLONOSCOPY PROCEDURE: HISTORICAL COLONOSCOPY COLONOSCOPY PROCEDURE: HISTORICAL COLONOSCOPY; COMMENT: Reports colonoscopy several years ago told study was normal Medical History Medical History Date Comments Diabetes ([facility] V24, [facility] V28) DX:Diabetes ([facility]) Arthritis DX:Arthritis Scalp cyst DX:Scalp cyst Coronary [...] 2:00 PM EDT Consult Orthopedic Surgery - [place] [address] [facility] [address] [place] [id number] Shine Quiroz, PALLAVI [address] [facility] [address] [place] [address] 07/01/2025 1:30 PM EDT Ancillary Procedure [facility] [address] [facility] [address] [place] [address] 07/31/2025 1:00 PM EDT Office Visit Vascular Surgery - [place] [address] [facility] [address] [place] [address] Robson Chin MD [address] [facility] [address] [place] [address] Health Maintenance Due Date Last Done Comments [...] - [place] [employer] MED[employer] Care Teams Street Worker Relationship Specialty Start Date End Date Ko Kenyon MD [address] [place] [phone] PCP - General Internal Medicine 06/10/21
--- OUTSIDE RECORDS SUMMARY | 2025-03-06 07:55 | XMS_ITS | Clinical Summary ---
Author Organization [facility] Address [address] [place] [address] Support Name Relationship Address Phone Tesfaye Pablo Son [id number] [place] [address] Care Team Providers Care Prosthetic Lab Technician Name Role Phone Unavailable Primary Care Provider Unavailabl e Source Comments PLEASE NOTE, if this patient is a minor, it may be UNLAWFUL to discuss sensitive information that is contained in these records (such as FAMILY PLANNING, MENTAL HEALTH or SUBSTANCE ABUSE) with the minor patient's parent or other person without the patient's specific authorization.[facility] Allergies No known active allergies Medications blood-glucose meter (FREESTYLE LITE METER) monitoring kit as needed for blood glucose monitoring Dx.E11.9 FREESTYLE LITE Test 2 times daily. 1 Each 09/06/20 18 Active cholecalciferol, vitamin D3, (VITAMIN D3) 50 mcg (2,000 unit) capsuleIndicatio ns:Vitamin D deficiency disease Take 1 Cap by mouth once daily 90 Cap 3 12/25/19 20 Active cyanocobalamin, vitamin B-12, 1,000 mcg tabletIndication s:Other dietary vitamin B12 deficiency anemia Take 1 Tab by mouth once daily 90 Tab 3 12/25/19 20 Active atorvastatin (LIPITOR) 80 mg tablet 80 mg Prescribed by cardiology 03/05/20 20 Active isosorbide mononitrate (IMDUR) 30 mg 24 hr tablet Prescribed by cardiology 04/14/20 20 Active polyethylene glycol 3350 17 gram/dose powderIndication s:Functional constipation Take 17 g by mouth once daily as needed (constipation) 510 g 5 04/25/20 20 Active docusate sodium (COLACE) 100 mg capsuleIndicatio ns:Functional constipation Take 1 Cap by mouth 2 (two) times daily as needed for constipation 60 Cap 04/25/20 20 Active metFORMIN (GLUCOPHAGE) 1,000 mg tabletIndication s:Type 2 diabetes mellitus with hyperglycemia, without long-term current use of insulin ([facility]) Take 1 Tab by mouth 2 (two) times daily with a meal DXE11.65 Please disregard previous script 180 Tab 1 05/10/20 20 Active sulfaSALAzine (AZULFIDINE EN-TABS) 500 mg EC tablet TK 2 TS PO BID 02/27/20 20 Active diclofenac sodium (VOLTAREN) [address] tablet TK 1 T PO BID 05/06/20 20 Active clopidogreL (PLAVIX) 75 mg tablet Take 75 mg by mouth once daily S/p CABG April 2020 Active metoprolol succinate (TOPROL-XL) 25 mg 24 hr tablet Take 25 mg by mouth once daily S/p CABG April 2020 Active dulaglutide (TRULICITY) 1.5 mg/0.5 mLIndications:Ty pe 2 diabetes mellitus without complication, without long-term current use of insulin ([facility]) Inject 1.5 mg into the skin every 7 (seven) days 2 mL 5 06/07/20 20 Active amiodarone (PACERONE) 200 mg tablet AF prophylaxis: Amiodarone 200 mg PO BID x 4 weeks. stop date 06/21; NSR 60-80 s/p 4th CABG 06/02/20 20 Active miscellaneous medical supply miscIndications: S/P cardiac cath,CAD in [place] artery,Essential hypertension affecting in third trimester ([facility]) by miscellaneous route once daily Dispense 1 blood pressure kit. Life time use. Dx:I10, 125.10, Z98.890 1 Each 07/09/20 20 Active ketoconazole (NIZORAL) 2 % shampooIndicatio ns:Itchy scalp Apply topically once daily as needed for itching 240 mL 08/05/20 20 Active acetaminophen (TYLENOL) 325 mg tablet Per PERNELLSTEVEN HUMA 05/28/20 20 Active pantoprazole (PROTONIX) 40 mg EC tablet Per PERNELLSTEVEN HUMA 05/29/20 20 Active traZODone (DESYREL) 100 mg tablet Per CARLOS BANGURA 07/04/20 20 Active DULoxetine (CYMBALTA) [address] capsule Per CARLOS BANGURA AP 08/05/20 20 Active lancets (FREESTYLE LANCETS) 28 gaugeIndications :Type 2 diabetes mellitus with hyperglycemia, without long-term current use of insulin ([facility]) use to TEST twice a day DXE11.65 100 Each 11 08/10/20 20 Active blood sugar diagnostic (FREESTYLE LITE STRIPS) stripsIndication s:Type 2 diabetes mellitus with hyperglycemia, without long-term current use of insulin ([facility]) use to TEST twice a day DXE11.65 100 Each 11 08/10/20 20 Active alcohol swabsIndications :Type 2 diabetes mellitus with hyperglycemia, without long-term current use of insulin ([facility]) Use to clean skin BID DXE11.65 100 Each 11 08/10/20 20 Active glipiZIDE (GLUCOTROL XL) 10 mg ER, 24 hour tabletIndication s:Type 2 diabetes mellitus without complication, without long-term current use of insulin ([facility]) TAKE 1 TABLET BY MOUTH TWICE DAILY WITH MEALS 60 Tab 08/26/20 20 Active amoxicillin (AMOXIL) 500 mg tablet 4 T 1 HR [facility] 20 Active Active Problems Problem Noted Date Diagnosed Date CAD in [place] artery 07/06/2020 Bilateral carotid artery stenosis 04/26/2020 Overview (04/26/2020): Indications for Study:Carotid stenosis. [facility] 03/15/2020 Right Side: 50-69% stenosis in the Internal Carotid Artery. Antegrade flow in the Vertebral Artery. Multiphasic flow is seen in the Subclavian Artery. Left Side: 50-69% stenosis in the Internal Carotid Artery. Antegrade flow in the Vertebral Artery. Multiphasic flow is seen in the Subclavian Artery. There is no previous exam for comparison. Signature Hx of echocardiogram 04/26/2020 Overview (04/26/2020): TTE procedure:Echo Complete 03/11/2020 [facility] Summary The left ventricle is normal in size, wall thickness and systolic function. The ejection fraction is 55-65%. No regional wall motion abnormalities seen. Grade I, mild diastolic dysfunction with impaired LV relaxation. There is no significant valvular disease. S/P coronary artery bypass graft x 4 04/26/2020 Overview (08/10/2020): [facility] OF PRESENT ILLNESS[place] [facility] [place] cardiology notes We are asked to see the patient in consultation regarding the patient's increasingly significant chest discomfort, positive stress test and multivessel coronary artery occlusive disease. IMPRESSION & PLAN: In summary, the patient is a pleasant 64-year-old gentleman with typical symptoms of exertional chest pain within the setting of a cardiac catheterization documenting severe multivessel coronary artery occlusive disease and a preserved left ventricular ejection fraction. Given the patient's diabetes, and the multiplicity and complexity of patient's coronary atherosclerotic burden, I believe that a surgical myocardial construction would be in the patient's best interest. I discussed with the patient the options of medical management, PCI or surgical myocardial reconstruction. I quoted to the patient a vikash-operative mortality rate of 1-2%. We discussed the patency of coronary conduits and the recurrent rate of angina of 5% annually. We discussed the non fatal complications of surgery including myocardial infarction, stroke, infections, bleeding, multi-system organ failure, prolonged ventilator dependence, etc. We discussed the need for transfusions and its inherent risks. I informed them of our plans to minimize the chances of transfusion All questions were answered. The patient understands these risks. He accepts them and wishes to proceed as outlined above. I anticipate the patient will require CABG x4-5: With a GUERRERO, left radial artery and supplemental vein graft as a graft for coronary reconstruction. Given the patient's otherwise relatively benign medical status and preserved liver check ejection fraction, [place]-Samson catheter will not be required. Indication for Consult F/U CAD S/[place] CAB[place] [facility] [place] History of Present Illness 64-year-old old male former smoker with known history of hypertension, hyperlipidemia, diabetes mellitus type 2, GERD, anxiety was seen in the cardiology clinic in the past for stable angina and underwent a coronary angiogram that showed multivessel CAD and underwent elective CABG x4 (skeletonized left internal mammary artery graft to the LAD, right greater saphenous vein graft to the RCA, endarterectomy of the RCA, right greater saphenous vein graft to the diagonal branch of the LAD, left radial artery graft to the OM1) the 24th. Operatively patient developed inferior STEMI and underwent RCA endarterectomy. He was discharged on fixed dose of amiodarone that he has discontinued. He has been taking all his other medications. He has completed 4 sessions of cardiac rehab without any difficulty. His blood pressure and blood sugar during the rehab visits have been adequate. On inquiring about chest pain, patient told that in the past he used to get chest pain on exertion and currently he has not been having any chest pain. He denies any shortness of breath, palpitation, lightheadedness, dizziness, syncope. He did not have any other complaints except that he would like to visit the clinic in person Seronegative inflammatory ar thritis - F/U Rheum Dr. Nelson 03/17/2019 Overview (09/17/2019): 03/13/19 - Seen by RHEUM Dr. Nelson: pt w/ mild-mod seroneg inflammatory arthropathy. Given lack of findings c/w gout in the recurrent nature of the sxs , will start on mild dz modifying med to prevent continuation of sxs. Started on Sulfasalazine 500 mg BID. C/w PRN Meloxicam. F/U 1 month for re-eval. Discussed ADRs of sulfasalazine including decreased WBC and anemia. 04/21/19 - [facility] F/U: Pt with inflammatory arthropathy of the R knee. He is continuing to have pain and stiffness with some swelling so today we will increase dose of Sulfasalazine to 1000 mg BID. Knee drained and injected today. F/U 3 mos 08/19/19 - [facility] F/U: Pt w/ recurrent mildly inflammatory efussion on R knee w/ finding of synovitis on arthroscopic procedure. Unclear etiology of sxs. Started on Prednisone 5 mg Qd x 4 wks. C/w Sulfasalazine and meloxicam. F/U 4 wks. Right lateral epicondylitis - F/U [facility] 8 Overview (01/05/2018): 11/20/17 - [facility]: c/o L lateral elbow pain x several months. Tx: cortisone injection (celestone 3 mg). Prescription for epicondylar strap was given. F/U in 6 weeks if no improvement. cataract of both eyes 11/18/2017 Overview (11/18/2017): Diabetic eye exam 10/31/17: cataracts both eyes, monitor Q yr Insomnia 01/26/2015 Overview (08/08/2016): PSYCH F/U 130 [facility] [place] SEE'S ISIDRA VOGT Left lateral ankle swelling 01/26/2015 Overview (08/08/2016): -s/p left ankle lateralizing calcaneal osteotomy, os trigonum excision, peroneal tendon debridement, brostrom reconstruction, peroneus brevis to fibular tendon transfer) via Dr. Hampton 07/19/16. Prior hx: -F/u [facility] and [facility] pain management. MRI 06/06/15 at [facility] revealed moderate sized ankle joint effusion consistent with tibiotalar synovitis. Osteochondral injury within medial talar dome. No benefit left ankle periarticular injection 12/23/15, s/p aspiration and injection left intra-articular (sinus tarsi) 02/17/16 Anxiety and depression 03/19/2014 Overview (08/08/2016): PSYCH F/U 130 [facility]. SEE'S ISIDRA VOGT Peyronie's disease 09/16/2013 Overview (09/16/2013): F/U UROLOGY. Vitamin B12 deficiency anemia 12/13/2010 Low back pain 11/24/2010 Overview (07/28/2013): S/p L5-S1 Fusion via Dr. Chaudhry 07/2012. Right knee pain - Hx recurrent R knee effusions 05/20/2010 Overview (08/01/2018): RECURRENT RIGHT KNEE EFFUSIONS. 02/07/18 - [facility] for L knee effusion. Pt wanted to have fluid drained from L knee, but there is not enough fluid to drain. Steroid injection given instead. He can get injection Q 4 mos. XRAY BILAT KNEES done in office which showed patellofemoral degenerative change and narrowing in the medial compartment of the R knee and to a lesser extent the Left. 07/24/18 - 09/03/18: PRoEx PT2x/wk x 6 wks Hyperlipidemia LDL goal <100 07/06/2009 Overview (07/28/2013): DIET CONTROL. Type 2 diabetes mellitus without complication ([facility]) 06/28/2009 Overview (01/26/2015): Dx at age 42. ED (erectile dysfunction) Overview (06/13/2017): Due to Peyronie's s/p penile implant now on urology f/u in [place] Tobacco abuse disorder Immunizations Immunization Administration Dates Next Due Flu, Preservative Free 08/28/2019,2017,08/14/2017,08/08 Hep B, Adult/Adol (ENERGIX/RECOMBIVAX) 1 ,04/02/2019,02/20/2019,12/06,08/03/2009,07/06/2009 History Of Varicella 06/02/2009 INFLUENZA, SEASONAL, INJECTABLE 07/21/2015,07/28,08/21/2012 INFLUENZA, SEASONAL, INJECTA BLE, PRESERVATIVE FREE 07/21/2015 MMR (MMR II/Priorix) 07/06/2009,06/02/2009 Novel [id number], injectable 12/06/2009 PNEUMOCOCCAL CONJUGATE PCV 13 08/08/2016 PNEUMOCOCCAL POLYSACCHARIDE PPV23 (Pneumovax 23) 08/14/2017 PPD 10/10/2017,07/15/2014,06/02/2009 TDAP 06/02/2009 Td(adult),2 Lf tetanus toxoid,preservative free 07/06/2009 Family History Medical History Relation Name Comments Diabetes Brother Diabetes Mother Hypertension Mother Diabetes Sister Relation Name Status Comments Brother Mother Sister Social History Tobacco Use Types Packs/Day Years Used Date Smoking Tobacco: Former Cigarettes 0.3 25 Smokeless Tobacco: Never Tobacco Cessation:Ready to Q uit: No; Counseling Given: Yes Comments:Quit a month ago per pt as of 07/16/18 after 25 years Alcohol Use Standard Drinks/Week Comments No 0 (1 standard drink = 0.6 oz pur e alcohol) Social Connections Answer Date Recorded Connectedness 0 06/07/2020 Financial Resource Strain Answer Date R ecorded Financial Resource Strain 0 2019 Stress Answer Date Recorded Stress 0 06/07/2020 Physical Activity Answer Date Recorded Physical Activity 0 06/07/2020 Food Insecurity Answer Date Recorded Food 0 06/07/2020 Transportation Needs Answer Date Record ed Transportation 0 06/07/2020 Housing Stability Answer Date Recorded Housing 0 06/07/2020 Safety and Environment Answer Date Yoni rded Safety 0 06/07/2020 Utilities Answer Date Recorded Utilities 0 06/07/2020 Employment Answer Date Recorded Stress 0 06/07/2020 Sex and Gender Information Value Date Recorded Sex Assigned at Male 08/14/2017 12:21 PM PDT Legal Sex Male 11:36 AM PDT Gender Identity Male 08/14/2017 12:21 PM PDT Sexual Orientation Straight 08/14/2017 12 :21 PM PDT Last Filed Vital Signs Vital Sign Reading Time Taken Comments Blood Pressure 120/70 09/18/2019 2:22 PM EST Pulse 76 09/18/2019 2:22 PM EST Temperature 36.9 ??C (98.5 ??F) 09/18/2019 2:22 PM ES T Respiratory Rate 16 09/18/2019 2:22 PM EST Oxygen Saturation 98% 09/18/2019 2:22 PM EST Inhaled Oxygen Concentration - - Weight 97.5 kg (215 lb) 09/18/2019 2:22 PM EST Height 177.8 cm (5' 10 ) 09/18/2019 2:22 PM EST Body Mass Index 30.85 09/18/2019 2:22 PM EST Plan of Treatment Not on file
--- NOTE | 2025-03-06 07:56 | CA_ITS ---
Transthoracic Echocardiogram Patient (Last, First, Middle): Neville Pablo, Gender: Male Date of : 1955 Age: 69 Procedure Date: 03/06/2025 Procedure Type: Transthoracic Echocardiogram Location: OP Height: 175.26 cm Weight: 77.11 kg BSA: 1.93 m2 Heart Rate: bpm BP: 116 / 60 mmHg Associate Product Manager: Referring MD: Som Jimenez MD Symptoms: I25.10 - Atherosclerotic heart disease of [place] coronary artery without... Study Quality: Fair ECG Rhythm: Sinus Conclusions: - The left ventricular systolic function is normal. The calculated ejection fraction is 60% by biplane method. - No obvious valvular pathology seen on this study. Findings Left Ventricle Normal left ventricular cavity size. There is mildly increased left ventricular wall thickness. The left ventricular systolic function is normal. The calculated ejection fraction is 60% by biplane method. There is no evidence of regional wall motion abnormalities. Diastolic function is normal for age. Right Ventricle Normal right ventricular cavity size. There is mildly decreased right ventricular systolic function. Atria Both atria are normal in size. Aortic Valve There is a normal trileaflet aortic valve. There is no aortic valve stenosis. There is no aortic valve regurgitation. Mitral Valve The mitral valve appears normal. There is trace mitral valve regurgitation. There is no mitral valve stenosis. Pulmonic Valve The pulmonic valve is likely normal. Tricuspid Valve There is trace tricuspid valve regurgitation. There is no evidence of pulmonary hypertension. Great Vessels The asc aorta is normal in size. Venous The inferior vena cava is normal in size and collapses less than 50% with inspiration. Pericardium/Pleural There is no evidence of pericardial effusion. Prior Study Comparison No prior study available for comparison. Recommendations, Care & Conclusions No obvious valvular pathology seen on this study. Measurements 2D Linear Measurements IVSd: 1.15 0.6-0.9/0.6-1.0 cm LVIDd: 4.25 3.9-5.3/4.2-5.9 cm LVIDd Index: 2.20 2.4-3.2/2.2-3.1 cm/m2 LVIDs: 2.82 2.0-3.6 cm LVPWd: 1.08 0.7-1.1 cm Ao Root: 3.30 2.1-3.5 cm LA Diam: 3.20 2.7-3.8/3.0-4.0 cm LAIDs Index: 1.66 1.5-2.3 cm/m2 LV Mass: 203.15 67-162/88-224 g LV Mass Index: 105.26 43-95/49-115 g/m2 LVOT Diam: 2.30 3.0+(-)1.3 cm 2D Systolic Function EF 4C: 70.30 >55% EF 2C: 47.70 >55% EF BiP: 60.10 >55% Mitral Valve MV Pk E: 0.53 MV PK A: 0.65 MV Decel Time: 187.00 E/A: 0.80 E'Lateral: 10.30 E'Medial: 5.55 E/E' Med: 9.60 E/E' Lat: 5.20 PHT: 55.00 MVA PHT: 4.00 Decel Banks: 2.85 Aortic Valve AoV Pk Gil: 1.00 AoV Mn Gil: 0.70 AoV VTI: 0.24 AoV Pk Grad: 4.00 Aov Mn Grad: 2.00 JOSÉ MIGUEL Cont.VTI: 3.17 LVOT LVOT Pk Gil: 0.77 LVOT Mn Gil: 0.49 LVOT VTI: 0.19 LVOT Pk Grad: 2.00 LVOT Mn Grad: 1.00 LVOT Diam: 2.30 LVOT Area: 4.15 Diastolic Function MV Pk E: 0.53 MV Pk A: 0.65 E/A: 0.80 E'Medial: 5.55 E/E' Med: 9.60 E' Laterial: 10.30 E/E' Lat: 5.20 Right Ventricle TAPSE (mm): 18.00 TVS' Gil: 8.00 Tricuspid Valve TR Pk Gil: 1.57 TR Pk Grad: 10.00 RA Press: 3.00 RVSP: 13.00 Great Vessels Aorta Ao Root-2D: 3.30 2.0-3.7 cm Ao Asc: 3.30 2.1-3.4 cm Pulmonary Valve PV Pk Gil: 0.98 Peak PV Grad: 4.00 Updated in Other Vendor System with Status of Final Devang Smith MD electronically signed on 03/07/2025 1:07:10 PM with status of Final
--- NOTE | 2025-03-06 07:56 | CA_ITS ---
Acquisition Time: 2025-03-06 09:02:41 Total Exercise Time: 00:06:03 Test Indications: CAD Medications: SEE H&P Protocol: KEN Max HR: 133 BPM 86% of Pred: 153 BPM Max BP: 146/74 mmHG Max Work Load: 7.0 METS Exercise stress test with exercise 4 mins 55 secs of Ken Protocol, achieving 78% MPHR, requesting to stop due to fatigue, no chest pain or SOB. Test switched to Lexiscan. Pharmacological stress test with Lexiscan while pt swings his legs in chair, with reports of SOB and nausea, with isolated PVCs, with normotensive response to injection. Nondiagnostic EKG for ischemia. In recovery, pt treated with IVP Aminophylline 75 mg to reverse Lexiscan, after which pt feeling back to baseline. Nuclear images pending. Test reviewed with Dr. Smith. Referred By: Som Jimenez Electronically Signed By: Fransico Manley
[2025-03-06 09:31] LABS: Cholesterol 150 mg/dL (<200); HDL Cholesterol 49 mg/dL (>40); LDL Cholesterol Calculated 88 mg/dL (<100); Triglycerides 66 mg/dL (<150)
== END ==
LOC: HO.CARD 07:48
PROVIDERS: PCP Hospitalist; Visit Provider Internal Medicine Cardiovascular Disease
DX: I25.10 Atherosclerotic heart disease of native coronary artery without angina pectoris (principal)
CPT/HCPCS: 36415; 80061; 93017; 93306; J0280; J2785

== ENCOUNTER → 2025-03-06 07:56 | Outpatient (BNV) | payer MEDICARE, MEDICAID, SELFPAY | PROVIDERS: PCP Hospitalist | DX: I25.10 Atherosclerotic heart disease of native coronary artery without angina pectoris (principal) | CPT/HCPCS: 78452; 93016; 93018; 93320; 93325; 93350 ==

== ENCOUNTER 2025-06-17 13:34 | Outpatient (AMB) | payer MEDICARE, MEDICAID, SELFPAY ==
--- NOTE | 2025-06-17 13:34 | MHC.OFFVIS ---
Intake Visit Reasons: 1y follow up Intake Note: Patient is present for 1Y Follow Up Urology Med:none Antibiotic Allergy: None Blood Thinner: Aspirin PVR:20 ML Beater Machine Operator Required: No Accompanied by: Self / Same As Patient Allergies No Known Allergies (No Known Allergies*) Allergy (Verified 06/17/25 13:35) HPI Comments Details: Neville is a pleasant [place] male. He is a patient of Dr. Kenyon. He is seen for the following urologic conditions - erectile dysfunction Yearly follow-up Lower urinary tract symptoms Nocturia Erectile dysfunction - malfunctioning penile pump Penile prosthetic placed 2015. Unable to use pump. Pump examined in office today Difficult to initiate compression of both pump bulb and lockout mechanism Pump was reset and inflation cycle completed Despite reset with cycle completion patient would like to pursue conversion to semi rigid prosthetic Revision prosthetic 10/19 2 piece Amb[facility] Medical History (Updated 03/03/25 @ 16:08 by Som Jimenez MD) CAD (coronary artery disease) Snoring STEPHEN (obstructive sleep apnea) Somnolence, daytime Retrognathia Shigella enteritis Elevated cholesterol BPH (benign prostatic hyperplasia) Osteoporosis Anxiety and depression HTN (hypertension) Erectile dysfunction Low back pain Diabetes mellitus Surgical History Hx of appendectomy History of ankle surgery H/O colonoscopy Hx of arthroscopic knee surgery Hx of CABG History of back surgery History of penile implant Social History Household Members: Family Patient Tobacco Use Status: Former Tobacco user Tobacco use type: Cigarette service: No Review of Systems Const Denies chills and Denies fever(s) Card Reports no additional complaints and Denies syncope Resp Denies cough GI Denies abdominal pain and Denies heartburn Reports as per HPI and Denies change in libido Neuro Denies syncope Psych Denies change in libido Endo Denies change in libido Physical Exam Const General: cooperative, healthy appearing, comfortable and no acute distress Orientation/consciousness: patient oriented x3 HEENT Face and sinus: Yes normal facial exam Mouth: moist mucous membranes Neck Neck: Yes normal visual inspection, Yes full ROM and Yes trachea midline Chest Chest palpation & inspection: normal inspection of the chest Resp Effort & Inspection: normal respiratory effort, able to speak in complete sentences and no respiratory distress GI Inspection: Yes normal to inspection Back/Spine/Pelvis Cervical Spine: normal cervical lordosis Thoracic/Lumbar Spine: thoracic and lumbar spine normal to inspection Skin General skin exam: no rashes or lesions noted Neuro General: patient oriented x3, gait normal, tone normal and moves all extremities Extrem General: Yes normal to inspection and Yes capillary refill normal Assessment & Plan Assessment & Plan (1) Erectile dysfunction: Code(s): N52.9 - Male erectile dysfunction, unspecified Category: Medical Plan P.r.n. follow-up Patient Instructions: This note is constructed using voice recognition software. While every effort has been made to ensure accuracy systems administration analyst errors may have been included. Imaging studies, laboratory and physical exam results were discussed and reviewed in detail. No major barriers to patient understanding were identified. An opportunity to ask questions regarding the treatment plan was provided. All questions were answered. The patient expressed understanding and agreement with the above treatment plan. The patient is aware they should contact our office by phone for worsening of their current condition or the appearance of new urologic symptoms. Compliance is encouraged with any medications and followup testing that is ordered. It is a privilege to participate in the urologic care of your patient. If you have any questions or concerns regarding treatment for the above conditions, or other urologic issues, please do not hesitate to contact me. The office telephone contact is [phone]. Sincerely, Dr Thony Lord MD, [facility] - Urology Compassionate Specialist Care for the Genitourinary System Coding Level of Care Code Est Pt Level 3 (06869) Diagnoses Erectile dysfunction N52.9
--- OUTSIDE RECORDS SUMMARY | 2025-06-17 14:29 | XMS_ITS | Encounter Summary ---
Author Organization [facility] Address [address] [place] [address] Support Name Relationship Address Phone Tesfaye Pablo Son [id number] [place] [address] Care Team Providers Care Tick Sewer Name Role Phone Shelley Glass PA-C Primary Care Provider [phone] Encounter Details Date Type Department Care Team (Late st Contact Info) Description 2015 Interim Notes [facility]aring [facility] [address] [place] [phone] [place] [address] Social History Tobacco Use Types Packs/Day Years [...] on filedocumented in this encounter Care Teams Tick Sewer Relationship Specialty Start Date End Date Sehlley Glass PA-C [address] [place] [address] PCP - General Internal Medicine 11/15/19 09/14/20 documented as of this encounter
--- OUTSIDE RECORDS SUMMARY | 2025-06-17 14:29 | XMS_ITS | Patient Health Record ---
Author Organization [facility] Address [address] [place] [address] Care Team Providers Care Fabrication Mig Welder Name Role Phone MICHELLE CHAVEZ Primary Care Provider Kofi Hernandez Unavailable [phone] Allergies No Known Allergies Reason For Referral Reason Foot exam Diagnosis 1 Type 2 diabetes juan luis itus with unspecified complications (E11.8) Referral Organization [facility] Referring Provider First Name KATHY Referring Provider Last Name FERNANDOAdalid Referring Provider Speciality Internal M edicine Referred Provider Specialty Podiatry General Notes Referral faxed to [facility]. Please call patient to schedule.Rachele Crystal 11/26/2024 10:31:23 AM > Referral Priority Routine Medications Medication SIG (Take, Route, Frequency, Duration) Notes Start Date End Date Status Rollator Ultra-Light - as directed R26.89; Duration: 365 days 08/05/2024 Active traZODone HCl 50 MG 1 tablet at bedtime Orally Once a day; Duration: 30 days Active FreeStyle Lite - as directed once a day; Duration: 30 days 06/06/2022 Active Lantus SoloStar 100 UNIT/ML 5 units Subcutaneous once a day; Duration: 90 days Active DULoxetine HCl 60 MG 1 capsule Orally Once a day; Duration: 30 day(s) Active Vitamin B-12 1000 MCG TAKE 1 TABLET BY MOUTH EVERY DAY FOR 90 DAYS; Duration: 90 Active sulfaSALAzine 500 MG 1 tablet Orally Once a day Active Ozempic (2 MG/DOSE) 8 MG/3ML 2 mg Subcutaneous once a week; Duration: 30 days Active Methotrexate 2.5 MG as directed Orally Active metFORMIN HCl 1000 MG TAKE 1 TABLET BY MOUTH TWICE A DAY WITH A MEAL FOR 90 DAYS; Duration: 90 Active Blood Glucose Test Strips 333 - as directed test 4X a day to check BS In Vitro 4x a day; Duration: 90 days 05/07/2023 Active Fluocinonide 0.05 % 1 application Externally Twice a day Not-Taking Accu-Chek Briana Plus w/Device as directed; Duration: 30 days 05/07/2023 Active Tacrolimus 0.1 % as directed Externally Not-Taking FreeStyle Lite Test - 1 strip DAW1 Dx: E11.8 In Vitro 4 times a day; Duration: 90 days 10/26/2021 Active Mounjaro 2.5 MG/0.5ML 2.5 MG Subcutaneous once weekly; Duration: 30 days 03/19/2024 Not-Taking FreeStyle Lancets - 1 lancet 1 strip DAW1 Dx: E11.8 once a day; Duration: 90 days 10/26/2021 Active Lactulose 20 GM/30ML 15 mL as needed Orally Once a day; Duration: 30 days 03/09/2025 Active Jardiance 25 MG TAKE 1 TABLET BY MOUTH EVERY DAY; Duration: 90 Active Accu-Chek Guide w/Device as directed; Duration: 30 days 05/30/2023 Active Accu-Chek Briana Plus - 1 strip DX: E11.8 In Vitro four times daily; Duration: 90 days 05/07/2023 Active Accu-Chek FastClix Lancets - three times a day Dx: E11.8; Duration: 90 days 06/05/2023 Active Vitamin D3 25 MCG (1000 UT) 1 tablet Orally Once a day; Duration: 90 days 09/22/2020 Active Gabapentin 300 MG 2 capsule Orally AT BED TIME; Duration: 30 days Active Trulicity 4.5 MG/0.5ML 4.5mg Subcutaneous once a week; Duration: 90 days Active BD Pen Needle Alysha U/F 32G X 4 MM 1 needle with Lantus once a day; Duration: 90 days 06/06/2023 Active Accu-Chek Guide Test - USE TO CHECK BLOOD SUGAR 4 TIMES A DAY DIRECTED 75; Duration: 75 Active Anusol-HC 2.5 % 1 application Externally Twice a day; Duration: 30 days 03/20/2025 Active Topiramate ER 25 MG 1 capsule Orally Once a day; Duration: 30 day(s) Not-Taking Rollator Ultra-Light - Dx; R26.81; Duration: 90 days 03/20/2025 Active Atorvastatin Calcium 40 MG 1 tablet Orally Once a day; Duration: 90 days 09/02/2020 Active glipiZIDE ER 10 MG 1 tablet with food Orally twice a day; Duration: 90 days Not-Taking Zolpidem Tartrate 10 MG 1 tablet at bedtime as needed Orally Once a day Active Omeprazole 20 MG 1 capsule 30 minutes before morning meal Orally Once a day Not-Taking Humira 40 MG/0.8ML 0.8 mL Subcutaneous Active Baclofen 10 MG/20ML as directed Intrathecal Not-Taking Senna-S 8.6-50 MG 1 tablet as needed Orally Once a day; Duration: 30 days Coalace has been discontinued 03/20/2025 Active Aspirin Low Dose 81 MG TAKE 1 TABLET BY MOUTH EVERY DAY FOR 90 DAYS; Duration: 90 Active Cyclobenzaprine HCl 10 MG 1 tablet Orally three times a day Not-Taking Immunizations Vaccine Route Administration Date Status Comme [...] W/U Status Risk Notes Problem Pernicious anemia (77517835) Vitamin B12 deficiency anemia due to intrinsic factor deficiency (D51.0) Active confirmed Problem Diabetic neuropathy (285064932) Diabetes mellitus due to underlying condition with diabetic neuropathy, unspecified (E08.40) Active confirmed Problem Disorder due to type 2 diabetes mellitus (066869334) Type 2 diabetes mellitus with unspecified complications (E11.8) Active confirmed Problem Type II diabetes mellitus without complication (235542615) Type 2 diabetes mellitus without complications (E11.9) Active confirmed Problem Mixed hyperlipidemia (333547765) Mixed hyperlipidemia (E78.2) Active confirmed Problem Moderate recurrent major depression (30326086) Major depressive disorder, recurrent, moderate (F33.1) Active confirmed Problem Generalized anxiety disorder (14648201) Generalized anxiety disorder (F41.1) Active confirmed Problem Obstructive sleep apnea syndrome (disorder) (94344131) Obstructive sleep apnea (adult) (pediatric) (G47.33) Active confirmed Problem 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 (625891798) Atherosclerosis of coronary artery bypass graft(s) without angina pectoris (I25.810) Active confirmed Problem Carotid artery occlusion (119851041) Occlusion and stenosis of unspecified carotid artery (I65.29) Active confirmed Problem Gastroparesis (166918686) Gastroparesis (K31.84) Active confirmed Problem Inflammatory polyarthropathy (149382031) Inflammatory polyarthropathy (M06.4) Active confirmed Problem Osteoarthritis (584550373) Polyosteoarthritis , unspecified (M15.9) Active confirmed Problem Dysphagia (05291449) Dysphagia, unspecified (R13.10) Active confirmed Problem Abnormal gait (66524295) Other abnormalities of gait and mobility (R26.89) Active confirmed Problem Essential hypertension (55110043) Essential (primary) hypertension (I10) Active confirmed Problem Chronic idiopathic constipation (51570949) Chronic idiopathic constipation (K59.04) Active confirmed Problem Benign prostatic hypertrophy without outflow obstruction (642333953) Benign prostatic hyperplasia without lower urinary tract symptoms (N40.0) Active confirmed Vital Signs Heart Rate 70 /min 03/20/2025 Temperature 95.9 degrees Fahrenheit 03/20/2025 Oximetry 97 % 03/20/2025 Blood pressure diastolic 70 mm Hg 03/20/2025 Height 69 in 03/20/2025 Blood pressure systolic 122 mm Hg 03/20/2025 Weight 165.7 lbs 03/20/2025 BMI 24.47 kg/m2 03/20/2025 Encounters Encounter Location Date Provider Diagnosis [facility] [address] [address] 08/05/2024 [place]ry[place] Type 2 diabetes juan luis itus with unspecified complications E11.8 ; Encounter for [...] unspecified E08.40 and Generalized anxiety disorder F41.[address] [place] [address] 03/20/2025 [place] Alam Type 2 diabetes juan luis itus with unspecified complications E11.8 ; Chronic idiopathic constipation K59.04 ; Essential (primary) hypertension I10 ; Diabetes mellitus due to underlying condition with diabetic neuropathy, unspecified E08.40 and Hemorrhage of anus and rectum K62.[address] [place] [address] 06/17/[address] [place] [address] 08/05/[address] [place] [address] 09/15/[address] [place] [address] 11/03/[address] [place] [address] 11/13/[address] [place] [address] 12/12/[address] [place] [address] 01/14/[address] [place] [address] 03/09/[address] [place] [address] 03/20/2025 [place] Alam [address] [place] [address] 03/20/2025 Arostephen Hernandez Gastroparesis K31.[address] [place] [address] 03/31/[address] [place] [address] 05/07/[address] [place] [address] 05/12/[address] [place] [address] 06/02/2025 [facility] Assessments Encounter Date Diagnosis (ICD Code) Assessment Notes Treatment Notes Treatment Clinical Notes Section Notes 08/05/2024 Type 2 diabetes mellitus with unspecified complications (ICD-10 - E11.8) Mr. Sullivan is a 68-year-old Thai-speaking gentleman with DM type II, CAD, generalized anxiety disorder, polyosteoarthritis and cervical radiculopathy who is accompanied by his son as an diabetes clinical manager is here for his annual wellness check. [...] the current diabetic medication regime will recheck UpV5wll 6 months if needed we will go up on Lantus a dose. Diabetic neuropathy and severe osteoarthritis he e has multiple joint osteoarthritis including lower back pain, bilateral knee joint pain, and he sees variety saw operator for inflammatory polyarthropathy and has also seen [...] patient has been following up with a chisel trimmer Dr. Chiu in December 2023 at [facility] and ophthalmologyin April 2024 by [facility] considering his comorbidities he needs help with activities of daily living like transferring, lifting, dressing, showering, transportation He is current on his flu shot and pneumonia vaccine 08/05/2024 Encounter for general adult medical examination without abnormal findings (ICD-10 - Z00.00) Mr. Sullivan is a 68-year-old Thai-speaking gentleman with DM type II, CAD, generalized anxiety disorder, polyosteoarthritis and cervical radiculopathy who is accompanied by his son as an diabetes clinical manager is here for his annual wellness check. [...] the current diabetic medication regime will recheck [id number] 6 months if needed we will go up on Lantus a dose. Diabetic neuropathy and severe osteoarthritis he e has multiple joint osteoarthritis including lower back pain, bilateral knee joint pain, and he sees variety saw operator for inflammatory polyarthropathy and has also seen [...] patient has been following up with a chisel trimmer Dr. Chiu in December 2023 at [facility] and ophthalmologyin April 2024 by [facility] considering his comorbidities he needs help with activities of daily living like transferring, lifting, dressing, showering, transportation He is current on his flu shot and pneumonia vaccine 03/20/2025 Type 2 diabetes mellitus with unspecified complications (ICD-10 - E11.8) Mr. Sullivan is a 68-year-old Thai-speaking gentleman with DM type II, CAD, generalized anxiety disorder, polyosteoarthritis and cervical radiculopathy who is accompanied by his son as an diabetes clinical manager is here for complains of constipation, hemorrhoidal pain. chronic constipation with alternating diarrhea symptoms appeared patient is a long-standing diabetic and we will check on gastroparesis workup if there was no gastric emptying test done in the past we will order one. Discussed with patient that if he does not want to take the lactulose that he can try Senokot and Colace appeared he also is complaining of nausea and at times bloating. We discussed about smaller meals frequent meals and increasing physical activity. Will give a prescription for a walker so he can have more mobility. If no gastric emptying study done in the past we will order one. Insulin-dependent diabetes mellitus, patient reports he has discontinued Trulicity and was started on Lantus HbA1c was checked And has improved to 6.1 Peripheral neuropathy and diabetic neuropathy Diabetic neuropathy and severe osteoarthritis he e has multiple joint osteoarthritis including lower back pain, bilateral knee joint pain, and he sees variety saw operator for inflammatory polyarthropathy and has also seen [...] with Dr. Wade for carotid artery stenosis 03/20/2025 Chronic idiopathic constipation (ICD-10 - K59.04) Mr. Sullivan is a 68-year-old Thai-speaking gentleman with DM type II, CAD, generalized anxiety disorder, polyosteoarthritis and cervical radiculopathy who is accompanied by his son as an diabetes clinical manager is here for complains of constipation, hemorrhoidal pain. chronic constipation with alternating diarrhea symptoms appeared patient is a long-standing diabetic and we will check on gastroparesis workup if there was no gastric emptying test done in the past we will order one. Discussed with patient that if he does not want to take the lactulose that he can try Senokot and Colace appeared he also is complaining of nausea and at times bloating. We discussed about smaller meals frequent meals and increasing physical activity. Will give a prescription for a walker so he can have more mobility. If no gastric emptying study done in the past we will order one. Insulin-dependent diabetes mellitus, patient reports he has discontinued Trulicity and was started on Lantus HbA1c was checked And has improved to 6.1 Peripheral neuropathy and diabetic neuropathy Diabetic neuropathy and severe osteoarthritis he e has multiple joint osteoarthritis including lower back pain, bilateral knee joint pain, and he sees variety saw operator for inflammatory polyarthropathy and has also seen [...] with Dr. Wade for carotid artery stenosis 03/20/2025 Gastroparesis (ICD-10 - K31.84) 08/05/2024 Essential (primary) hypertension (ICD-10 - I10) Mr. Sullivan is a 68-year-old Thai-speaking gentleman with DM type II, CAD, generalized anxiety disorder, polyosteoarthritis and cervical radiculopathy who is accompanied by his son as an diabetes clinical manager is here for his annual wellness check. [...] the current diabetic medication regime will recheck [id number] 6 months if needed we will go up on Lantus a dose. Diabetic neuropathy and severe osteoarthritis he e has multiple joint osteoarthritis including lower back pain, bilateral knee joint pain, and he sees variety saw operator for inflammatory polyarthropathy and has also seen [...] patient has been following up with a chisel trimmer Dr. Chiu in December 2023 at [facility] and ophthalmologyin April 2024 by [facility] considering his comorbidities he needs help with activities of daily living like transferring, lifting, dressing, showering, transportation He is current on his flu shot and pneumonia vaccine 03/20/2025 Essential (primary) hypertension (ICD-10 - I10) Mr. Sullivan is a 68-year-old Thai-speaking gentleman with DM type II, CAD, generalized anxiety disorder, polyosteoarthritis and cervical radiculopathy who is accompanied by his son as an diabetes clinical manager is here for complains of constipation, hemorrhoidal pain. chronic constipation with alternating diarrhea symptoms appeared patient is a long-standing diabetic and we will check on gastroparesis workup if there was no gastric emptying test done in the past we will order one. Discussed with patient that if he does not want to take the lactulose that he can try Senokot and Colace appeared he also is complaining of nausea and at times bloating. We discussed about smaller meals frequent meals and increasing physical activity. Will give a prescription for a walker so he can have more mobility. If no gastric emptying study done in the past we will order one. Insulin-dependent diabetes mellitus, patient reports he has discontinued Trulicity and was started on Lantus HbA1c was checked And has improved to 6.1 Peripheral neuropathy and diabetic neuropathy Diabetic neuropathy and severe osteoarthritis he e has multiple joint osteoarthritis including lower back pain, bilateral knee joint pain, and he sees variety saw operator for inflammatory polyarthropathy and has also seen [...] with Dr. Wade for carotid artery stenosis 08/05/2024 Atherosclerosis of coronary artery bypass graft(s) without angina pectoris (ICD-10 - I25.810) Mr. Sullivan is a 68-year-old Thai-speaking gentleman with DM type II, CAD, generalized anxiety disorder, polyosteoarthritis and cervical radiculopathy who is accompanied by his son as an diabetes clinical manager is here for his annual wellness check. [...] the current diabetic medication regime will recheck [id number] 6 months if needed we will go up on Lantus a dose. Diabetic neuropathy and severe osteoarthritis he e has multiple joint osteoarthritis including lower back pain, bilateral knee joint pain, and he sees variety saw operator for inflammatory polyarthropathy and has also seen [...] patient has been following up with a chisel trimmer Dr. Chiu in December 2023 at [facility] and ophthalmologyin April 2024 by [facility] considering his comorbidities he needs help with activities of daily living like transferring, lifting, dressing, showering, transportation He is current on his flu shot and pneumonia vaccine 03/20/2025 Diabetes mellitus due to underlying condition with diabetic neuropathy, unspecified (ICD-10 - E08.40) Mr. Sullivan is a 68-year-old Thai-speaking gentleman with DM type II, CAD, generalized anxiety disorder, polyosteoarthritis and cervical radiculopathy who is accompanied by his son as an diabetes clinical manager is here for complains of constipation, hemorrhoidal pain. chronic constipation with alternating diarrhea symptoms appeared patient is a long-standing diabetic and we will check on gastroparesis workup if there was no gastric emptying test done in the past we will order one. Discussed with patient that if he does not want to take the lactulose that he can try Senokot and Colace appeared he also is complaining of nausea and at times bloating. We discussed about smaller meals frequent meals and increasing physical activity. Will give a prescription for a walker so he can have more mobility. If no gastric emptying study done in the past we will order one. Insulin-dependent diabetes mellitus, patient reports he has discontinued Trulicity and was started on Lantus HbA1c was checked And has improved to 6.1 Peripheral neuropathy and diabetic neuropathy Diabetic neuropathy and severe osteoarthritis he e has multiple joint osteoarthritis including lower back pain, bilateral knee joint pain, and he sees variety saw operator for inflammatory polyarthropathy and has also seen [...] with Dr. Wade for carotid artery stenosis 08/05/2024 Benign prostatic hyperplasia without lower urinary tract symptoms (ICD-10 - N40.0) Mr. Sullivan is a 68-year-old Thai-speaking gentleman with DM type II, CAD, generalized anxiety disorder, polyosteoarthritis and cervical radiculopathy who is accompanied by his son as an diabetes clinical manager is here for his annual wellness check. [...] the current diabetic medication regime will recheck [id number] 6 months if needed we will go up on Lantus a dose. Diabetic neuropathy and severe osteoarthritis he e has multiple joint osteoarthritis including lower back pain, bilateral knee joint pain, and he sees variety saw operator for inflammatory polyarthropathy and has also seen [...] patient has been following up with a chisel trimmer Dr. Chiu in December 2023 at [facility] and ophthalmologyin April 2024 by [facility]'s considering his comorbidities he needs help with activities of daily living like transferring, lifting, dressing, showering, transportation He is current on his flu shot and pneumonia vaccine 03/20/2025 Hemorrhage of anus and rectum (ICD-10 - K62.5) Mr. Sullivan is a 68-year-old Thai-speaking gentleman with DM type II, CAD, generalized anxiety disorder, polyosteoarthritis and cervical radiculopathy who is accompanied by his son as an diabetes clinical manager is here for complains of constipation, hemorrhoidal pain. chronic constipation with alternating diarrhea symptoms appeared patient is a long-standing diabetic and we will check on gastroparesis workup if there was no gastric emptying test done in the past we will order one. Discussed with patient that if he does not want to take the lactulose that he can try Senokot and Colace appeared he also is complaining of nausea and at times bloating. We discussed about smaller meals frequent meals and increasing physical activity. Will give a prescription for a walker so he can have more mobility. If no gastric emptying study done in the past we will order one. Insulin-dependent diabetes mellitus, patient reports he has discontinued Trulicity and was started on Lantus HbA1c was checked And has improved to 6.1 Peripheral neuropathy and diabetic neuropathy Diabetic neuropathy and severe osteoarthritis he e has multiple joint osteoarthritis including lower back pain, bilateral knee joint pain, and he sees variety saw operator for inflammatory polyarthropathy and has also seen [...] with Dr. Wade for carotid artery stenosis 08/05/2024 Obstructive sleep apnea (adult) (pediatric) (ICD-10 - G47.33) Mr. Sullivan is a 68-year-old Thai-speaking gentleman with DM type II, CAD, generalized anxiety disorder, polyosteoarthritis and cervical radiculopathy who is accompanied by his son as an diabetes clinical manager is here for his annual wellness check. [...] the current diabetic medication regime will recheck [id number] 6 months if needed we will go up on Lantus a dose. Diabetic neuropathy and severe osteoarthritis he e has multiple joint osteoarthritis including lower back pain, bilateral knee joint pain, and he sees variety saw operator for inflammatory polyarthropathy and has also seen [...] patient has been following up with a chisel trimmer Dr. Chiu in December 2023 at [facility] and ophthalmologyin April 2024 by Uli [facility]'s considering his comorbidities he needs help with activities of daily living like transferring, lifting, dressing, showering, transportation He is current on his flu shot and pneumonia vaccine 08/05/2024 Diabetes mellitus due to underlying condition with diabetic neuropathy, unspecified (ICD-10 - E08.40) Mr. Sullivan is a 68-year-old Thai-speaking gentleman with DM type II, CAD, generalized anxiety disorder, polyosteoarthritis and cervical radiculopathy who is accompanied by his son as an diabetes clinical manager is here for his annual wellness check. [...] the current diabetic medication regime will recheck [id number] 6 months if needed we will go up on Lantus a dose. Diabetic neuropathy and severe osteoarthritis he e has multiple joint osteoarthritis including lower back pain, bilateral knee joint pain, and he sees variety saw operator for inflammatory polyarthropathy and has also seen [...] patient has been following up with a chisel trimmer Dr. Chiu in December 2023 at [facility] and ophthalmologyin April 2024 by Uli newton's considering his comorbidities he needs help with activities of daily living like transferring, lifting, dressing, showering, transportation He is current on his flu shot and pneumonia vaccine 08/05/2024 Generalized anxiety disorder (ICD-10 - F41.1) Mr. Sullivan is a 68-year-old Thai-speaking gentleman with DM type II, CAD, generalized anxiety disorder, polyosteoarthritis and cervical radiculopathy who is accompanied by his son as an diabetes clinical manager is here for his annual wellness check. [...] the current diabetic medication regime will recheck [id number] 6 months if needed we will go up on Lantus a dose. Diabetic neuropathy and severe osteoarthritis he e has multiple joint osteoarthritis including lower back pain, bilateral knee joint pain, and he sees variety saw operator for inflammatory polyarthropathy and has also seen [...] patient has been following up with a chisel trimmer Dr. Chiu in December 2023 at [facility] and ophthalmologyin April 2024 by Uli newton's considering his comorbidities he needs help with activities of daily living like transferring, lifting, dressing, showering, transportation He is current on his flu shot and pneumonia vaccine Plan Of Treatment Pending Test Test Name Order Date Gastric Emptying Study 03/20/2025 25OH VITAMIN D 03/01/2023 CBC (COMPLETE BLOOD COUNT) 03/01/2023 METHYLMALONIC ACID, SERUM 03/01/2023 POTASSIUM 04/10/2022 TSH WITH REFLEX TO FT4 03/01/2023 VITAMIN B12 03/01/2023 Hemoglobin [id number] 08/05/2024 Future Test Test Name Order Date Hemoglobin [id number] 03/10/2024 Albumin/Creatinine Ratio,[id number] Lipid [id number] 03/10/2024 Comp. Metabolic Panel [id number] 2023 Next Appt Details Provider Name:Kofi Hernandez, 1 10:30:00 AM, [address] [place] [address], [place], [address], Insurance Providers Payer Name Payer Address Payer Phone Subscriber Number Group Number Insured Name Patient Relationship to Insured Coverage Start Date Coverage End Date [employer] Medicare [address] [address] [place] [address] [id number] Neville Jose Self - patient is the insured Medications Administered Medication Instructions Date of Administration Dosage Notes B12 05/25/2022 1 mL Vitamin B-12 09/10/2023 1 mL Medical (General) History Medical History History ICD Code hypertension, benign hyperlipidemia CAD at [facility] Anxiety/depression See Dr. Jamil Osteoarthritis see [facility], and also Dr. Mccollum BPH see urology at [facility] Right knee joint/left ankle pain DM T 2, Dr. Beebe podiatry Personal history of COVID-19 Mild STEPHEN, Occlusion and stenosis of Left carotid, Sees Dr. Wade Surgical History Surgery Date(Month/Year) CABG TIME 5 at [facility] 2020 Right knee pain Left ankle pain by Dr Pedroza Back surgery
--- OUTSIDE RECORDS SUMMARY | 2025-06-17 14:29 | XMS_ITS | Continuity of Care Document ---
Author Organization [facility] [address] [place] [address] Phone [phone] Care Team Providers Care Charge Aide Name Role Phone Ko Kenyon M.D. Care Team Information Receive r [phone] Problems Active Problems Provider Date Essential hypertension [...] Social History Type Date Description Comments Sex Male Sex Unknown ETOH Use Rarely consumes alcohol Tobacco Use Start: Unknown End: Unknown Patient is a former smoker Allergies and adverse reactions Description No Known Drug Allergies Medications Active Medications SIG Qnty Indications Order ing Provider Date Kjsuqfkn2dh/0.5ML Solution Auto-Inject inject 0.5ml every week 6ml Faisal Osuna M.D. 04/29/2025 [id number] Capsules 2 tablets by mouth before bed 180caps Faisal Osuna M.D. 06/03/2024 Freestyle [place] 2/Sensor/Flash Glucose Monitoring Rtqqjm4Vomzrl Misc 1 sensor to skin every fourteen days as directed 6units Faisal Osnua M.D. 11/27/2023 Methotrexate Sodium2.5mg Tablets Take 4 Tablets By Mouth Once Per Week Call To Schedule Labs Luke Nelson Bjnqrpzlk13wh Tablets Take 1 Tablet By Mouth Every Day For 90 Days Ko Kenyon M.D. D-1000 Extra Cdhurqwx31xqc (1000 Ut) Tablets Take 1 Tablet By Mouth Every Day For 90 Days Ko Kenyon M.D. Metformin [id number] Tablets Take 1 Tablet By Mouth Twice A Day With A Meal For 90 Days Ko Kenyon M.D. Duloxetine OGI29ev Caps DR Part Take One Capsule By Mouth Every Day After Breakfast Unknown Aspirin Low Qogr81fw Tablets DR Take 1 Tablet By Mouth Every Day For 90 Days Ko Kenyon M.D. Zolpidem Issawbbh53ph Tablets Take One Tablet By Mouth Every Day AT Bedtime as Needed Unknown History Medications Mounjaro7.5mg/0.5ML Solution Auto-Inject inject 0.5ml every week 6ml Faisal Osuna M.D. 09/03/2024 - 04/29/2025 Vital Signs Date Vital Result Comment 04/29/2025 10:50am BP Systolic 100 mmHg BP Diastolic 60 mmHg Heart Rate 72 /min Height 69 inches 5'9 Weight 167.25 lb BMI (Body Mass Index) 24.7 kg/m2 Results Test Acquired Date Facility Test Result H/L [facility] Hemoglobin A1c 04/29/2025 Inhouse Hemoglobin A1c 6.0% Glucose Fingerstick 04/29/2025 Inhouse Glucose Fingerstick 139 Hemoglobin A1c 12/10/2024 Inhouse Hemoglobin A1c 6.5% [...] Date Location Provider Dx Diagnosis Office Visit 04/29/2025 10:45a Main Office Faisal Osuna M.D. E11.40 Type 2 diabetes mellitus with diabetic neuropathy, unsp E11.8 Type 2 diabetes juan luis itus with unspecified complications Assessments Date Code Description Provider 04/29/2025 E11.40 Diabetic peripheral neuropat hy Faisal Osuna M.D. 04/29/2025 E11.8 Complication due to diabetes mellitus Faisal Osuna M.D. Plan of Treatment Future Appointment(s):* 09/15/2025 2:45 pm - Faisal Osuna M.D. at Main Office 06/03/2024 - Faisal Osuna M.D.* E11.8 Complication due to diabetes mellitus * E11.40 Diabetic peripheral neuropathy * Functional Status Description No Information Available Mental Status Description No Information Available Referrals Description No Information Available
--- OUTSIDE RECORDS SUMMARY | 2025-06-17 14:29 | XMS_ITS | Clinical Summary ---
Author Organization [facility] Address [address] [place] [address] Phone Care Team Providers Care Supervisor Long Goods Name Role Phone Ko Kenyon MD Primary Care Provider [phone] Allergies No known active allergies Medications menthol gel Apply 1 Application topically 1 (one) time each day. 100 g 2 Active Encounters Date Type Department Care Team Description 05/21/2025 1:15 PM EDT Office Visit Orthopedic Surgery - [place] [address] [facility] [address] [place] [phone] Shine Quiroz DPM Controlled type 2 diabetes with neuropathy (CMS/[facility] V24, CMS/[facility] V28) (Primary Dx); PAD (peripheral artery disease) ([facility] V24); Arthritis of both feet; Dermatophytosis, nail from Last 3 Months Surgical History Surgery Date Site/Laterality Comments KNEE SURGERY PROCEDURE: HISTORICAL KNEE SURGERY ANKLE SURGERY PROCEDURE: HISTORICAL ANKLE SURGERY BACK SURGERY PROCEDURE: HISTORICAL BACK SURGERY APPENDECTOMY PROCEDURE: RI APPENDEC INDICATED PURPOSE OTH MAJOR PX NOT SPX COLONOSCOPY PROCEDURE: HISTORICAL COLONOSCOPY COLONOSCOPY PROCEDURE: HISTORICAL COLONOSCOPY; COMMENT: Reports colonoscopy several years ago told study was normal Medical History Medical History Date Comments Diabetes (CMS/HCC V24, CMS/[facility] V28) DX:Diabetes ([facility]) Arthritis DX:Arthritis Scalp cyst DX:Scalp cyst Coronary [...] - Inhaled Oxygen Concentration - - Weight 78.9 kg (174 lb) 03/11/2025 2:22 PM EDT Height 175.3 cm (5' 9 ) 03/11/2025 2:22 PM EDT Body Mass Index 25.7 03/11/2025 2:22 PM EDT Plan of Treatment Upcoming Encounters Date Type Department Care Team (Late st Contact Info) Description 07/01/2025 1:30 PM EDT Ancillary Procedure [facility] [address] [facility] [address] [place] [address] 07/23/2025 1:45 PM EDT Office Visit Orthopedic Surgery - [place] [address] [facility] [address] [place] [phone] Shine Quiroz DPDidier [address] [facility] [address] [place] [address] 07/31/2025 1:00 PM EDT Office Visit Vascular Surgery - [place] [address] [facility] [address] [place] [address] Robson Chin MD [address] [facility] [address] [place] [address] Health Maintenance Due Date Last Done Comments Diabetes: Annual GFR (Glomerular Filtration Rate) 1957 Diabetes: Annual Foot Exam 1967 Diabetes: Annual Retina Eye Exam 1967 RSV Immunization Adult Patients (1 - Risk 60-74 years 1-dose series) 2017 DTaP,Tdap,and Td Vaccines (3 - Td or Tdap) 07/06/2019 07/06/2009, 06/02/2009 Pneumococcal Vaccine: 50+ Years (3 of 3 - PCV20 or PCV21) 08/14/2022 08/14/2017, 08/08/2016 Abdominal Aortic Aneurysm (AAA) Screen 10/07/2022 Colorectal Cancer Screening: Colonoscopy 10/07/2022 Falls Risk Assessment 10/07/2022 Hepatitis C Screening 10/07/2022 Medicare Annual Wellness Visit 10/07/2022 Social Influencers of Health Screening 10/07/2022 Hypertension/CHF/CAD Annual BMP Blood Test 10/08/2022 Diabetes: Annual Urine Albumin-Creatinine Ratio (uACR) 10/12/2022 08/11/2020 Diabetes: Blood Sugar Control Test (HGBA1C) 10/12/2022 COVID-19 Vaccine ( season) 2024 10/04/2021, 01/04/2021, 12/13/2020 Zoster Vaccines (2 of 2) 07/15/2024 05/20/2024 Depression Screening 10/29/2024 Influenza Vaccine (#1) 2025 , 06/28/2023, 11/10/2021, Additional history exists Cholesterol Screening (Lipid Panel) 08/11/2025 08/11/2020, 06/25/2019, 04/09/2018 MMR Vaccines Aged Out 07/06/2009, 06/02/2009 No lo nger eligible based on patient's age to complete this topic Hepatitis B Vaccines Completed 08/28/2019, 04/02/2019, 02/20/2019, Additional history exists HIB Vaccines Aged Out No longer eligi [...] to complete this topic RSV Immunization Patients Under 20 months Aged Out No longer eligible based on patient's age to complete this topic Varicella Vaccines Aged Out No longer eligible based on patient's age to complete this topic Insurance MEDICAID - [place] [address] Care Teams Supervisor Long Goods Relationship Specialty Start Date End Date Ko Kenyon MD [address] [place] [address] PCP - General Internal Medicine 06/10/21
== END 2025-06-17 14:01 | disposition home or self-care (01) ==
LOC: HO.HUSH 13:34
PROVIDERS: PCP Hospitalist; Visit Provider Urology
DX: N52.9 Male erectile dysfunction, unspecified (principal)
CPT/HCPCS: 99213

== ENCOUNTER → 2025-06-17 13:34 | Outpatient (BNVA) | payer MEDICARE, MEDICAID, SELFPAY | PROVIDERS: PCP Hospitalist; Visit Provider Urology | DX: N52.9 Male erectile dysfunction, unspecified (principal) | CPT/HCPCS: 99212 ==